=== PATIENT | female | born 1960 | race Caucasian/White ===

== ENCOUNTER → 2017-05-30 | Outpatient (REF) | payer OTHER ==
[~2017-05-30] MED LIST: /GLIM2TA PO; ALBU2TA INH; BUSP10TA PO; CEFD1CAP8 PO; CEFT500T PO; CLAR10CA3 PO; DRIS1CAP PO; FLON0.054; GABA-283 PO; GLUC500T PO; JANU100T PO; LASI20TA PO; LIDO5DIS41 TD; LIPI80TA PO; METF850T PO; MIRA3350 PO; NEXI20CA PO; NEXI40GR PO; NICO21DI5 TD; NICO21PAT EXT; NORC10TA PO; NORC7.5T35 PO; NORCOTAB PO; PRED20TAB PO; PRED50TA PO; PROT20TA11 PO; PROZ20CA11 PO; PROZ40CA PO; SING5CHW PO; SKEL800T97 PO; TIOT18INH INH; TRAD5TAB PO; TYLE325T5 PO; ZETI10TA30 PO; ZITH250T PO; spiriva handihaler INH
[2017-05-30 14:13] LABS: ALBUMIN 4.7 GM/DL (3.2-5.2); ALBUMIN/GLOBULIN RATIO 1.27 (1.00-1.93); ALKALINE PHOSPHATASE 111 U/L (45-117); ALT/SGPT 24 U/L (12-78); ANION GAP 5 MEQ/L (8-16); AST/SGOT 13 U/L (15-37); BILIRUBIN,TOTAL 0.5 MG/DL (0.2-1.0); BLOOD UREA NITROGEN 7 MG/DL (7-18); CALCIUM LEVEL 10.2 MG/DL (8.5-10.1); CARBON DIOXIDE LEVEL 43 MEQ/L (21-32); CHLORIDE LEVEL 90 MEQ/L (98-107); CHOLESTEROL LEVEL 167 MG/DL (<200); CREATININE FOR GFR 0.69 MG/DL (0.55-1.02); GLOMERULAR FILTRATION RATE > 60.0 (>51); GLUCOSE, FASTING 203 MG/DL (70-105); MAGNESIUM LEVEL 1.9 MG/DL (1.8-2.4); POTASSIUM SERUM 4.1 MEQ/L (3.5-5.1); SODIUM LEVEL 138 MEQ/L (136-145); TOTAL PROTEIN 8.4 GM/DL (6.4-8.2); TRIGLYCERIDES LEVEL 162 MG/DL (<150)
[2017-06-05 00:08] LABS: BENZODIAZEPINES, URINE SCREEN Negative ng/mL (Cutoff=200); METHADONE, URINE SCREEN Negative ng/mL (Cutoff=300); OPIATES, URINE Positive ng/mL (Cutoff=300)
== END ==
LOC: M SFHCPLAZ 10:39
PROVIDERS: ATTEND Family Medicine
DX: E78.2 Mixed hyperlipidemia (principal); Z71.1 Person with feared health complaint in whom no diagnosis is made; E11.9 Type 2 diabetes mellitus without complications; I10 Essential (primary) hypertension; E55.9 Vitamin D deficiency, unspecified; M47.816 Spondylosis without myelopathy or radiculopathy, lumbar region

== ENCOUNTER → 2017-10-02 | Outpatient (CLI) | payer OTHER ==
[2017-10-02 09:21] LABS: BASO % 0.4 % (0.0-1.0); EOS # 0.2 10^3/uL (0.0-0.50); EOS % 1.7 % (0.0-3.0); IMMATURE GRANULOCYTE % 0.3 % (0-0); LYMPH # 2.7 10^3/uL (1.5-4.5); MEAN CORPUSCULAR HEMOGLOBIN 31.1 pg (27.0-33.0); MEAN CORPUSCULAR HGB CONC 31.5 g/dl (32.0-36.5); MEAN CORPUSCULAR VOLUME 98.7 fl (80.0-96.0); MONO # 0.6 10^3/uL (0.0-0.8); MONO % 6.5 % (0.0-5.0); NEUTROPHILS % 63.1 % (36.0-66.0); PLATELET COUNT, AUTOMATED 249 10^3/uL (150-450); RED CELL DISTRIBUTION WIDTH 12.5 % (11.5-14.5); WHITE BLOOD COUNT 9.5 10^3/uL (4.0-10.0)
[2017-10-02 09:47] LABS: ALBUMIN 4.4 GM/DL (3.2-5.2); ALBUMIN/GLOBULIN RATIO 1.38 (1.00-1.93); ALKALINE PHOSPHATASE 100 U/L (45-117); ALT/SGPT 25 U/L (12-78); ANION GAP 2 MEQ/L (8-16); AST/SGOT 12 U/L (7-37); BILIRUBIN,TOTAL 0.5 MG/DL (0.2-1.0); BLOOD UREA NITROGEN 9 MG/DL (7-18); CALCIUM LEVEL 9.9 MG/DL (8.5-10.1); CARBON DIOXIDE LEVEL 44 MEQ/L (21-32); CHLORIDE LEVEL 94 MEQ/L (98-107); CREATININE FOR GFR 0.59 MG/DL (0.55-1.02); FERRITIN 102 NG/ML (8-252); GLOMERULAR FILTRATION RATE > 60.0 (>51); GLUCOSE, FASTING 176 MG/DL (70-105); PERCENT SATURATION 41.1 % (13.2-45.0); POTASSIUM SERUM 4.2 MEQ/L (3.5-5.1); SODIUM LEVEL 140 MEQ/L (136-145); TOTAL IRON BINDING CAPACITY 333 UG/DL (250-450); TOTAL PROTEIN 7.6 GM/DL (6.4-8.2)
[2017-10-02 12:09] LABS: VITAMIN B12 LEVEL 352 PG/ML (247-911)
== END ==
LOC: M LAB 08:53
PROVIDERS: ATTEND Family Medicine
DX: R10.13 Epigastric pain (principal)

== ENCOUNTER → 2017-10-08 | Outpatient (CLI) | payer OTHER ==
[~2017-10-08] MED LIST changes: +ISOVUE-370 76% 100ML VIAL (Q9967) As Ordered ONE
--- NOTE | 2017-10-08 14:15 | REP ---
Clinical: Cough. Dyspnea. Technique: Axial contrast enhanced images from the thoracic inlet to the upper abdomen using 100 ml Isovue 370 intravenous contrast material with coronal and sagittal re-formations. Comparison: 02/19/2014. Findings: Subtle chronic posterior subpleural scarring is appreciated bilaterally and stable compared to 2013. Focus of scarring along the medial right middle lobe is also identified and stable. Small new areas of fibroatelectatic change to the lingula and left lung base are identified. No acute, significant consolidation nodule or mass lesion is appreciated. No pleural effusion or pneumothorax. Tracheobronchial tree is patent. No significant axillary, hilar, or mediastinal adenopathy. Mediastinum demonstrates stable atherosclerotic changes to the thoracic aorta and coronary arteries without aortic aneurysm or cardiomegaly. No pericardial effusion. Musculoskeletal structures are intact. Upper abdomen demonstrates normal bilateral adrenal glands and evidence for prior cholecystectomy. Impression: 1. Chronic stable changes are appreciated. 2. A relatively new triangular focus of density in the lingula measures 2 cm maximal diameter and likely represents fibroatelectatic change and less likely active pathology. Consider reevaluation in 6 - 9 months to evaluate for stability. 3. No further significant mediastinal or pleuroparenchymal process appreciated. Signed by Skinny Davila MD 10/08/2017 02:06 P
== END ==
LOC: M RAD 13:05
PROVIDERS: ATTEND Family Medicine
DX: R05 Cough (principal); R06.00 Dyspnea, unspecified; R91.8 Other nonspecific abnormal finding of lung field
CPT/HCPCS: 71260; Q9967

== ENCOUNTER → 2017-10-18 | Outpatient (REF) | payer OTHER ==
[~2017-10-18] MED LIST changes: -ISOVUE-370 76% 100ML VIAL (Q9967) As Ordered ONE
== END ==
LOC: M SFHCWAGY 11:29
PROVIDERS: ATTEND Nurse Practitioner Women's Health
DX: Z12.4 Encounter for screening for malignant neoplasm of cervix (principal)

== ENCOUNTER → 2017-10-18 | Outpatient (CLI) | payer OTHER ==
--- NOTE | 2017-10-18 11:41 | REPMRS ---
Patient History The patient states she had a clinical breast exam in 10/2017. Patient is postmenopausal. Family history of prostate cancer in maternal uncle at age 50 or over. Digital Woman Screen Mammo: October 18, 2017 - Exam #: [id number] Bilateral CC and MLO view(s) were taken. Technologist: Ashely Hendrix, Technologist Prior study comparison: February 09, 2015, digital woman screen mammo performed at [facility] to [facility]. January 21, 2013, digital woman screen mammo performed at [facility]. April 25, 2011, digital mammo diagnostic bilateral, performed at [facility]. FINDINGS: There are scattered fibroglandular densities. There has been no change in the appearance of the mammogram from the prior studies. There is a mild amount of scattered fibroglandular density which is fairly symmetric. There is no interval development of dominant mass, architectural distortion, or clustered microcalcification suggestive of malignancy. ASSESSMENT: BI-RADS/ACR category 1 mammogram. Negative. Recommendation Routine screening mammogram in 1 year (for women over age 40). This mammogram was interpreted with the aid of an FDA-approved computer-aided dectection system. Electronically Signed By: Dudley Heath MD 10/18/17 [id number]
== END ==
LOC: M WHC 10:39
PROVIDERS: ATTEND Family Medicine
DX: Z12.31 Encounter for screening mammogram for malignant neoplasm of breast (principal); Z78.0 Asymptomatic menopausal state

== ENCOUNTER → 2017-10-23 | Outpatient (CLI) | payer OTHER ==
--- NOTE | 2017-10-24 08:19 | REP ---
PELVIC ULTRASOUND: CLINICAL: Pelvic and adnexal tenderness. TECHNIQUE: Transabdominal pelvic ultrasound followed by transvaginal examination for better evaluation of the endometrium and adnexa with color Doppler evaluation of the ovaries. FINDINGS: Bladder is unremarkable and measures 6.4 x 8.0 x 6.3 cm. Heterogeneous anteverted uterus measures 5.4 x 2.9 x 4.6 cm. Endometrial complex measures 4.2 mm in thickness. Very small cysts noted in the junctional zone are chronic and nonspecific/incidental. Left anterior intramural fibroid measures 1.9 x 1.7 x 1.6 cm. The bilateral ovaries are normal in appearance and vascularity without torsion. Right ovary measures 2.1 x 1.0 x 1.8 cm. Left ovary measures 1.7 x 0.9 x 1.7 cm. Right RI equals 0.52. Left RI equals 0.58. No pelvic fluid or adnexal mass lesion. IMPRESSION: 1. Heterogeneous anteverted uterus with 1.9 cm left anterior intramural fibroid. 2. Normal appearance and vascularity to the bilateral ovaries without torsion.
== END ==
LOC: M WHC 09:53
PROVIDERS: ATTEND Nurse Practitioner Women's Health
DX: R10.2 Pelvic and perineal pain (principal); R63.0 Anorexia; R14.0 Abdominal distension (gaseous)

== ENCOUNTER → 2017-12-10 | Outpatient (CLI) | payer OTHER ==
[2017-12-10 08:52] LABS: BASO # 0.1 10^3/uL (0.0-0.2); BASO % 0.4 % (0.0-1.0); EOS # 0.2 10^3/uL (0.0-0.50); EOS % 1.8 % (0.0-3.0); HEMATOCRIT 45.7 % (36.0-47.0); HEMOGLOBIN 14.6 g/dl (12.0-16.0); IMMATURE GRANULOCYTE % 0.2 % (0-0); LYMPH # 3.8 10^3/uL (1.5-4.5); LYMPH % 31.4 % (24.0-44.0); MEAN CORPUSCULAR HEMOGLOBIN 31.7 pg (27.0-33.0); MEAN CORPUSCULAR HGB CONC 31.9 g/dl (32.0-36.5); MEAN CORPUSCULAR VOLUME 99.1 fl (80.0-96.0); MONO # 0.7 10^3/uL (0.0-0.8); MONO % 5.6 % (0.0-5.0); NEUTROPHILS # 7.4 10^3/uL (1.8-7.7); NEUTROPHILS % 60.6 % (36.0-66.0); PLATELET COUNT, AUTOMATED 362 10^3/uL (150-450); RED BLOOD COUNT 4.61 10^6/uL (4.00-5.40); RED CELL DISTRIBUTION WIDTH 12.2 % (11.5-14.5); RETIC HEMOGLOBIN EQUIVALENT 36.9 pg (24-36); RETICULOCYTE # 76.5 10^9/L (17-77); RETICULOCYTE % 1.7 % (0.5-1.5); WHITE BLOOD COUNT 12.2 10^3/uL (4.0-10.0)
[2017-12-10 08:55] LABS: HEMATOCRIT 45.7 % (36.0-47.0)
[2017-12-10 09:16] LABS: ALBUMIN 4.4 GM/DL (3.2-5.2); ALBUMIN/GLOBULIN RATIO 1.38 (1.00-1.93); ALKALINE PHOSPHATASE 132 U/L (45-117); ALT/SGPT 23 U/L (12-78); ANION GAP 2 MEQ/L (8-16); AST/SGOT 16 U/L (7-37); BILIRUBIN,TOTAL 0.3 MG/DL (0.2-1.0); BLOOD UREA NITROGEN 7 MG/DL (7-18); C REACTIVE PROTEIN QUANTITATIV < 0.30 MG/DL (0.00-0.30); CALCIUM LEVEL 9.5 MG/DL (8.5-10.1); CARBON DIOXIDE LEVEL 42 MEQ/L (21-32); CHLORIDE LEVEL 93 MEQ/L (98-107); CPK CREATINE PHOSPHOKINASE 61 U/L (26-192); CREATININE FOR GFR 0.66 MG/DL (0.55-1.02); GLOMERULAR FILTRATION RATE > 60.0 (>51); GLUCOSE, FASTING 193 MG/DL (70-100); POTASSIUM SERUM 4.4 MEQ/L (3.5-5.1); SODIUM LEVEL 137 MEQ/L (136-145); TOTAL PROTEIN 7.6 GM/DL (6.4-8.2)
[2017-12-10 12:29] LABS: CARCINOEMBRYONIC ANTIGEN 2.6 NG/ML (<2.5)
[2017-12-10 12:56] LABS: CA 125 11.4 U/ML (<30.2)
[2017-12-10 13:06] LABS: PRETREATED FOLATE FOR RBCFOL 11.7 NG/ML; RBC FOLATE 537.6 NG/ML (280-791)
[2017-12-10 13:07] LABS: CA15-3 ANTIGEN 14.3 U/ML (<32.4)
== END ==
LOC: M LAB 08:19
DX: R63.4 Abnormal weight loss (principal)
CPT/HCPCS: 82378

== ENCOUNTER → 2018-01-07 | Outpatient (CLI) | payer OTHER ==
[~2018-01-07] MED LIST changes: -/GLIM2TA PO; -ALBU2TA INH; -BUSP10TA PO; -CEFD1CAP8 PO; -CEFT500T PO; -CLAR10CA3 PO; -DRIS1CAP PO; -FLON0.054; -GABA-283 PO; +GASTROGRAFIN SOLUTION 30ML (Q9963) As Ordered; -GLUC500T PO; +ISOVUE-370 76% 100ML VIAL (Q9967) As Ordered; -JANU100T PO; -LASI20TA PO; -LIDO5DIS41 TD; -LIPI80TA PO; -METF850T PO; -MIRA3350 PO; -NEXI20CA PO; -NEXI40GR PO; -NICO21DI5 TD; -NICO21PAT EXT; -NORC10TA PO; -NORC7.5T35 PO; -NORCOTAB PO; -PRED20TAB PO; -PRED50TA PO; -PROT20TA11 PO; -PROZ20CA11 PO; -PROZ40CA PO; -SING5CHW PO; -SKEL800T97 PO; -TIOT18INH INH; -TRAD5TAB PO; -TYLE325T5 PO; -ZETI10TA30 PO; -ZITH250T PO; -spiriva handihaler INH
== END ==
LOC: M RAD 14:30
DX: K57.90 Diverticulosis of intestine, part unspecified, without perforation or abscess without bleeding (principal); R10.13 Epigastric pain; R63.4 Abnormal weight loss
CPT/HCPCS: Q9963

== ENCOUNTER → 2018-02-03 | Outpatient (CLI) | payer OTHER | LOC: M RAD 13:52 | DX: Z12.2 Encounter for screening for malignant neoplasm of respiratory organs (principal) | CPT/HCPCS: G0297 ==

== ENCOUNTER 2018-03-13 11:15 | Inpatient (IN) | payer OTHER ==
[2018-03-13 12:13] LABS: BASO % 0.2 % (0.0-1.0); HEMATOCRIT 38.2 % (36.0-47.0); IMMATURE GRANULOCYTE % 0.2 % (0-3.0); LYMPH # 0.6 10^3/uL (1.5-4.5); LYMPH % 7.6 % (24.0-44.0); MEAN CORPUSCULAR HEMOGLOBIN 31.1 pg (27.0-33.0); MEAN CORPUSCULAR HGB CONC 31.4 g/dl (32.0-36.5); MONO # 0.7 10^3/uL (0.0-0.8); MONO % 7.9 % (0.0-5.0); NEUTROPHILS # 6.9 10^3/uL (1.8-7.7); NEUTROPHILS % 84.1 % (36.0-66.0); PLATELET COUNT, AUTOMATED 231 10^3/uL (150-450); RED BLOOD COUNT 3.86 10^6/uL (4.00-5.40); RED CELL DISTRIBUTION WIDTH 12.1 % (11.5-14.5); WHITE BLOOD COUNT 8.3 10^3/uL (4.0-10.0)
[2018-03-13] MEDS: methylPREDNISolone INJ 125 MG/2 ML VIAL (J2930) IV (12:14)
[2018-03-13 12:29] LABS: LACTIC ACID SEPSIS PROTOCOL 1.2 MMOL/L (0.4-2.0)
[2018-03-13 12:30] LABS: BLOOD UREA NITROGEN 9 MG/DL (7-18); CALCIUM LEVEL 9.3 MG/DL (8.5-10.1); CHLORIDE LEVEL 87 MEQ/L (98-107); CPK CREATINE PHOSPHOKINASE 93 U/L (26-192); CREATININE FOR GFR 0.57 MG/DL (0.55-1.30); GLOMERULAR FILTRATION RATE > 60.0 (>51); GLUCOSE, FASTING 189 MG/DL (70-100); POTASSIUM SERUM 3.6 MEQ/L (3.5-5.1); SODIUM LEVEL 134 MEQ/L (136-145); TROPONIN I < 0.02 NG/ML (< 0.10)
[2018-03-13] MEDS: IPRATROPIUM 0.5MG/ALBUTEROL 2.5MG INH SOL UD 3ML (DUONEB)(J7620) NEB ×7 (12:31→19:38)
[2018-03-13 12:37] LABS: CK-MB VALUE MASS < 1.0 NG/ML (<3.6); MB/CK RELATIVE INDEX 1.07 (< OR =4); NT-PRO BNP 72 PG/ML (<125); THYROID STIMULATING HORMONE 0.303 uIU/ML (0.358-3.740)
[2018-03-13 12:40] LABS: ABG BASE EXCESS 13.5 (-2.0-2.0); ABG HCO3 42.2 MEQ/L (22.0-26.0); ABG O2 SATURATION 91.6 % (95.0-99.0); ABG PARTIAL PRESSURE O2 63.9 mmHg (75.0-100.0); ABG STANDARD HCO3 37.2 MEQ/L (22.0-26.0); ABG TOTAL CO2 44.6 MEQ/L (22.0-29.0); ABG pH (ARTERIAL) 7.364 UNITS (7.350-7.450)
[2018-03-13 12:43] LABS: ABG PARTIAL PRESSURE CO2 75.8 mmHg (35.0-45.0)
[2018-03-13 13:05] LABS: ANION GAP 1 MEQ/L (8-16); CARBON DIOXIDE LEVEL 46 MEQ/L (21-32)
[2018-03-13] MEDS ORDERED: GLUCOSE 4 GM CHEW TABLET PO (19:00)
[2018-03-13] MEDS ORDERED: IPRATROPIUM 0.5MG/ALBUTEROL 2.5MG INH SOL UD 3ML (DUONEB)(J7620) NEB (19:00)
[2018-03-13] MEDS ORDERED: DEXTROSE 50% 50 ML SYRINGE IV (19:00)
[2018-03-13] MEDS ORDERED: GLUCAGON FOR INJ 1 MG VIAL (J1610) SC (19:00)
[2018-03-13] MEDS ORDERED: ONDANSETRON 4MG/2ML VIAL (J2405) IV (19:00)
[2018-03-13 19:28] LABS: T UPTAKE 32 % (30-39); THYROXINE (T4) 9.5 UG/DL (4.5-12.0)
[2018-03-13] MEDS: cefTRIAXone SOD 2 GM in D5W MINI-BAG PLUS 50 ML IV (20:13)
[2018-03-13] MEDS: ADVAIR HFA 230/21MCG INHALER INH (21:00)
[2018-03-13] MEDS: NICOTINE 21MG/24HR 1 EA TRANSDERMAL TD (21:00)
[2018-03-13 22:15] LABS: CK-MB VALUE MASS < 1.0 NG/ML (<3.6); CPK CREATINE PHOSPHOKINASE 100 U/L (26-192); TROPONIN I < 0.02 NG/ML (< 0.10)
[2018-03-13 23:13] LABS: BEDSIDE GLUCOSE 388 MG/DL (70-105)
[2018-03-14] MEDS: POTASSIUM CHLORIDE 10 MEQ SR TABLET PO (00:01)
[2018-03-14] MEDS: SENOKOT S TAB PO ×3 (00:01→21:25)
[2018-03-14] MEDS: methylPREDNISolone INJ 125 MG/2 ML VIAL (J2930) IV ×3 (00:01→23:23)
[2018-03-14] MEDS: HumaLOG INSULIN (NovoLOG) PER UNIT SC ×5 (00:02→21:26)
[2018-03-14] MEDS: AZITHROMYCIN INJ 500 MG, VIAL MATE ADAPTER 1 EACH in D5W 250 ML IV ×2 (00:03→22:29)
[2018-03-14] MEDS: IPRATROPIUM 0.5MG/ALBUTEROL 2.5MG INH SOL UD 3ML (DUONEB)(J7620) NEB ×4 (02:52→19:52)
[2018-03-14 05:44] LABS: HEMOGLOBIN 12.1 g/dl (12.0-15.5); MEAN CORPUSCULAR HEMOGLOBIN 30.7 pg (27.0-33.0); MEAN CORPUSCULAR HGB CONC 31.8 g/dl (32.0-36.5); MEAN CORPUSCULAR VOLUME 96.4 fl (80.0-96.0); PLATELET COUNT, AUTOMATED 249 10^3/uL (150-450); RED BLOOD COUNT 3.94 10^6/uL (4.00-5.40); RED CELL DISTRIBUTION WIDTH 11.9 % (11.5-14.5); WHITE BLOOD COUNT 6.5 10^3/uL (4.0-10.0)
[2018-03-14 06:06] LABS: ANION GAP 3 MEQ/L (8-16); BLOOD UREA NITROGEN 11 MG/DL (7-18); C REACTIVE PROTEIN QUANTITATIV 9.23 MG/DL (0.00-0.30); CALCIUM LEVEL 9.7 MG/DL (8.5-10.1); CARBON DIOXIDE LEVEL 45 MEQ/L (21-32); CHLORIDE LEVEL 88 MEQ/L (98-107); GLOMERULAR FILTRATION RATE > 60.0 (>51); GLUCOSE, FASTING 272 MG/DL (70-100); MAGNESIUM LEVEL 2.2 MG/DL (1.8-2.4); POTASSIUM SERUM 3.7 MEQ/L (3.5-5.1); SODIUM LEVEL 136 MEQ/L (136-145)
[2018-03-14] MEDS: ADVAIR HFA 230/21MCG INHALER INH ×2 (07:33→19:51)
[2018-03-14] MEDS: OMEPRAZOLE 20 MG CAP PO (08:26)
[2018-03-14] MEDS: ENOXAPARIN 40 MG/0.4 ML SYRINGE (J1650) SC (08:26)
[2018-03-14] MEDS: EZETIMIBE 10 MG TAB (ZETIA) PO (08:26)
[2018-03-14] MEDS: FLUoxetine 20 MG CAP PO (08:26)
[2018-03-14] MEDS: FUROSEMIDE 20 MG TAB PO (08:27)
[2018-03-14] MEDS: LORATADINE 10 MG TAB PO (08:27)
[2018-03-14] MEDS: MONTELUKAST 10 MG TAB PO (08:27)
[2018-03-14 11:45] LABS: BEDSIDE GLUCOSE 269 MG/DL (70-105)
[2018-03-14 17:15] LABS: BEDSIDE GLUCOSE 215 MG/DL (70-105)
[2018-03-14 21:12] LABS: BEDSIDE GLUCOSE 304 MG/DL (70-105)
[2018-03-14] MEDS: cefTRIAXone SOD 2 GM in D5W MINI-BAG PLUS 50 ML IV (21:25)
[2018-03-14] MEDS: NICOTINE 21MG/24HR 1 EA TRANSDERMAL TD (21:27)
[2018-03-14] MEDS: ACETAMINOPHEN 500 MG TAB PO (22:29)
[2018-03-15] MEDS: IPRATROPIUM 0.5MG/ALBUTEROL 2.5MG INH SOL UD 3ML (DUONEB)(J7620) NEB ×4 (01:51→20:00)
[2018-03-15 05:40] LABS: HEMATOCRIT 39.5 % (36.0-47.0); HEMOGLOBIN 12.3 g/dl (12.0-15.5); MEAN CORPUSCULAR HEMOGLOBIN 30.5 pg (27.0-33.0); MEAN CORPUSCULAR HGB CONC 31.1 g/dl (32.0-36.5); PLATELET COUNT, AUTOMATED 252 10^3/uL (150-450); RED BLOOD COUNT 4.03 10^6/uL (4.00-5.40); RED CELL DISTRIBUTION WIDTH 11.9 % (11.5-14.5); WHITE BLOOD COUNT 13.3 10^3/uL (4.0-10.0)
[2018-03-15 05:57] LABS: BLOOD UREA NITROGEN 13 MG/DL (7-18); C REACTIVE PROTEIN QUANTITATIV 3.93 MG/DL (0.00-0.30); CALCIUM LEVEL 9.8 MG/DL (8.5-10.1); CHLORIDE LEVEL 90 MEQ/L (98-107); CREATININE FOR GFR 0.63 MG/DL (0.55-1.30); GLOMERULAR FILTRATION RATE > 60.0 (>51); GLUCOSE, FASTING 299 MG/DL (70-100); MAGNESIUM LEVEL 2.2 MG/DL (1.8-2.4); POTASSIUM SERUM 4.7 MEQ/L (3.5-5.1); SODIUM LEVEL 135 MEQ/L (136-145)
[2018-03-15 06:20] LABS: CARBON DIOXIDE LEVEL 49 MEQ/L (21-32)
[2018-03-15] MEDS: ADVAIR HFA 230/21MCG INHALER INH ×2 (07:51→20:08)
[2018-03-15] MEDS: FLUoxetine 20 MG CAP PO (09:54)
[2018-03-15] MEDS: OMEPRAZOLE 20 MG CAP PO (09:54)
[2018-03-15] MEDS: FUROSEMIDE 20 MG TAB PO (09:54)
[2018-03-15] MEDS: SENOKOT S TAB PO ×2 (09:55→21:13)
[2018-03-15] MEDS: MONTELUKAST 10 MG TAB PO (09:55)
[2018-03-15] MEDS: LORATADINE 10 MG TAB PO (09:55)
[2018-03-15] MEDS: ENOXAPARIN 40 MG/0.4 ML SYRINGE (J1650) SC (09:55)
[2018-03-15] MEDS: EZETIMIBE 10 MG TAB (ZETIA) PO (09:55)
[2018-03-15] MEDS: HumaLOG INSULIN (NovoLOG) PER UNIT SC ×4 (09:58→21:14)
[2018-03-15 11:36] LABS: BEDSIDE GLUCOSE 257 MG/DL (70-105)
[2018-03-15] MEDS: methylPREDNISolone INJ 125 MG/2 ML VIAL (J2930) IV ×2 (12:34→23:37)
[2018-03-15 16:30] LABS: BEDSIDE GLUCOSE 308 MG/DL (70-105)
[2018-03-15] MEDS: cefTRIAXone SOD 2 GM in D5W MINI-BAG PLUS 50 ML IV (19:53)
[2018-03-15 20:39] LABS: BEDSIDE GLUCOSE 392 MG/DL (70-105)
[2018-03-15] MEDS: AZITHROMYCIN INJ 500 MG, VIAL MATE ADAPTER 1 EACH in D5W 250 ML IV (21:11)
[2018-03-15] MEDS: ACETAMINOPHEN 500 MG TAB PO (21:13)
[2018-03-15] MEDS: NICOTINE 21MG/24HR 1 EA TRANSDERMAL TD (21:14)
[2018-03-16] MEDS: IPRATROPIUM 0.5MG/ALBUTEROL 2.5MG INH SOL UD 3ML (DUONEB)(J7620) NEB ×4 (01:45→20:00)
[2018-03-16 06:06] LABS: HEMATOCRIT 38.4 % (36.0-47.0); HEMOGLOBIN 12.2 g/dl (12.0-15.5); MEAN CORPUSCULAR HEMOGLOBIN 30.5 pg (27.0-33.0); MEAN CORPUSCULAR HGB CONC 31.8 g/dl (32.0-36.5); PLATELET COUNT, AUTOMATED 263 10^3/uL (150-450); RED CELL DISTRIBUTION WIDTH 11.9 % (11.5-14.5); WHITE BLOOD COUNT 9.3 10^3/uL (4.0-10.0)
[2018-03-16 06:32] LABS: BLOOD UREA NITROGEN 11 MG/DL (7-18); C REACTIVE PROTEIN QUANTITATIV 1.79 MG/DL (0.00-0.30); CALCIUM LEVEL 9.3 MG/DL (8.5-10.1); CHLORIDE LEVEL 89 MEQ/L (98-107); CREATININE FOR GFR 0.46 MG/DL (0.55-1.30); GLOMERULAR FILTRATION RATE > 60.0 (>51); GLUCOSE, FASTING 279 MG/DL (70-100); MAGNESIUM LEVEL 2.2 MG/DL (1.8-2.4); POTASSIUM SERUM 4.3 MEQ/L (3.5-5.1); SODIUM LEVEL 137 MEQ/L (136-145)
[2018-03-16 06:42] LABS: ANION GAP 1 MEQ/L (8-16)
[2018-03-16 06:43] LABS: CARBON DIOXIDE LEVEL 47 MEQ/L (21-32)
[2018-03-16] MEDS: ADVAIR HFA 230/21MCG INHALER INH ×2 (08:04→21:00)
[2018-03-16] MEDS: OMEPRAZOLE 20 MG CAP PO (09:30)
[2018-03-16] MEDS: FLUoxetine 20 MG CAP PO (09:30)
[2018-03-16] MEDS: HumaLOG INSULIN (NovoLOG) PER UNIT SC ×4 (09:30→21:02)
[2018-03-16] MEDS: MONTELUKAST 10 MG TAB PO (09:30)
[2018-03-16] MEDS: SENOKOT S TAB PO ×2 (09:30→21:03)
[2018-03-16] MEDS: ENOXAPARIN 40 MG/0.4 ML SYRINGE (J1650) SC (09:30)
[2018-03-16] MEDS: FUROSEMIDE 20 MG TAB PO (09:31)
[2018-03-16] MEDS: LORATADINE 10 MG TAB PO (09:31)
[2018-03-16] MEDS: EZETIMIBE 10 MG TAB (ZETIA) PO (09:31)
[2018-03-16 12:20] LABS: BEDSIDE GLUCOSE 295 MG/DL (70-105)
[2018-03-16] MEDS ORDERED: MOM 30ML SUSPENSION UDC PO (12:30)
[2018-03-16] MEDS ORDERED: BISACODYL 10 MG SUPP PR (12:30)
[2018-03-16] MEDS: methylPREDNISolone INJ 125 MG/2 ML VIAL (J2930) IV ×2 (13:03→23:32)
[2018-03-16 17:07] LABS: BEDSIDE GLUCOSE 282 MG/DL (70-105)
[2018-03-16] MEDS: cefTRIAXone SOD 2 GM in D5W MINI-BAG PLUS 50 ML IV (19:50)
[2018-03-16] MEDS: AZITHROMYCIN INJ 500 MG, VIAL MATE ADAPTER 1 EACH in D5W 250 ML IV (21:01)
[2018-03-16] MEDS: guaiFENesin ER 600 MG TAB PO (21:02)
[2018-03-16] MEDS: NICOTINE 21MG/24HR 1 EA TRANSDERMAL TD (21:02)
[2018-03-16 21:03] LABS: BEDSIDE GLUCOSE 335 MG/DL (70-105)
[2018-03-16] MEDS: ACETAMINOPHEN 500 MG TAB PO (21:08)
[2018-03-17] MEDS: IPRATROPIUM 0.5MG/ALBUTEROL 2.5MG INH SOL UD 3ML (DUONEB)(J7620) NEB ×4 (02:00→20:00)
[2018-03-17 06:19] LABS: HEMATOCRIT 39.7 % (36.0-47.0); HEMOGLOBIN 12.6 g/dl (12.0-15.5); MEAN CORPUSCULAR HEMOGLOBIN 30.6 pg (27.0-33.0); MEAN CORPUSCULAR HGB CONC 31.7 g/dl (32.0-36.5); MEAN CORPUSCULAR VOLUME 96.4 fl (80.0-96.0); PLATELET COUNT, AUTOMATED 303 10^3/uL (150-450); RED BLOOD COUNT 4.12 10^6/uL (4.00-5.40); RED CELL DISTRIBUTION WIDTH 12.1 % (11.5-14.5); WHITE BLOOD COUNT 8.9 10^3/uL (4.0-10.0)
[2018-03-17 06:35] LABS: ANION GAP 1 MEQ/L (8-16); BLOOD UREA NITROGEN 11 MG/DL (7-18); C REACTIVE PROTEIN QUANTITATIV 1.23 MG/DL (0.00-0.30); CALCIUM LEVEL 9.7 MG/DL (8.5-10.1); CARBON DIOXIDE LEVEL 43 MEQ/L (21-32); CHLORIDE LEVEL 91 MEQ/L (98-107); CREATININE FOR GFR 0.58 MG/DL (0.55-1.30); GLOMERULAR FILTRATION RATE > 60.0 (>51); GLUCOSE, FASTING 325 MG/DL (70-100); MAGNESIUM LEVEL 2.1 MG/DL (1.8-2.4); POTASSIUM SERUM 5.1 MEQ/L (3.5-5.1); SODIUM LEVEL 135 MEQ/L (136-145)
[2018-03-17] MEDS: MONTELUKAST 10 MG TAB PO (08:01)
[2018-03-17] MEDS: FLUoxetine 20 MG CAP PO (08:01)
[2018-03-17] MEDS: OMEPRAZOLE 20 MG CAP PO (08:01)
[2018-03-17] MEDS: guaiFENesin ER 600 MG TAB PO ×2 (08:01→21:57)
[2018-03-17] MEDS: EZETIMIBE 10 MG TAB (ZETIA) PO (08:01)
[2018-03-17] MEDS: FUROSEMIDE 20 MG TAB PO (08:01)
[2018-03-17] MEDS: SENOKOT S TAB PO ×2 (08:01→21:56)
[2018-03-17] MEDS: LORATADINE 10 MG TAB PO (08:01)
[2018-03-17] MEDS: HumaLOG INSULIN (NovoLOG) PER UNIT SC ×4 (08:02→21:57)
[2018-03-17] MEDS: ENOXAPARIN 40 MG/0.4 ML SYRINGE (J1650) SC (08:02)
[2018-03-17] MEDS: ADVAIR HFA 230/21MCG INHALER INH ×2 (08:24→20:27)
[2018-03-17 11:56] LABS: BEDSIDE GLUCOSE 341 MG/DL (70-105)
[2018-03-17] MEDS: methylPREDNISolone INJ 40 MG/1 ML VIAL (J2920) IV (12:34)
[2018-03-17] MEDS: CEFUROXIME 500 MG TAB PO ×2 (12:35→21:56)
[2018-03-17 18:36] LABS: BEDSIDE GLUCOSE 352 MG/DL (70-105)
[2018-03-17 20:36] LABS: BEDSIDE GLUCOSE 402 MG/DL (70-105)
[2018-03-17] MEDS: AZITHROMYCIN 250 MG TAB PO (21:57)
[2018-03-17] MEDS: NICOTINE 21MG/24HR 1 EA TRANSDERMAL TD (21:57)
[2018-03-17] MEDS: ACETAMINOPHEN 500 MG TAB PO (22:00)
[2018-03-18] MEDS: methylPREDNISolone INJ 40 MG/1 ML VIAL (J2920) IV ×2 (00:28→12:00)
[2018-03-18] MEDS: IPRATROPIUM 0.5MG/ALBUTEROL 2.5MG INH SOL UD 3ML (DUONEB)(J7620) NEB ×2 (02:00→08:00)
[2018-03-18 06:51] LABS: HEMATOCRIT 39.1 % (36.0-47.0); HEMOGLOBIN 12.6 g/dl (12.0-15.5); MEAN CORPUSCULAR HEMOGLOBIN 30.8 pg (27.0-33.0); MEAN CORPUSCULAR HGB CONC 32.2 g/dl (32.0-36.5); MEAN CORPUSCULAR VOLUME 95.6 fl (80.0-96.0); PLATELET COUNT, AUTOMATED 319 10^3/uL (150-450); RED BLOOD COUNT 4.09 10^6/uL (4.00-5.40); WHITE BLOOD COUNT 8.3 10^3/uL (4.0-10.0)
[2018-03-18 07:14] LABS: ANION GAP 5 MEQ/L (8-16); BLOOD UREA NITROGEN 13 MG/DL (7-18); C REACTIVE PROTEIN QUANTITATIV 0.63 MG/DL (0.00-0.30); CALCIUM LEVEL 9.1 MG/DL (8.5-10.1); CARBON DIOXIDE LEVEL 41 MEQ/L (21-32); CHLORIDE LEVEL 92 MEQ/L (98-107); CREATININE FOR GFR 0.54 MG/DL (0.55-1.30); GLOMERULAR FILTRATION RATE > 60.0 (>51); GLUCOSE, FASTING 314 MG/DL (70-100); MAGNESIUM LEVEL 2.2 MG/DL (1.8-2.4); POTASSIUM SERUM 4.5 MEQ/L (3.5-5.1); SODIUM LEVEL 138 MEQ/L (136-145)
[2018-03-18] MEDS: guaiFENesin ER 600 MG TAB PO (08:04)
[2018-03-18] MEDS: OMEPRAZOLE 20 MG CAP PO (08:04)
[2018-03-18] MEDS: EZETIMIBE 10 MG TAB (ZETIA) PO (08:04)
[2018-03-18] MEDS: MONTELUKAST 10 MG TAB PO (08:04)
[2018-03-18] MEDS: FUROSEMIDE 20 MG TAB PO (08:04)
[2018-03-18] MEDS: CEFUROXIME 500 MG TAB PO (08:05)
[2018-03-18] MEDS: LORATADINE 10 MG TAB PO (08:05)
[2018-03-18] MEDS: FLUoxetine 20 MG CAP PO (08:05)
[2018-03-18] MEDS: SENOKOT S TAB PO (08:05)
[2018-03-18] MEDS: ENOXAPARIN 40 MG/0.4 ML SYRINGE (J1650) SC (08:05)
[2018-03-18] MEDS: HumaLOG INSULIN (NovoLOG) PER UNIT SC ×2 (08:06→12:13)
[2018-03-18] MEDS: ADVAIR HFA 230/21MCG INHALER INH (08:11)
[2018-03-18 13:16] LABS: BEDSIDE GLUCOSE 319 MG/DL (70-105)
[2018-03-18] MEDS ORDERED: GLIMEPIRIDE 2 MG TAB PO (17:30)
[2018-03-18] MEDS ORDERED: metFORMIN (GLUCOPHAGE) 1000 MG TABLET PO (18:00)
== END 2018-03-18 13:40 | disposition home or self-care (01) | DRG 140 ==
LOC: M ED 11:15 → M ED INP 19:00 → M MSPAV 22:37
DX: J44.1 Chronic obstructive pulmonary disease with (acute) exacerbation (principal); J96.11 Chronic respiratory failure with hypoxia; J96.12 Chronic respiratory failure with hypercapnia; F17.200 Nicotine dependence, unspecified, uncomplicated; E11.9 Type 2 diabetes mellitus without complications; F32.9 Major depressive disorder, single episode, unspecified; Z79.899 Other long term (current) drug therapy; I10 Essential (primary) hypertension; E66.9 Obesity, unspecified; K21.9 Gastro-esophageal reflux disease without esophagitis; E78.5 Hyperlipidemia, unspecified; M19.90 Unspecified osteoarthritis, unspecified site; M51.36 Other intervertebral disc degeneration, lumbar region; Z88.5 Allergy status to narcotic agent; Z91.018 Allergy to other foods

== ENCOUNTER → 2018-05-01 | Outpatient (CLI) | payer OTHER ==
[~2018-05-01] MED LIST changes: +E-Z-GAS II EFFERVESCENT PACKET (SODIUM BICARB./CITRIC ACID/SIMETHICONE) As Ordered; +E-Z-HD 98% w/w 340GM SUSP BTL As Ordered; +E-Z-PAQUE 96% w/w SUSP 176GM BTL As Ordered; -GASTROGRAFIN SOLUTION 30ML (Q9963) As Ordered; -ISOVUE-370 76% 100ML VIAL (Q9967) As Ordered
== END ==
LOC: M RAD 09:02
DX: R63.4 Abnormal weight loss (principal); K21.9 Gastro-esophageal reflux disease without esophagitis
CPT/HCPCS: 74245

== ENCOUNTER → 2018-05-13 | Outpatient (REF) | payer OTHER ==
[2018-05-13 11:55] LABS: BASO # 0.1 10^3/uL (0.0-0.2); BASO % 0.6 % (0.0-1.0); EOS # 0.2 10^3/uL (0.0-0.50); HEMATOCRIT 45.7 % (36.0-47.0); HEMOGLOBIN 14.5 g/dl (12.0-15.5); IMMATURE GRANULOCYTE % 0.5 % (0-3.0); LYMPH # 2.2 10^3/uL (1.5-4.5); LYMPH % 25.6 % (24.0-44.0); MEAN CORPUSCULAR HEMOGLOBIN 31.1 pg (27.0-33.0); MEAN CORPUSCULAR HGB CONC 31.7 g/dl (32.0-36.5); MEAN CORPUSCULAR VOLUME 98.1 fl (80.0-96.0); MONO # 0.6 10^3/uL (0.0-0.8); MONO % 7.3 % (0.0-5.0); NEUTROPHILS # 5.5 10^3/uL (1.8-7.7); PLATELET COUNT, AUTOMATED 341 10^3/uL (150-450); RED BLOOD COUNT 4.66 10^6/uL (4.00-5.40); RED CELL DISTRIBUTION WIDTH 13.7 % (11.5-14.5); RETIC HEMOGLOBIN EQUIVALENT 34.4 pg (24-36); RETICULOCYTE # 94.6 10^9/L (17-77); WHITE BLOOD COUNT 8.5 10^3/uL (4.0-10.0)
[2018-05-13 12:10] LABS: PTH INTACT 75.8 PG/ML (18.5-88.0); TOTAL 25(OH) VITAMIN D 23.8 NG/ML (30.0-100.0); VITAMIN B12 LEVEL 810 PG/ML (247-911)
[2018-05-13 12:12] LABS: ALBUMIN 4.1 GM/DL (3.2-5.2); ALBUMIN/GLOBULIN RATIO 1.24 (1.00-1.93); ALKALINE PHOSPHATASE 94 U/L (45-117); ALT/SGPT 22 U/L (12-78); ANION GAP 8 MEQ/L (8-16); AST/SGOT 14 U/L (7-37); BILIRUBIN,TOTAL 0.2 MG/DL (0.2-1.0); BLOOD UREA NITROGEN 9 MG/DL (7-18); CALCIUM LEVEL 9.2 MG/DL (8.5-10.1); CARBON DIOXIDE LEVEL 35 MEQ/L (21-32); CHLORIDE LEVEL 98 MEQ/L (98-107); CREATININE FOR GFR 0.64 MG/DL (0.55-1.30); GLOMERULAR FILTRATION RATE > 60.0 (>51); GLUCOSE, FASTING 178 MG/DL (70-100); POTASSIUM SERUM 4.5 MEQ/L (3.5-5.1); SODIUM LEVEL 141 MEQ/L (136-145); TOTAL PROTEIN 7.4 GM/DL (6.4-8.2)
[2018-05-13 13:29] LABS: ESTIMATED AVERAGE GLUCOSE 183 MG/DL (60-110)
[2018-05-14 13:23] LABS: ALBUMIN 4.45 GM/DL (3.29-5.55); ALBUMIN % 60.2 % (55.8-66.1); ALPHA-1-GLOBULIN % 4.2 % (2.9-4.9); ALPHA-1-GLOBULINS 0.31 GM/DL (0.17-0.41); ALPHA-2-GLOBULINS % 12.1 % (7.1-11.8); BETA-1-GLOBULINS % 6.7 % (4.7-7.2); BETA-2-GLOBULINS 0.34 GM/DL (0.19-0.55); BETA-2-GLOBULINS % 4.6 % (3.2-6.5); GAMMA GLOBULIN % 12.2 % (11.1-18.8)
== END ==
LOC: M SFHCPLAZ 09:08
DX: E53.8 Deficiency of other specified B group vitamins (principal); E55.9 Vitamin D deficiency, unspecified; E11.9 Type 2 diabetes mellitus without complications; R10.13 Epigastric pain; D75.89 Other specified diseases of blood and blood-forming organs
CPT/HCPCS: 84165

== ENCOUNTER → 2018-05-15 | Outpatient (CLI) | payer OTHER ==
[~2018-05-15] MED LIST changes: -E-Z-GAS II EFFERVESCENT PACKET (SODIUM BICARB./CITRIC ACID/SIMETHICONE) As Ordered; -E-Z-HD 98% w/w 340GM SUSP BTL As Ordered; -E-Z-PAQUE 96% w/w SUSP 176GM BTL As Ordered; +ISOVUE-370 76% 100ML VIAL (Q9967) As Ordered
== END ==
LOC: M RAD 09:00
DX: R91.8 Other nonspecific abnormal finding of lung field (principal)
CPT/HCPCS: Q9967

== ENCOUNTER → 2018-07-07 | Outpatient (REF) | payer OTHER ==
[2018-07-07 12:21] LABS: ESTIMATED AVERAGE GLUCOSE 174 MG/DL (60-110); HEMOGLOBIN A1c 7.7 %
[2018-07-07 12:27] LABS: ALBUMIN 3.8 GM/DL (3.2-5.2); ALKALINE PHOSPHATASE 89 U/L (45-117); ALT/SGPT 20 U/L (12-78); ANION GAP 5 MEQ/L (8-16); AST/SGOT 11 U/L (7-37); BILIRUBIN,TOTAL 0.2 MG/DL (0.2-1.0); BLOOD UREA NITROGEN 9 MG/DL (7-18); CALCIUM LEVEL 9.9 MG/DL (8.5-10.1); CARBON DIOXIDE LEVEL 44 MEQ/L (21-32); CHLORIDE LEVEL 91 MEQ/L (98-107); CHOLESTEROL LEVEL 224 MG/DL (<200); CHOLESTEROL RISK RATIO 4.072 (<5); CREATININE FOR GFR 0.53 MG/DL (0.55-1.30); GLOMERULAR FILTRATION RATE > 60.0 (>51); GLUCOSE, FASTING 196 MG/DL (70-100); HDL CHOLESTEROL 55 MG/DL (>40); NON-HDL-C 169 MG/DL; POTASSIUM SERUM 4.8 MEQ/L (3.5-5.1); SODIUM LEVEL 140 MEQ/L (136-145); TOTAL PROTEIN 7.6 GM/DL (6.4-8.2); TRIGLYCERIDES LEVEL 175 MG/DL (<150)
[2018-07-07 13:00] LABS: BASO % 0.3 % (0.0-1.0); EOS # 0.1 10^3/uL (0.0-0.50); EOS % 0.9 % (0.0-3.0); HEMATOCRIT 46.2 % (36.0-47.0); HEMOGLOBIN 14.1 g/dl (12.0-15.5); IMMATURE GRANULOCYTE % 0.3 % (0-3.0); LYMPH # 1.4 10^3/uL (1.5-4.5); LYMPH % 15.9 % (24.0-44.0); MEAN CORPUSCULAR HEMOGLOBIN 30.9 pg (27.0-33.0); MEAN CORPUSCULAR HGB CONC 30.5 g/dl (32.0-36.5); MEAN CORPUSCULAR VOLUME 101.1 fl (80.0-96.0); MONO # 0.5 10^3/uL (0.0-0.8); MONO % 5.8 % (0.0-5.0); NEUTROPHILS # 6.6 10^3/uL (1.8-7.7); NEUTROPHILS % 76.8 % (36.0-66.0); PLATELET COUNT, AUTOMATED 278 10^3/uL (150-450); RED BLOOD COUNT 4.57 10^6/uL (4.00-5.40); RED CELL DISTRIBUTION WIDTH 12.5 % (11.5-14.5); WHITE BLOOD COUNT 8.6 10^3/uL (4.0-10.0)
== END ==
LOC: M SFHCPLAZ 09:14
DX: M47.816 Spondylosis without myelopathy or radiculopathy, lumbar region (principal); E78.2 Mixed hyperlipidemia; E11.9 Type 2 diabetes mellitus without complications
CPT/HCPCS: 83735

== ENCOUNTER → 2018-07-08 | Outpatient (CLI) | payer OTHER | LOC: M PLARAD 15:23 | DX: R91.1 Solitary pulmonary nodule (principal); E27.9 Disorder of adrenal gland, unspecified | CPT/HCPCS: 78815 ==

== ENCOUNTER 2018-11-14 11:37 | Inpatient (IN) | payer OTHER ==
[~2018-11-14] VITALS: Ht 152.4 cm; Wt 52.8 kg
[~2018-11-14 11:37] MED LIST changes: +/GLIM2TA PO; +ALBU2TA INH; +ALBU83IN INH; +ALOG25TA PO; +AZIT-12 PO; +BUSP10TA PO; +CEFD1CAP8 PO; +CEFT500T PO; +CEFU50TA PO; +CLAR10CA3 PO; +DRIS1CAP PO; +FLON0.054; +GABA-845 PO; +GLIM4TAB PO; +GLUC500T PO; +HYDR-3716 PO; -ISOVUE-370 76% 100ML VIAL (Q9967) As Ordered; +JANU100T PO; +LASI20TA PO; +LIDO5DIS41 TD; +LIPI80TA PO; +LORA-243 PO; +METF10004 PO; +METF850T PO; +MIRA3350 PO; +MONT10TA2 PO; +NEXI20CA PO; +NEXI40GR PO; +NICO21DI5 TD; +NICO21PAT EXT; +NICO21PAT TD; +NORC10TA PO; +NORC7.5T35 PO; +NORCOTAB PO; +OMEP40CA2 PO; +PRED10TA2 PO; +PRED20TAB PO; +PRED50TA PO; +PROT20TA11 PO; +PROZ20CA11 PO; +PROZ40CA PO; +SING5CHW PO; +SKEL800T97 PO; +TIOT18INH INH; +TRAD5TAB PO; +TYLE325T5 PO; +ZETI10TA30 PO; +ZITH250T PO; +spiriva handihaler INH
[2018-11-14] MEDS ORDERED: methylPREDNISolone INJ 125 MG/2 ML VIAL (J2930) IV ONE (11:45)
[2018-11-14] MEDS: IPRATROPIUM 0.5MG/ALBUTEROL 2.5MG INH SOL UD 3ML (DUONEB)(J7620) NEB PRN ×2 (12:11→12:42)
[2018-11-14 12:20] LABS: ABG BASE EXCESS 18.1 (-2.0-2.0); ABG HCO3 54.1 MEQ/L (22.0-26.0); ABG O2 SATURATION 99.7 % (95.0-99.0); ABG PARTIAL PRESSURE O2 283.7 mmHg (75.0-100.0); ABG STANDARD HCO3 42.4 MEQ/L (22.0-26.0); ABG TOTAL CO2 58.9 MEQ/L (22.0-29.0)
[2018-11-14 12:25] LABS: ABG pH (ARTERIAL) 7.158 UNITS (7.350-7.450)
[2018-11-14 12:26] LABS: ABG PARTIAL PRESSURE CO2 156.1 mmHg (35.0-45.0)
[2018-11-14 12:48] LABS: BASO % 0.4 % (0.0-1.0); EOS # 0.1 10^3/uL (0.0-0.50); EOS % 1.2 % (0.0-3.0); HEMATOCRIT 44.9 % (36.0-47.0); HEMOGLOBIN 13.5 g/dl (12.0-15.5); LYMPH # 1.9 10^3/uL (1.5-4.5); LYMPH % 22.8 % (24.0-44.0); MEAN CORPUSCULAR HEMOGLOBIN 31.6 pg (27.0-33.0); MEAN CORPUSCULAR HGB CONC 30.1 g/dl (32.0-36.5); MEAN CORPUSCULAR VOLUME 105.2 fl (80.0-96.0); MONO # 0.7 10^3/uL (0.0-0.8); MONO % 8.7 % (0.0-5.0); NEUTROPHILS # 5.5 10^3/uL (1.8-7.7); NEUTROPHILS % 66.2 % (36.0-66.0); PLATELET COUNT, AUTOMATED 231 10^3/uL (150-450); RED BLOOD COUNT 4.27 10^6/uL (4.00-5.40); WHITE BLOOD COUNT 8.3 10^3/uL (4.0-10.0)
--- NOTE | 2018-11-14 12:55 | REP ---
CT BRAIN WITHOUT CONTRAST: HISTORY: Confusion. COMPARISON CT STUDY: March 01, 2012 CT FINDINGS: Digital lateral pricing intern radiograph is unremarkable. Bone window settings demonstrate an intact bony calvarium. No significant scalp swelling is seen. No intraorbital abnormality is seen. The visualized paranasal sinuses are clear. There is a small radiolucency in the subcortical white matter of the frontal lobes on each side inferiorly. These are most consistent with dilated perivascular spaces which is a normal variant. In any event, they are unchanged from the February 2012 prior study. There is no evidence of intracranial infarction, hemorrhage, mass, extra-axial fluid collection, or midline shift. Celis-white differentiation pattern is otherwise intact. IMPRESSION: No acute intracranial abnormality. Findings unchanged from March 01, 2012. Electronically Signed by Ad Heath MD 11/14/2018 04:13 P
[2018-11-14 12:57] LABS: INR 0.92; PROTHROMBIN TIME 12.5 SECONDS (12.1-14.4)
--- NOTE | 2018-11-14 13:39 | REP ---
PORTABLE CHEST X-RAY: Single view. HISTORY: Dyspnea and cough. COMPARISON STUDY: March 13, 2018. FINDINGS: EKG monitoring electrodes and oxygen delivery tubing are seen. There is discoid atelectasis in the left perihilar region. Lung black are otherwise clear. Heart is not enlarged. Pleural angles are sharp. No bony abnormality is seen. IMPRESSION: Left perihilar plate-like atelectasis. Otherwise no acute disease. Electronically Signed by Ad Heath MD 11/14/2018 04:13 P
[2018-11-14] MEDS ORDERED: CRES10TA32 PO (13:41)
[2018-11-14] MEDS ORDERED: FLON1SPR NARES (13:41)
[2018-11-14] MEDS ORDERED: ATRO0.063 (13:41)
[2018-11-14] MEDS ORDERED: NICOINH INH (13:41)
[2018-11-14] MEDS ORDERED: ALBU17IN2 INH ×2 (13:41→16:39)
[2018-11-14] MEDS ORDERED: [UNRECOGNIZED DRUG - CODE] (13:41)
[2018-11-14] MEDS ORDERED: GLIM2TA PO (13:41)
[2018-11-14] MEDS ORDERED: ERGO500014 PO (13:41)
[2018-11-14] MEDS ORDERED: oxygen (13:41)
[2018-11-14] MEDS ORDERED: MUCI600T37 PO (13:41)
[2018-11-14 13:50] LABS: ALBUMIN 3.8 GM/DL (3.2-5.2); ALT/SGPT 16 U/L (12-78); BILIRUBIN,DIRECT < 0.1 MG/DL (0.0-0.2); BILIRUBIN,TOTAL 0.2 MG/DL (0.2-1.0); BLOOD UREA NITROGEN 8 MG/DL (7-18); CALCIUM LEVEL 9.4 MG/DL (8.5-10.1); CHLORIDE LEVEL 89 MEQ/L (98-107); CK-MB VALUE MASS < 1.0 NG/ML (<3.6); CPK CREATINE PHOSPHOKINASE 40 U/L (26-192); CREATININE FOR GFR 0.44 MG/DL (0.55-1.30); GLOMERULAR FILTRATION RATE > 60.0 (>51); GLUCOSE, FASTING 207 MG/DL (70-100); NT-PRO BNP 76 PG/ML (<125); POTASSIUM SERUM 4.3 MEQ/L (3.5-5.1); SODIUM LEVEL 139 MEQ/L (136-145); THYROID STIMULATING HORMONE 0.908 uIU/ML (0.358-3.740); TOTAL PROTEIN 7.1 GM/DL (6.4-8.2); TROPONIN I < 0.02 NG/ML (< 0.10)
[2018-11-14 13:52] LABS: CARBON DIOXIDE LEVEL 51 MEQ/L (21-32)
[2018-11-14 14:58] LABS: ABG BASE EXCESS 21.9 (-2.0-2.0); ABG HCO3 55.9 MEQ/L (22.0-26.0); ABG O2 SATURATION 92.3 % (95.0-99.0); ABG PARTIAL PRESSURE O2 68.8 mmHg (75.0-100.0); ABG STANDARD HCO3 46.5 MEQ/L (22.0-26.0); ABG TOTAL CO2 59.8 MEQ/L (22.0-29.0); ABG pH (ARTERIAL) 7.255 UNITS (7.350-7.450)
[2018-11-14 14:59] LABS: ABG PARTIAL PRESSURE CO2 128.8 mmHg (35.0-45.0)
[2018-11-14] MEDS ORDERED: IPRATROPIUM 0.5MG/ALBUTEROL 2.5MG INH SOL UD 3ML (DUONEB)(J7620) NEB PRN (15:45)
[2018-11-14] MEDS ORDERED: MOXIFLOXACIN HCL 400 MG in APPROPRIATE DILUENT 1 EA IV ONE (16:00)
[2018-11-14] MEDS ORDERED: ALOG25TA PO (16:29)
[2018-11-14] MEDS ORDERED: CLAR10CA3 PO (16:29)
[2018-11-14] MEDS ORDERED: MONT10TA2 PO (16:29)
[2018-11-14] MEDS ORDERED: METF10004 PO (16:29)
[2018-11-14] MEDS ORDERED: DRIS50003 PO (16:29)
[2018-11-14] MEDS ORDERED: ATOR80TA59 PO (16:29)
[2018-11-14] MEDS ORDERED: GLIM4TAB PO (16:29)
[2018-11-14] MEDS ORDERED: OMEP40CA2 PO (16:29)
[2018-11-14] MEDS ORDERED: ZETI10TA30 PO (16:29)
[2018-11-14] MEDS ORDERED: [UNRECOGNIZED DRUG - CODE] PO (16:32)
[2018-11-14] MEDS ORDERED: ALBU83IN NEB (16:32)
[2018-11-14] MEDS ORDERED: HYDR-3713 PO (16:33)
[2018-11-14] MEDS ORDERED: ATRO0.063 INH (16:33)
[2018-11-14] MEDS ORDERED: MIRA3350 PO (16:34)
[2018-11-14] MEDS ORDERED: FLUO20CA8 PO (16:35)
[2018-11-14] MEDS ORDERED: FURO20TA2 PO (16:35)
--- NOTE | 2018-11-14 16:38 | HPE ---
DATE OF ADMISSION: 11/14/2018 A 57-year-old female with a past medical history of end-stage chronic obstructive pulmonary disease (COPD) requiring 3-4 liters of nasal cannula at home, history of chronic active tobacco abuse, who presents to the emergency room due to confusion noted by the family members. This has been going on approximately 3 days, which was getting worse. Upon seeing the patient, she was awake, alert, oriented times three. However, she was already placed on bilevel positive airway pressure (BiPAP) due to CO2 narcosis and hypercapnic respiratory failure. According to the one family member that lives with her, she was seeing dogs and cats chasing each other when none existed and also when asked what time it was, she would just say the word orange, which is completely out of character for her. In the emergency room (ER), she was given IV Solu-Medrol 125 mg IV push and then was given two DuoNebs. She is awake, alert, and oriented times three at this time, though on the BiPAP with the current settings of 16, 10 with an FiO2 of 50%. She had no upper respiratory symptoms, just the confusion. Denied any shortness of breath. She will be admitted to the intensive care unit (ICU) for management of COPD exacerbation, acute hypercapnic and hypoxemic respiratory failure. PAST MEDICAL HISTORY: Hypertension. Diabetes. Hyperlipidemia. End-stage COPD requiring 3-4 liters nasal cannula. History of chronic active tobacco abuse. Gastroesophageal reflux disease (GERD). ALLERGIES: She has drug allergies to CODEINE. FAMILY HISTORY: Noncontributory. SOCIAL HISTORY: The patient has a 30 pack-year history of smoking. She still smokes a pack a day. Denies alcohol or illicit drugs. MEDICATIONS SHE TAKES AT HOME ARE FOLLOWS: - Tylenol with hydrocodone one tablet orally every 6 hours as needed - albuterol inhaler every 4 hours as needed - alogliptin 25 mg orally daily - Zithromax 500 mg orally at bedtime - Ceftin 500 mg orally twice daily - cyanocobalamin 1000 mcg orally daily - ergocalciferol 50,000 units orally monthly - ezetimibe 10 mg orally daily - fluoxetine 60 mg orally daily - Flonase two sprays each nostril as needed - Lasix 40 mg orally daily - glimepiride 4 mg orally twice daily - guaifenesin 600 mg orally twice daily - loratadine 10 mg orally daily - metformin 1000 mg orally twice daily - montelukast 10 mg orally daily - nicotine 21 mg in 24 hours, transdermal patch - omeprazole 40 mg orally daily - prednisone 10 mg taper - rosuvastatin 20 mg orally daily REVIEW OF SYSTEMS: Negative all ten major systems except what is mentioned in the history of the present illness. Vital Signs: Blood pressure is 103/63, heart rate is 72, regular, respiratory rate is 18, temperature is still to be done, oxygen saturation is 92% on BiPAP. Head is atraumatic, normocephalic. Neck supple. No jugular venous distention (JVD). Lungs have diminished breath sounds bilaterally. S1, S2 audible, No murmurs appreciated. Abdomen: Soft, positive bowel sounds. No pedal edema. Skin: Intact. Neurologic Examination: Patient awake, alert, oriented times three. LABORATORY: ABG initially on admission was a pH of 7.158, a pCO2 of 156.1. Repeat is a pH of 7.255 and a pCO2 of 128.8 on BiPAP. WBC is 8.3, hemoglobin is 13.5, hematocrit is 44.9, platelets are 231,000. Sodium 139, potassium 4.3, chloride 89, CO2 51, BUN is 8, creatinine is 0.44, lactic acid 0.4, TSH 0.908. Chest x-ray shows no acute consolidations. IMPRESSION: 1. Acute hypercapnic and hypoxemic respiratory failure. 2. Chronic obstructive pulmonary disease exacerbation. PLAN: The patient is to be admitted to the ICU. Will continue BiPAP at its current settings of IPAP, EPAP 16 and 10, FiO2 of 50%. Will have Dr. Arceo manage the BiPAP for us. Will continue the patient on Solu-Medrol 40 IV every 8 hours and also give DuoNebs every 4 hours as needed. Will repeat the ABG in the morning as well as a CBC and a BMP and will continue following her care in the ICU. Total critical care time: 40 minutes.
[2018-11-14] MEDS: methylPREDNISolone INJ 40 MG/1 ML VIAL (J2920) IV SCH (16:40)
[2018-11-14] MEDS ORDERED: MED REC COMMENT (16:45)
[2018-11-14 18:13] VITALS: BP 122/54
--- NOTE | 2018-11-14 18:18 | CCN ---
DATE: 11/14/2018 START TIME: 1625 hours STOP TIME: 1702 hours Ms. Rosales is a 57-year-old female with essentially end stage obstructive lung disease with advanced hypoxemic and hypercapnic respiratory failure. She continues to smoke. According to some records, she was on recent prednisone and antibiotic as an outpatient. Apparently today she was more short of breath. Her oxygen canister ran empty on the way to the hospital. She arrived with saturations in the 50s and 60s. However, she appeared comfortable. She was placed on a nonrebreather but unfortunately blood gas done at that time showed a pH of 7.158, PCO2 of 158, and a PO2 of 283. Despite that, she was awake, alert, appropriate and able to answer all questions appropriately. She was placed on noninvasive support by the emergency room. Repeat blood gas showed a pH of 7.255, PCO2 down to 128.8, and a PO2 of 68.8. I am asked now to assist in her management. She has received steroids, aerosols and empiric antibiotics. Chest x-ray is actually clear. She states that she had some intermittent cough at home. She thinks that she may have had a fever and maybe some sweats several days ago. No hemoptysis. No chest pain. She denies any other ill contacts. She says that she is still smoking about a pack a day at home. Other laboratories show her white blood cell count 8.3, hemoglobin 13.5, platelet count of 231,000, 68% segmented neutrophils, no bands. Sodium 139, potassium 4.3, chloride 89, CO2 of 51, BUN 8, creatinine 0.44, glucose 207. Coag studies unremarkable. PHYSICAL EXAMINATION: She is awake, alert and able to answer questions. She is intermittently somnolent but easily arousable. Blood pressure 110 to 120 systolic. Heart rate 80 to 90 with a sinus mechanism. Respiratory rate 18 to 22 without accessory muscle use and she is afebrile. HEENT: Pupils are equal and reactive. Sclerae clear. Trachea is in the midline. No obvious jugular venous distention (JVD). CHEST: Diminished but symmetric expansion. Hyperresonant to percussion. There is some mild kyphosis. Tactile fremitus diminished but palpable. CARDIAC: Exam is distant but regular. EXTREMITIES: Peripheral pulses easily palpable. No edema. Without cyanosis or clubbing. ABDOMEN: Mildly distended. Soft with active bowel sounds. No convincing organomegaly or masses. NEUROLOGIC: As outlined above. The most pressing problem requiring my immediate presence at the bedside are: 1. Acute on chronic respiratory failure with both hypoxic and hypercapnic. 2. Underlying obstructive lung disease, advanced. 3. Continued tobacco abuse. At this point, I agree with her steroids, aerosols and antibiotics, although we may be able to discontinue those early with no infiltrate and normal white count. Adjustments were made in her noninvasive support. We will get a repeat blood gas in some time. At this point, she is still a FULL CODE. Smoking cessation is paramount, but I am not optimistic after a brief discussion with her. We will expedite transfer to the intensive care unit (ICU) when a bed is available. I left the bedside at 1702 hours. Start time was 1625 hours. 37 minutes of critical care was delivered at the bedside, not including procedures.
--- NOTE | 2018-11-14 18:38 | ECGEPIP ---
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
[2018-11-14 20:00] VITALS: BP 118/63
[2018-11-14] MEDS ORDERED: MIRALAX *UNIT DOSE* 17GM PACKET PO PRN (20:15)
[2018-11-14 21:29] LABS: ABG BASE EXCESS 20.3 (-2.0-2.0); ABG HCO3 50.7 MEQ/L (22.0-26.0); ABG O2 SATURATION 99.1 % (95.0-99.0); ABG PARTIAL PRESSURE O2 138.4 mmHg (75.0-100.0); ABG STANDARD HCO3 44.9 MEQ/L (22.0-26.0); ABG TOTAL CO2 53.4 MEQ/L (22.0-29.0); ABG pH (ARTERIAL) 7.375 UNITS (7.350-7.450)
[2018-11-14 21:30] LABS: ABG PARTIAL PRESSURE CO2 88.7 mmHg (35.0-45.0)
[2018-11-14] MEDS: NORCO, ANEXSIA 5/325MG TABLET (HYDROcodone/ACETAMINOPHEN) PO PRN (22:23)
[2018-11-15] VITALS (9 sets, daily range): BP systolic 98–139; BP diastolic 57–80; O2SAT 96
[2018-11-15] MEDS: methylPREDNISolone INJ 40 MG/1 ML VIAL (J2920) IV SCH ×3 (01:39→17:58)
[2018-11-15 04:25] LABS: BASO % 0.2 % (0.0-1.0); HEMATOCRIT 42.2 % (36.0-47.0); LYMPH # 0.7 10^3/uL (1.5-4.5); LYMPH % 13.1 % (24.0-44.0); MEAN CORPUSCULAR HGB CONC 30.8 g/dl (32.0-36.5); MEAN CORPUSCULAR VOLUME 100.7 fl (80.0-96.0); MONO # 0.2 10^3/uL (0.0-0.8); MONO % 3.1 % (0.0-5.0); NEUTROPHILS # 4.6 10^3/uL (1.8-7.7); NEUTROPHILS % 83.1 % (36.0-66.0); PLATELET COUNT, AUTOMATED 221 10^3/uL (150-450); RED BLOOD COUNT 4.19 10^6/uL (4.00-5.40); WHITE BLOOD COUNT 5.5 10^3/uL (4.0-10.0)
[2018-11-15 05:11] LABS: BLOOD UREA NITROGEN 12 MG/DL (7-18); CALCIUM LEVEL 9.7 MG/DL (8.5-10.1); CHLORIDE LEVEL 89 MEQ/L (98-107); CREATININE FOR GFR 0.49 MG/DL (0.55-1.30); GLOMERULAR FILTRATION RATE > 60.0 (>51); GLUCOSE, FASTING 234 MG/DL (70-100); POTASSIUM SERUM 4.2 MEQ/L (3.5-5.1); SODIUM LEVEL 138 MEQ/L (136-145)
[2018-11-15] MEDS ORDERED: GLUCAGON FOR INJ 1 MG VIAL (J1610) SC PRN (05:45)
[2018-11-15] MEDS ORDERED: GLUCOSE 4 GM CHEW TABLET PO PRN (05:45)
[2018-11-15] MEDS ORDERED: DEXTROSE 50% 50 ML SYRINGE IV PRN (05:45)
[2018-11-15 06:21] LABS: ABG BASE EXCESS 19.3 (-2.0-2.0); ABG HCO3 49.1 MEQ/L (22.0-26.0); ABG O2 SATURATION 97.4 % (95.0-99.0); ABG PARTIAL PRESSURE O2 94.3 mmHg (75.0-100.0); ABG STANDARD HCO3 43.7 MEQ/L (22.0-26.0); ABG TOTAL CO2 51.7 MEQ/L (22.0-29.0); ABG pH (ARTERIAL) 7.385 UNITS (7.350-7.450)
[2018-11-15] MEDS: HEPARIN SOD (PORCINE) 5000 UNITS/ML VIAL SQ SCH ×3 (07:00→22:19)
[2018-11-15] MEDS: OMEPRAZOLE 20 MG CAP PO SCH (07:01)
[2018-11-15] MEDS ORDERED: GLIMEPIRIDE 2 MG TAB PO SCH (07:30)
[2018-11-15 07:37] LABS: CARBON DIOXIDE LEVEL 47 MEQ/L (21-32)
[2018-11-15] MEDS: FLUoxetine 20 MG CAP PO SCH (08:21)
[2018-11-15] MEDS: ATORVASTATIN 20 MG TAB PO SCH (08:22)
[2018-11-15] MEDS: FUROSEMIDE 20 MG TAB PO SCH (08:22)
[2018-11-15] MEDS: MONTELUKAST 10 MG TAB PO SCH (08:23)
[2018-11-15] MEDS: EZETIMIBE 10 MG TAB (ZETIA) PO SCH (08:23)
[2018-11-15] MEDS: LORATADINE 10 MG TAB PO SCH (08:23)
[2018-11-15] MEDS: CYANOCOBALAMIN 500 MCG TAB PO SCH (08:24)
[2018-11-15] MEDS: metFORMIN (GLUCOPHAGE) 1000 MG TABLET PO SCH ×2 (08:24→17:58)
[2018-11-15 11:31] LABS: ABG BASE EXCESS 19.4 (-2.0-2.0); ABG HCO3 45.9 MEQ/L (22.0-26.0); ABG O2 SATURATION 99.2 % (95.0-99.0); ABG PARTIAL PRESSURE CO2 59.6 mmHg (35.0-45.0); ABG PARTIAL PRESSURE O2 138.3 mmHg (75.0-100.0); ABG STANDARD HCO3 43.7 MEQ/L (22.0-26.0); ABG TOTAL CO2 47.7 MEQ/L (22.0-29.0); ABG pH (ARTERIAL) 7.504 UNITS (7.350-7.450)
--- NOTE | 2018-11-15 16:25 | IPNPDOC ---
Subjective Date Seen The patient was seen on 11/15/18. Subjective Chief Complaint/HPI . General: Reports: Fatigue; Denies: Chills Pulmonary: Reports: Dyspnea; Denies: Cough Cardiovascular: Denies: Chest Pain, Palpitations Gastrointestinal: Denies: Nausea, Vomiting, Abdominal Pain Neurological: Reports: Weakness Objective Physical Examination General Exam: Positive: Alert, Cooperative, No Acute Distress Eye Exam: Positive: EOMI ENT Exam: Positive: Mucous membr. moist/pink Chest Exam: Positive: Wheezing (end exp wheeze RUL), Diminished; Negative: Rales, Rhonchi Heart Exam: Positive: Rate Normal, Normal S1, Normal S2; Negative: Gallops, Murmurs Abdomen Exam: Positive: Normal bowel sounds, Soft; Negative: Tenderness, Hepatospenomegaly, Mass Extremity Exam: Negative: Clubbing, Cyanosis, Edema Neuro Exam: Positive: Normal Speech Psych Exam: Positive: Mental status NL Assessment /Plan Assessment 1. Acute on chronic hypercapnic and hypoxic Resp Failure -patient was seen this morning on exam and had been taken off of BiPAP recently -she was speaking in full sentences without accessory muscle use, seemed comfortable on exam -c/w steroid therapy, duo-nebs as well, hold off on antibiotic therapy, CXR without infiltrates, she is afebrile without a white count, does not seem to have increased sputum production either, s/p dose of Moxifloxacin in ED on presentation -pulmonology consulted, appreciate their help -Repeat ABG shows marked improvement in both hypercapnia and pH from presentation -smoking cessation importance discussed -solu-mederol 40 q8h, begin 40 mg daily tomorrow -RSV negative, first set blood cultures negative so far -Head CT in ED appreciated, no acute intracranial pathology 2.DM2 -home medications have been continued 3. DLP -c/w home statin and zetia 4. HTN -appropriate at this time -continue with home lasix 5. Depression -prozac continued 6. DVT px -SCD/TEDS -heparin SQ Plan/VTE VTE Prophylaxis Ordered?: Yes VS, I&O, 24H, Fishbone Vital Signs/I&O Vital Signs Date Time Temp Pulse Resp B/P (MAP) Pulse Ox O2 Delivery O2 Flow Rate FiO2 11/15/18 12:00 3.0 11/15/18 08:42 40 11/15/18 08:00 97.6 59 23 139/63 (88) 91 NIPPV (BIPAP/CPAP) I&O- Last 24 Hours up to 6 AM 11/15/18 05:59 Intake Total 115 ml Output Total 350 ml Balance -235 ml Laboratory Data 24H LABS Laboratory Tests 2 11/14/18 21:17: Blood Gas Bicarbonate Standard 44.9H, Arterial Blood pH 7.375, Arterial Blood Partial Pressure CO2 88.7*H, Arterial Blood Partial Pressure O2 138.4H, Arterial Blood Total CO2 53.4H, Arterial Blood HCO3 50.7H, Arterial Blood Base Excess 20.3H, Arterial Blood Oxygen Saturation 99.1H 11/14/18 22:11: Bedside Glucose (Misc Panel) 257H 11/15/18 04:15: Immature Granulocyte % (Auto) 0.5, White Blood Count 5.5, Red Blood Count 4.19, Hemoglobin 13.0, Hematocrit 42.2, Mean Corpuscular Volume 100.7H, Mean Corpuscular Hemoglobin 31.0, Mean Corpuscular Hemoglobin Concent 30.8L, Red Cell Distribution Width 11.7, Platelet Count 221, Neutrophils (%) (Auto) 83.1H, Lymphocytes (%) (Auto) 13.1L, Monocytes (%) (Auto) 3.1, Eosinophils (%) (Auto) 0.0, Basophils (%) (Auto) 0.2, Neutrophils # (Auto) 4.6, Lymphocytes # (Auto) 0.7L, Monocytes # (Auto) 0.2, Eosinophils # (Auto) 0.0, Basophils # (Auto) 0.0, Nucleated Red Blood Cells % (auto) 0.0, Anion Gap 2L, Glomerular Filtration Rate > 60.0, Blood Urea Nitrogen 12, Creatinine 0.49L, Sodium Level 138, Potassium Level 4.2, Chloride Level 89L, Carbon Dioxide Level 47H, Calcium Level 9.7 11/15/18 06:00: Blood Gas Bicarbonate Standard 43.7H, Arterial Blood pH 7.385, Arterial Blood Partial Pressure CO2 84.0*H, Arterial Blood Partial Pressure O2 94.3, Arterial Blood Total CO2 51.7H, Arterial Blood HCO3 49.1H, Arterial Blood Base Excess 19.3H, Arterial Blood Oxygen Saturation 97.4 11/15/18 07:15: Bedside Glucose (Misc Panel) 234H 11/15/18 11:15: Blood Gas Bicarbonate Standard 43.7H, Arterial Blood pH 7.504H, Arterial Blood Partial Pressure CO2 59.6H, Arterial Blood Partial Pressure O2 138.3H, Arterial Blood Total CO2 47.7H, Arterial Blood HCO3 45.9H, Arterial Blood Base Excess 19.4H, Arterial Blood Oxygen Saturation 99.2H 11/15/18 12:02: Bedside Glucose (Misc Panel) 183H CBC/BMP Laboratory Tests 11/15/18 04:15 Red Blood Count 4.19, Mean Corpuscular Volume 100.7 H, Mean Corpuscular Hemoglobin 31.0, Mean Corpuscular Hemoglobin Concent 30.8 L, Red Cell Distribution Width 11.7, Neutrophils (%) (Auto) 83.1 H, Lymphocytes (%) (Auto) 13.1 L, Monocytes (%) (Auto) 3.1, Eosinophils (%) (Auto) 0.0, Basophils (%) (Auto) 0.2, Neutrophils # (Auto) 4.6, Lymphocytes # (Auto) 0.7 L, Monocytes # (Auto) 0.2, Eosinophils # (Auto) 0.0, Basophils # (Auto) 0.0, Calcium Level 9.7 Microbiology Microbiology 11/14/18 Blood Culture - Preliminary, Resulted No growth after 24 hours . All specim... 11/14/18 Blood Culture - Preliminary, Resulted No growth after 24 hours . All specim... 11/14/18 Respiratory Virus Panel (PCR) (GURVINDER) - Final, Complete GME ATTESTATION GME ATTESTATION My faculty preceptor for this patient encounter was physically present during the encounter and was fully available. All aspects of the patient interview, examination, medical decision making process, and medical care plan development were reviewed and approved by the faculty preceptor. The faculty preceptor is aware and concurs with the plan as stated in the body of this note and will attest to such by his/her cosignature. ISIS MORRISSEY DO Nov 15, 2018 16:25
[2018-11-15] MEDS: NICOTINE 14 MG/24 HR TRANSDERMAL TD SCH (20:06)
[2018-11-15] MEDS: NORCO, ANEXSIA 5/325MG TABLET (HYDROcodone/ACETAMINOPHEN) PO PRN (20:33)
[2018-11-16] VITALS: BP 124/58
[2018-11-16 04:00] VITALS: BP 103/56
[2018-11-16] MEDS: NORCO, ANEXSIA 5/325MG TABLET (HYDROcodone/ACETAMINOPHEN) PO PRN ×2 (05:12→20:02)
[2018-11-16] MEDS: HEPARIN SOD (PORCINE) 5000 UNITS/ML VIAL SQ SCH ×3 (05:12→22:34)
[2018-11-16] MEDS: OMEPRAZOLE 20 MG CAP PO SCH (06:37)
[2018-11-16] MEDS: ATORVASTATIN 20 MG TAB PO SCH (08:17)
[2018-11-16] MEDS: FLUoxetine 20 MG CAP PO SCH (08:17)
[2018-11-16] MEDS: CYANOCOBALAMIN 500 MCG TAB PO SCH (08:18)
[2018-11-16] MEDS: MONTELUKAST 10 MG TAB PO SCH (08:18)
[2018-11-16] MEDS: FUROSEMIDE 20 MG TAB PO SCH (08:18)
[2018-11-16] MEDS: EZETIMIBE 10 MG TAB (ZETIA) PO SCH (08:18)
[2018-11-16] MEDS: metFORMIN (GLUCOPHAGE) 1000 MG TABLET PO SCH ×2 (08:18→17:53)
[2018-11-16] MEDS: predniSONE 20 MG TAB PO SCH (08:18)
[2018-11-16] MEDS: LORATADINE 10 MG TAB PO SCH (08:18)
[2018-11-16] MEDS ORDERED: VITAMIN D 50,000 UNITS CAPSULE (ERGOCALCIFEROL 1.25MG) PO SCH (09:00)
[2018-11-16 09:22] LABS: BASO % 0.2 % (0.0-1.0); EOS % 0.1 % (0.0-3.0); HEMATOCRIT 42.3 % (36.0-47.0); HEMOGLOBIN 13.4 g/dl (12.0-15.5); LYMPH # 1.9 10^3/uL (1.5-4.5); LYMPH % 21.4 % (24.0-44.0); MEAN CORPUSCULAR HEMOGLOBIN 31.5 pg (27.0-33.0); MEAN CORPUSCULAR HGB CONC 31.7 g/dl (32.0-36.5); MEAN CORPUSCULAR VOLUME 99.5 fl (80.0-96.0); MONO # 0.7 10^3/uL (0.0-0.8); MONO % 7.3 % (0.0-5.0); NEUTROPHILS # 6.3 10^3/uL (1.8-7.7); NEUTROPHILS % 70.3 % (36.0-66.0); PLATELET COUNT, AUTOMATED 257 10^3/uL (150-450); RED BLOOD COUNT 4.25 10^6/uL (4.00-5.40)
[2018-11-16 10:05] LABS: ALBUMIN 3.6 GM/DL (3.2-5.2); ALT/SGPT 20 U/L (12-78); BILIRUBIN,TOTAL 0.3 MG/DL (0.2-1.0); BLOOD UREA NITROGEN 17 MG/DL (7-18); CALCIUM LEVEL 9.6 MG/DL (8.5-10.1); CARBON DIOXIDE LEVEL 40 MEQ/L (21-32); CHLORIDE LEVEL 88 MEQ/L (98-107); CREATININE FOR GFR 0.57 MG/DL (0.55-1.30); GLOMERULAR FILTRATION RATE > 60.0 (>51); GLUCOSE, FASTING 163 MG/DL (70-100); MAGNESIUM LEVEL 1.7 MG/DL (1.8-2.4); POTASSIUM SERUM 3.3 MEQ/L (3.5-5.1); SODIUM LEVEL 137 MEQ/L (136-145); TOTAL PROTEIN 7.2 GM/DL (6.4-8.2)
[2018-11-16] MEDS ORDERED: POTASSIUM CHLORIDE 10 MEQ SR TABLET PO ONE (13:00)
--- NOTE | 2018-11-16 14:01 | IPNPDOC ---
Text Note Date of Service The patient was seen on 11/16/18. NOTE Subjective: Pt feels well today. No SOB/CP/palpitations. No N/V. Objective: Vitals: (see below) General: No acute distress, laying comfortably in bed. HEENT: Moist mucous membranes. Neck: No JVD or lymphadenopathy Cardiac: RRR, No murmurs Pulm: Diminished breath sounds at the bases b/l. No wheezing, No rhonchi Abd: NT/ND + BS Ext: No edema or cyanosis Labs (see below) Assessment/Plan 1. Acute on chronic hypercapnic and hypoxic respiratory failure. Patient was placed on BiPAP and significantly improved. Continue steroids, nebs. Appreciate Dr. Arceo's input. We'll hold off on antibiotics for now as no signs of infection. I have discussed with the patient that her chronic pain medications will need to be titrated accordingly, with specific care to her respiratory status given her hypercapnic respiratory failure, patient verbalizes understanding. 2. Diabetes mellitus continue current insulin regimen. 3. Hyperlipidemia on statin 4. Hypertension controlled continue current meds 5. History of depression on Prozac DVT prophy: Heparin subcutaneous Physical therapy consulted. Overall prognosis guarded. VS,Fishbone, I+O VS, Fishbone, I+O Laboratory Tests 11/16/18 08:11 Red Blood Count 4.25, Mean Corpuscular Volume 99.5 H, Mean Corpuscular Hemoglobin 31.5, Mean Corpuscular Hemoglobin Concent 31.7 L, Red Cell Distribution Width 12.0, Neutrophils (%) (Auto) 70.3 H, Lymphocytes (%) (Auto) 21.4 L, Monocytes (%) (Auto) 7.3 H, Eosinophils (%) (Auto) 0.1, Basophils (%) (Auto) 0.2, Neutrophils # (Auto) 6.3, Lymphocytes # (Auto) 1.9, Monocytes # (Auto) 0.7, Eosinophils # (Auto) 0.0, Basophils # (Auto) 0.0, Calcium Level 9.6, Aspartate Amino Transf (AST/SGOT) 15, Alanine Aminotransferase (ALT/SGPT) 20, Alkaline Phosphatase 76, Total Bilirubin 0.3, Total Protein 7.2, Albumin 3.6 Vital Signs Date Time Temp Pulse Resp B/P (MAP) Pulse Ox O2 Delivery O2 Flow Rate FiO2 11/16/18 08:00 40 11/16/18 05:42 22 Nasal Cannula 3.0 11/16/18 05:12 98.6 69 103/56 96 I&O- Last 24 Hours up to 6 AM 11/16/18 06:00 Intake Total 840 ml Output Total 1410 ml Balance -570 ml MIK GRANADOS MD Nov 16, 2018 14:01
[2018-11-16 20:00] VITALS: BP 120/69
[2018-11-16] MEDS: NICOTINE 14 MG/24 HR TRANSDERMAL TD SCH (20:01)
[2018-11-17] VITALS: BP 105/65
[2018-11-17] MEDS: NORCO, ANEXSIA 5/325MG TABLET (HYDROcodone/ACETAMINOPHEN) PO PRN ×2 (03:21→09:41)
[2018-11-17 04:00] VITALS: BP 123/65
[2018-11-17 04:31] LABS: BASO % 0.3 % (0.0-1.0); EOS % 0.1 % (0.0-3.0); HEMATOCRIT 40.8 % (36.0-47.0); LYMPH # 2.5 10^3/uL (1.5-4.5); LYMPH % 24.5 % (24.0-44.0); MEAN CORPUSCULAR HEMOGLOBIN 31.3 pg (27.0-33.0); MEAN CORPUSCULAR HGB CONC 31.9 g/dl (32.0-36.5); MEAN CORPUSCULAR VOLUME 98.1 fl (80.0-96.0); MONO # 0.8 10^3/uL (0.0-0.8); MONO % 7.8 % (0.0-5.0); NEUTROPHILS # 6.9 10^3/uL (1.8-7.7); PLATELET COUNT, AUTOMATED 242 10^3/uL (150-450); RED BLOOD COUNT 4.16 10^6/uL (4.00-5.40); WHITE BLOOD COUNT 10.3 10^3/uL (4.0-10.0)
[2018-11-17 04:52] LABS: ALBUMIN 3.4 GM/DL (3.2-5.2); ALT/SGPT 22 U/L (12-78); BILIRUBIN,TOTAL 0.2 MG/DL (0.2-1.0); BLOOD UREA NITROGEN 16 MG/DL (7-18); CALCIUM LEVEL 9.1 MG/DL (8.5-10.1); CARBON DIOXIDE LEVEL 44 MEQ/L (21-32); CHLORIDE LEVEL 89 MEQ/L (98-107); CREATININE FOR GFR 0.59 MG/DL (0.55-1.30); GLOMERULAR FILTRATION RATE > 60.0 (>51); GLUCOSE, FASTING 206 MG/DL (70-100); MAGNESIUM LEVEL 1.7 MG/DL (1.8-2.4); POTASSIUM SERUM 3.9 MEQ/L (3.5-5.1); SODIUM LEVEL 136 MEQ/L (136-145); TOTAL PROTEIN 6.6 GM/DL (6.4-8.2)
[2018-11-17] MEDS: HEPARIN SOD (PORCINE) 5000 UNITS/ML VIAL SQ SCH ×2 (07:40→14:26)
[2018-11-17 08:00] VITALS: BP 100/64
[2018-11-17] MEDS: metFORMIN (GLUCOPHAGE) 1000 MG TABLET PO SCH (08:09)
[2018-11-17] MEDS: OMEPRAZOLE 20 MG CAP PO SCH (08:09)
[2018-11-17] MEDS ORDERED: MAG SULF 1GM/100ML (MAG RUN) 1 GM in APPROPRIATE DILUENT 1 EA IV ONE (09:00)
[2018-11-17] MEDS: LORATADINE 10 MG TAB PO SCH (09:36)
[2018-11-17] MEDS: FLUoxetine 20 MG CAP PO SCH (09:36)
[2018-11-17] MEDS: ATORVASTATIN 20 MG TAB PO SCH (09:36)
[2018-11-17] MEDS: FUROSEMIDE 20 MG TAB PO SCH (09:36)
[2018-11-17] MEDS: EZETIMIBE 10 MG TAB (ZETIA) PO SCH (09:37)
[2018-11-17] MEDS: predniSONE 20 MG TAB PO SCH (09:37)
[2018-11-17] MEDS: CYANOCOBALAMIN 500 MCG TAB PO SCH (09:37)
[2018-11-17] MEDS: MONTELUKAST 10 MG TAB PO SCH (09:37)
--- NOTE | 2018-11-17 09:58 | IPNPDOC ---
Subjective Date Seen The patient was seen on 11/17/18. Subjective Chief Complaint/HPI Patient transferred from hospitalist service. Admitted to ICU for hypercarbia/hypercapnia on Bipap. Has been weaned down to oxygen at 2LNC. Constitutional: Denies: Chills, Fever, Night Sweats Skin: Denies: Rash, Lesions, Breakdown Pulmonary: Reports: Dyspnea (chronic); Denies: Cough Cardiovascular: Denies: Chest Pain, Palpitations, Orthopnea, Paroxysmal Noc. Dyspnea, Lt Headedness Gastrointestinal: Denies: Nausea, Vomiting, Abdominal Pain, Diarrhea, Constipation Genitourinary: Denies: Dysuria, Frequency, Incontinence, Retention Psych: Reports: Mood Normal; Denies: Depression, Memory Issues Objective Physical Examination General Exam: Positive: Alert, Cooperative, No Acute Distress Eye Exam: Positive: EOMI ENT Exam: Positive: Mucous membr. moist/pink Chest Exam: Positive: Diminished (bibasilar); Negative: Rales, Rhonchi, Wheezing Heart Exam: Positive: Rate Normal, Normal S1, Normal S2; Negative: Gallops, Murmurs Telemetry: Positive: No significant arrhythmia Abdomen Exam: Positive: Normal bowel sounds, Soft; Negative: Tenderness, Hepatospenomegaly, Mass Extremity Exam: Negative: Clubbing, Cyanosis, Edema Neuro Exam: Positive: Normal Speech Psych Exam: Positive: Mental status NL Assessment /Plan Assessment CDT -- patient was comfortable and eager to be DCed home. She was cleared for D C by PT. She had a pre-existing appt in office in 2 days. DCed home this afternoon. Problems (1) Chronic respiratory failure with hypoxia and hypercapnia Status: Acute Problem Text: Weaned down to 2LNC./ has oxygen at home normally use 3LNC continuous. Advise to DC home on 2LNC due to recent hypercarbia. patient also c ontinues to smoke which is a safety risk and patient has been counseled. PT eval today, anticipate DC home within 1-2 days. (2) HTN (hypertension) Status: Chronic (3) Depression Status: Chronic (4) Respiratory failure with hypoxia and hypercapnia Status: Acute Response to Treatment: Improving (5) Diabetes mellitus Onset Date: 05/07/2014 Status: Chronic Plan/VTE VTE Prophylaxis Ordered?: Yes VS, I&O, 24H, Fishbone Vital Signs/I&O Vital Signs Date Time Temp Pulse Resp B/P (MAP) Pulse Ox O2 Delivery O2 Flow Rate FiO2 11/17/18 09:41 68 18 Nasal Cannula 2.0 11/17/18 08:00 97.9 100/64 (76) 96 11/16/18 08:00 I&O- Last 24 Hours up to 6 AM 11/17/18 06:00 Intake Total 1470 ml Output Total 1600 ml Balance -130 ml Laboratory Data 24H LABS Laboratory Tests 2 11/16/18 12:45: Bedside Glucose (Misc Panel) 235H 11/16/18 17:51: Bedside Glucose (Misc Panel) 222H 11/16/18 20:01: Bedside Glucose (Misc Panel) 236H 11/17/18 04:16: Immature Granulocyte % (Auto) 0.3, White Blood Count 10.3H, Red Blood Count 4.16, Hemoglobin 13.0, Hematocrit 40.8, Mean Corpuscular Volume 98.1H, Mean Corpuscular Hemoglobin 31.3, Mean Corpuscular Hemoglobin Concent 31.9L, Red Cell Distribution Width 11.8, Platelet Count 242, Neutrophils (%) (Auto) 67.0H, Lymphocytes (%) (Auto) 24.5, Monocytes (%) (Auto) 7.8H, Eosinophils (%) (Auto) 0.1, Basophils (%) (Auto) 0.3, Neutrophils # (Auto) 6.9, Lymphocytes # (Auto) 2.5, Monocytes # (Auto) 0.8, Eosinophils # (Auto) 0.0, Basophils # (Auto) 0.0, Nucleated Red Blood Cells % (auto) 0.0, Anion Gap 3L, Glomerular Filtration Rate > 60.0, Blood Urea Nitrogen 16, Creatinine 0.59, Sodium Level 136, Potassium Level 3.9, Chloride Level 89L, Carbon Dioxide Level 44H, Calcium Level 9.1, Aspartate Amino Transf (AST/SGOT) 12, Alanine Aminotransferase (ALT/SGPT) 22, Alkaline Phosphatase 81, Total Bilirubin 0.2, Total Protein 6.6, Albumin 3.4, Magnesium Level 1.7L, Albumin/Globulin Ratio 1.06 11/17/18 08:15: Bedside Glucose (Misc Panel) 131H CBC/BMP Laboratory Tests 11/17/18 04:16 Red Blood Count 4.16, Mean Corpuscular Volume 98.1 H, Mean Corpuscular Hemoglo bin 31.3, Mean Corpuscular Hemoglobin Concent 31.9 L, Red Cell Distribution Width 11.8, Neutrophils (%) (Auto) 67.0 H, Lymphocytes (%) (Auto) 24.5, Monocytes (%) (Auto) 7.8 H, Eosinophils (%) (Auto) 0.1, Basophils (%) (Auto) 0.3, Neutrophils # (Auto) 6.9, Lymphocytes # (Auto) 2.5, Monocytes # (Auto) 0.8, Eosinophils # (Auto) 0.0, Basophils # (Auto) 0.0, Calcium Level 9.1, Aspartate Amino Transf (AST/SGOT) 12, Alanine Aminotransferase (ALT/SGPT) 22, Alkaline Phosphatase 81, Total Bilirubin 0.2, Total Protein 6.6, Albumin 3.4 Microbiology Microbiology 11/14/18 Blood Culture - Preliminary, Resulted No Growth after 48 hours. All Specime... 11/14/18 Blood Culture - Preliminary, Resulted No Growth after 48 hours. All Specime... 11/14/18 Respiratory Virus Panel (PCR) ([facility]) - Final, Complete Maida PadillaP Nov 17, 2018 09:58 ESPINOZA MAYA DO Nov 17, 2018 17:50
[2018-11-17 12:20] VITALS: BP 102/52
[2018-11-17] MEDS ORDERED: NICO14PA TD (14:55)
[2018-11-17] MEDS ORDERED: PRED10TA2 PO (14:55)
--- NOTE | 2018-11-17 18:51 | DS.PDOC ---
Discharge Summary General Date of Admission Nov 14, 2018 at 15:41 Date of Discharge 11/17/18 Primary Care Physician: Abhishek Raymond M.D. Attending Physician: ESPINOZA MAYA DO Discharge Summary Consults: Pulmonary Critical Care Dr. Thai Arceo Discharge diagnosis: Acute on Chronic Hypercapneic and Hypoxic Respiratory Failure--Resolved Chronic Obstructive Pulmonary Disease Exacerbation--Resolved Tobacco Abuse Secondary diagnosis: End Stage COPD requiring 3-4 liters O2 via nasal cannula Hypertension. Diabetes. Hyperlipidemia. Gastroesophageal reflux disease (GERD). Hospital course: 57 yo F presented to the [facility] ED on 11/14/18 due to concern of confusion noted by family members. Arrived to the ED with O2 saturations in the 50s and 60s. Placed on a nonrebreather, but was found go have a severe respiratory acidosis with a high PO2 on ABG. Thus, was then placed on noninvasive support in the ED. Was treated with 125 mg IV solumedrol once and moxifloxacin 400 mg IV once. CXR was clear. Patient is also a PPD smoker at home. Patient tested negative for RSV. Blood cx were negative. Head CT showed no acute intracranial pathology. Was admitted to the ICU for COPD exacerbation and acute on chronic hypercapneic hypoxemic respiratory failure. Of note, patient has PMH significant for End Stage COPD requiring 3-4 liters of O2 via nasal cannula. Was treated with BiPAP and significantly improved. Dr. Arceo was consulted to help manage the BiPAP. Was also treated with IV solumedrol 40 mg IV q8h and DuoNebs q4h PRN. Patient was also weaned down to 2 liters nasal cannula of supplemental oxygen therapy. Patient has improved, comfortable, and hemodynamically as well as medically stable today for discharge. She was also cleared by physical therapy to go home today. Was able to walk 125 feet and climb stairs without becoming severely hypoxic. O2 saturation with activity/walking dropped to 88% at most on 2 liters via nasal cannula, which is acceptable especially since patient has COPD and her O2 saturations should ideally be titrated to between 88-92% anyway to prevent oxygen toxicity. Progress note on date of discharge: Please see Susanna Padilla's progress note on Day of Discharge 11/17/18. Agree with her physical exam findings and concur with her plan as well. Labs: Please see below Assessment: Acute on Chronic Hypercapneic and Hypoxic Respiratory Failure--Resolved Chronic Obstructive Pulmonary Disease Exacerbation--Resolved Tobacco Abuse Disposition: Home Follow-up: Already scheduled with Shiloh Welsh on 11/19/18. Activity: As tolerated and prior to hospitalization. Diet: COPD Medications on discharge: Please see below. Sent home on prednisone taper of 10 mg tablets: 4 tabs x 3 days, 3 tabs x 3 days, 2 tabs x 3 days, 1 tab x 3 days, and 1/2 tab x 3 days. Then, stop. Also prescribed nicotine patch for help with continued smoking cessation. Patient also counseled that she is to use 2 liters of oxygen via nasal cannula rather than her original 3-4 liters prior to hospitalization to prevent hyper carbia and risk for respiratory failure. She verbalized understanding. Cc: Dr. Abhishek Raymond PCP Shiloh Welsh Nurse Practitioner Time spent on discharge: Greater than 35 minutes. Vital Signs/I&Os Vital Signs Date Time Temp Pulse Resp B/P (MAP) Pulse Ox O2 Delivery O2 Flow Rate FiO2 11/17/18 12:20 97.4 65 16 102/52 (69) 95 Nasal Cannula 2.0 11/16/18 08:00 I&O- Last 24 Hours up to 6 AM 11/17/18 06:00 Intake Total 1470 ml Output Total 1600 ml Balance -130 ml Laboratory Data Labs 24H Laboratory Tests 2 11/16/18 17:51: Bedside Glucose (Misc Panel) 222H 11/16/18 20:01: Bedside Glucose (Misc Panel) 236H 11/17/18 04:16: Immature Granulocyte % (Auto) 0.3, White Blood Count 10.3H, Red Blood Count 4.16, Hemoglobin 13.0, Hematocrit 40.8, Mean Corpuscular Volume 98.1H, Mean Corpuscular Hemoglobin 31.3, Mean Corpuscular Hemoglobin Concent 31.9L, Red Cell Distribution Width 11.8, Platelet Count 242, Neutrophils (%) (Auto) 67.0H, Lymphocytes (%) (Auto) 24.5, Monocytes (%) (Auto) 7.8H, Eosinophils (%) (Auto) 0.1, Basophils (%) (Auto) 0.3, Neutrophils # (Auto) 6.9, Lymphocytes # (Auto) 2.5, Monocytes # (Auto) 0.8, Eosinophils # (Auto) 0.0, Basophils # (Auto) 0.0, Nucleated Red Blood Cells % (auto) 0.0, Anion Gap 3L, Glomerular Filtration Rate > 60.0, Blood Urea Nitrogen 16, Creatinine 0.59, Sodium Level 136, Potassium Level 3.9, Chloride Level 89L, Carbon Dioxide Level 44H, Calcium Level 9.1, Aspartate Amino Transf (AST/SGOT) 12, Alanine Aminotransferase (ALT/SGPT) 22, Alkaline Phosphatase 81, Total Bilirubin 0.2, Total Protein 6.6, Albumin 3.4, Magnesium Level 1.7L, Albumin/Globulin Ratio 1.06 11/17/18 08:15: Bedside Glucose (Misc Panel) 131H 11/17/18 12:18: Bedside Glucose (Misc Panel) 232H CBC/BMP Laboratory Tests 11/17/18 04:16 Red Blood Count 4.16, Mean Corpuscular Volume 98.1 H, Mean Corpuscular H emoglobin 31.3, Mean Corpuscular Hemoglobin Concent 31.9 L, Red Cell Distribution Width 11.8, Neutrophils (%) (Auto) 67.0 H, Lymphocytes (%) (Auto) 24.5, Monocytes (%) (Auto) 7.8 H, Eosinophils (%) (Auto) 0.1, Basophils (%) (Auto) 0.3, Neutrophils # (Auto) 6.9, Lymphocytes # (Auto) 2.5, Monocytes # (Auto) 0.8, Eosinophils # (Auto) 0.0, Basophils # (Auto) 0.0, Calcium Level 9.1, Aspartate Amino Transf (AST/SGOT) 12, Alanine Aminotransferase (ALT/SGPT) 22, Alkaline Phosphatase 81, Total Bilirubin 0.2, Total Protein 6.6, Albumin 3.4 FSBS Laboratory Tests Test 11/16/18 17:51 11/16/18 20:01 11/17/18 08:15 11/17/18 12:18 Range/Units Bedside Glucose (Misc Panel) 222 236 131 232 70-105 MG/DL Microbiology Microbiology 11/14/18 Blood Culture - Preliminary, Resulted No Growth after 72 hours. All specime... 11/14/18 Blood Culture - Preliminary, Resulted No Growth after 72 hours. All specime... 11/14/18 Respiratory Virus Panel (PCR) ([facility]INDER) - Final, Complete Discharge Medications Scheduled Alogliptin Benzoate (Alogliptin) 25 Mg Tab, 25 MG PO DAILY, (Reported) Atorvastatin Calcium (Atorvastatin Calcium) 80 Mg Tab, 80 MG PO DAILY, (Reported) Cyanocobalamin (B-12 Tr) 1,000 Mcg Tab, 1,000 MCG PO DAILY, (Reported) Ezetimibe (Zetia) 10 Mg Tab, 10 MG PO DAILY, (Reported) Fluoxetine Hcl (Fluoxetine) 20 Mg Cap, 60 MG PO QAM, (Reported) Furosemide (Furosemide) 20 Mg Tab, 20 MG PO DAILY, (Reported) Glimepiride (Glimepiride) 4 Mg Tab, 4 MG PO BID, (Reported) Ipratropium [place] (Atrovent Hfa) 17 Mcg/Act Aer, 2 PUFFS INH Q6H, (Reported) Loratadine (Claritin) 10 Mg Cap, 10 MG PO DAILY, (Reported) Metformin Hydrochloride (Metformin HCl) 1,000 Mg Tab, 1,000 MG PO BIDWM, (Reported) Montelukast Sodium (Montelukast Sodium) 10 Mg Tab, 10 MG PO DAILY, (Reported) Nicotine (Nicotine Transdermal Syst) 14 Mg/24 Hr Dis, 1 PATCH TD QPM Omeprazole (Omeprazole) 40 Mg Cap, 40 MG PO DAILY, (Reported) BEFORE BREAKFAST. Prednisone (Prednisone) 10 Mg Tab, 10 MG PO ASDIRECTED Take 4 tabs x 3 days.3 tabs x 3 days.2 tabs x 3 days.1 tab x 3 days.1/2 tab x 3 days. Then, stop. Vitamin D (Drisdol) 50,000 Unit Cap, 50,000 UNIT PO QWEEK, (Reported) Scheduled PRN Acetaminophen/Hydrocodone (Hydrocodone/Acetaminophen 5-325 mg) 1 Tab Tab, 1 TAB PO Q6H PRN for PAIN, (Reported) Albuterol Sulfate (Albuterol Sulfate) 2.5 Mg/3 Ml Nebu, 1 VIAL NEB QID PRN for SHORTNESS OF BREATH, (Reported) Albuterol Sulfate (Proventil Hfa) 108 Mcg/Act Aer, 2 PUFFS INH Q4H PRN for SHORTNESS OF BREATH, (Reported) Polyethylene Glycol (Miralax) 1 Pow Pow, 17 GM PO DAILY PRN for CONSTIPATION, (Reported) Allergies Coded Allergies: Moxifloxacin (Verified Allergy, Unknown, 11/14/18) Mushroom (Verified Allergy, Unknown, 06/28/13) Codeine (Verified Adverse Reaction, Mild, VOMITING / VERTIGO, 06/28/13) Amoxicillin (Unverified Adverse Reaction, Unknown, NAUSEA/VOMITING, 11/14/18) Budesonide (Unverified Adverse Reaction, Unknown, JITTERY, 11/14/18) Clavulanic Acid (Unverified Adverse Reaction, Unknown, NAUSEA/VOMITING, 11/14/18) Fluticasone (Unverified Adverse Reaction, Unknown, JITTERY, 11/14/18) Formoterol (Unverified Adverse Reaction, Unknown, JITTERY, 11/14/18) Milk Protein Extract (Unverified Adverse Reaction, Unknown, JITTERY, 11/14/18) Mometasone (Unverified Adverse Reaction, Unknown, NAUSEA/VOMITING, 11/14/18) Salmeterol (Unverified Adverse Reaction, Unknown, JITTERY, 11/14/18) GME ATTESTATION GME ATTESTATION My faculty preceptor for this patient encounter was Dr. Espinoza Mancilla, and was physically present during the encounter and was fully available. All aspects of the patient interview, examination, medical decision making process, and medical care plan development were reviewed and approved by the faculty preceptor. The faculty preceptor is aware and concurs with the plan as stated in the body of this note and will attest to such by his/her cosignature. GAURI LOZADA DO Nov 17, 2018 14:58
== END 2018-11-17 15:30 | disposition home or self-care (01) | DRG 133 ==
LOC: M ED 11:37 → M ED INP 15:41 → M ICU 18:21
PROVIDERS: ADMIT Internal Medicine; ATTEND Family Medicine
DX: J96.21 Acute and chronic respiratory failure with hypoxia (principal); E87.2 Acidosis; J44.1 Chronic obstructive pulmonary disease with (acute) exacerbation; F17.200 Nicotine dependence, unspecified, uncomplicated; I10 Essential (primary) hypertension; E11.9 Type 2 diabetes mellitus without complications; E78.5 Hyperlipidemia, unspecified; K21.9 Gastro-esophageal reflux disease without esophagitis; Z79.899 Other long term (current) drug therapy; Z88.5 Allergy status to narcotic agent; Z88.8 Allergy status to other drugs, medicaments and biological substances; Z91.018 Allergy to other foods; Z88.0 Allergy status to penicillin; Z91.011 Allergy to milk products; F32.9 Major depressive disorder, single episode, unspecified; J96.22 Acute and chronic respiratory failure with hypercapnia

== ENCOUNTER → 2018-12-04 | Outpatient (REF) | payer OTHER ==
[~2018-12-04] MED LIST changes: +ALBU17IN2 INH; +ALBU83IN NEB; +ATOR80TA59 PO; +ATRO0.063; +ATRO0.063 INH; +CRES10TA32 PO; +DRIS50003 PO; +ERGO500014 PO; +FLON1SPR NARES; +FLUO20CA8 PO; +FURO20TA2 PO; +GLIM2TA PO; +HYDR-3713 PO; +LASI20TA3 PO; +MED REC COMMENT; +MUCI600T37 PO; +NICO14PA TD; -NICO21DI5 TD; +NICO21DI6 TD; +NICOINH INH; +[UNRECOGNIZED DRUG - CODE]; +[UNRECOGNIZED DRUG - CODE] PO; +oxygen
[2018-12-04 12:21] LABS: ALBUMIN 3.7 GM/DL (3.2-5.2); ALT/SGPT 29 U/L (12-78); BILIRUBIN,TOTAL 0.2 MG/DL (0.2-1.0); BLOOD UREA NITROGEN 6 MG/DL (7-18); CALCIUM LEVEL 9.3 MG/DL (8.5-10.1); CARBON DIOXIDE LEVEL 39 MEQ/L (21-32); CHLORIDE LEVEL 94 MEQ/L (98-107); CHOLESTEROL LEVEL 229 MG/DL (<200); CHOLESTEROL RISK RATIO 3.523 (<5); CREATININE FOR GFR 0.53 MG/DL (0.55-1.30); GLOMERULAR FILTRATION RATE > 60.0 (>51); GLUCOSE, FASTING 146 MG/DL (70-100); HDL CHOLESTEROL 65 MG/DL (>40); LDL CHOLESTEROL 137 MG/DL (<100); MAGNESIUM LEVEL 1.8 MG/DL (1.8-2.4); NON-HDL-C 164 MG/DL; POTASSIUM SERUM 4.2 MEQ/L (3.5-5.1); SODIUM LEVEL 140 MEQ/L (136-145); TOTAL PROTEIN 6.6 GM/DL (6.4-8.2); TRIGLYCERIDES LEVEL 135 MG/DL (<150)
[2018-12-04 12:27] LABS: TOTAL 25(OH) VITAMIN D 47.2 NG/ML (30.0-100.0)
[2018-12-04 12:38] LABS: BASO # 0.1 10^3/uL (0.0-0.2); BASO % 0.5 % (0.0-1.0); EOS # 0.2 10^3/uL (0.0-0.50); EOS % 1.3 % (0.0-3.0); HEMATOCRIT 45.2 % (36.0-47.0); HEMOGLOBIN 14.2 g/dl (12.0-15.5); LYMPH # 2.3 10^3/uL (1.5-4.5); LYMPH % 18.6 % (24.0-44.0); MEAN CORPUSCULAR HEMOGLOBIN 31.1 pg (27.0-33.0); MEAN CORPUSCULAR HGB CONC 31.4 g/dl (32.0-36.5); MEAN CORPUSCULAR VOLUME 98.9 fl (80.0-96.0); MONO # 0.7 10^3/uL (0.0-0.8); MONO % 5.8 % (0.0-5.0); NEUTROPHILS % 72.7 % (36.0-66.0); PLATELET COUNT, AUTOMATED 306 10^3/uL (150-450); RED BLOOD COUNT 4.57 10^6/uL (4.00-5.40); WHITE BLOOD COUNT 12.4 10^3/uL (4.0-10.0)
[2018-12-04 13:30] LABS: HEMOGLOBIN A1c 8.7 %
[2018-12-04 13:44] LABS: PTH INTACT 76.7 PG/ML (18.5-88.0)
== END ==
LOC: M SFHCPLAZ 10:01
PROVIDERS: ATTEND Family Medicine
DX: J44.9 Chronic obstructive pulmonary disease, unspecified (principal); E11.9 Type 2 diabetes mellitus without complications; E78.2 Mixed hyperlipidemia; I10 Essential (primary) hypertension; E55.9 Vitamin D deficiency, unspecified

== ENCOUNTER → 2019-04-09 | Outpatient (CLI) | payer OTHER ==
[~2019-04-09] MED LIST changes: -/GLIM2TA PO; +AMAR1TAB5 PO; +CRES10TA PO; -CRES10TA32 PO; -ERGO500014 PO; -GLIM2TA PO; +GLIM2TAB29 PO; +NICO21DI3 EXT; -NICO21PAT EXT; +NORC1TAB8 PO; -NORC7.5T35 PO; +VITA500045 PO
--- NOTE | 2019-04-09 15:45 | REP ---
Clinical: Left lower quadrant/adnexal pain . Technique: Transabdominal pelvic ultrasound followed by transvaginal examination for better evaluation of the endometrium and adnexa with color Doppler evaluation of the ovaries. Findings: Bladder is unremarkable and measures 7.6 x 5.1 x 6.6 cm . Normal anteverted uterus measures 6.2 x 2.8 x 3.7 cm . The endometrial complex measures 4.7 mm thickness. No discrete uterine or endometrial abnormalities are appreciated. Bilateral ovaries are normal in appearance and vascularity without evidence for torsion. Right ovary measures 1.7 x 1.3 x 2.0 cm ; R I = 0.57 . Left ovary measures 2.5 x 1.3 x 1.4 cm ; R I = 0.63 . No pelvic fluid or adnexal mass lesion . Impression: 1. normal pelvic ultrasound
== END ==
LOC: M WHC 10:59
PROVIDERS: ATTEND Nurse Practitioner Women's Health
DX: R10.32 Left lower quadrant pain (principal); R10.2 Pelvic and perineal pain

== ENCOUNTER 2019-08-02 04:05 | Inpatient (IN) | payer OTHER ==
[~2019-08-02] VITALS: Ht 154.9 cm; Wt 61.4 kg
[~2019-08-02 04:05] MED LIST changes: -ALBU17IN2 INH; +PROV108A INH; +ZETI10TA16 PO; -ZETI10TA30 PO
[2019-08-02] MEDS ORDERED: IPRATROPIUM 0.5MG/ALBUTEROL 2.5MG INH SOL UD 3ML (DUONEB)(J7620) NEB ONE (04:30)
[2019-08-02] MEDS ORDERED: methylPREDNISolone INJ 125 MG/2 ML VIAL (J2930) IV ONE (04:30)
[2019-08-02] MEDS ORDERED: ACETAMINOPHEN TAB 650MG DOSE (2X325MG) PO ONE (04:30)
[2019-08-02 04:33] LABS: BASO # 0.1 10^3/uL (0.0-0.2); BASO % 0.5 % (0.0-1.0); HEMATOCRIT 46.6 % (36.0-47.0); HEMOGLOBIN 14.7 g/dl (12.0-15.5); LYMPH # 0.7 10^3/uL (1.5-5.0); LYMPH % 5.3 % (24.0-44.0); MEAN CORPUSCULAR HEMOGLOBIN 31.4 pg (27.0-33.0); MEAN CORPUSCULAR HGB CONC 31.5 g/dl (32.0-36.5); MEAN CORPUSCULAR VOLUME 99.6 fl (80.0-96.0); MONO # 0.9 10^3/uL (0.0-0.8); MONO % 7.1 % (0.0-5.0); NEUTROPHILS # 11.1 10^3/uL (1.5-8.5); NEUTROPHILS % 86.3 % (36.0-66.0); PLATELET COUNT, AUTOMATED 250 10^3/uL (150-450); RED BLOOD COUNT 4.68 10^6/uL (4.00-5.40); WHITE BLOOD COUNT 12.9 10^3/uL (4.0-10.0)
[2019-08-02 04:59] LABS: BLOOD UREA NITROGEN 11 MG/DL (7-18); CALCIUM LEVEL 9.5 MG/DL (8.5-10.1); CARBON DIOXIDE LEVEL 35 MEQ/L (21-32); CHLORIDE LEVEL 89 MEQ/L (98-107); CK-MB VALUE MASS < 1.0 NG/ML (<3.6); CPK CREATINE PHOSPHOKINASE 85 U/L (26-192); CREATININE FOR GFR 0.79 MG/DL (0.55-1.30); GLOMERULAR FILTRATION RATE > 60.0 (>51); GLUCOSE, FASTING 301 MG/DL (70-100); HCG, SERUM QUANTITATIVE 4 MIU/ML; MB/CK RELATIVE INDEX 1.18 (< OR =4); POTASSIUM SERUM 4.6 MEQ/L (3.5-5.1); SODIUM LEVEL 131 MEQ/L (136-145); TROPONIN I < 0.02 NG/ML (< 0.10)
[2019-08-02 05:03] LABS: INR 1.09; PROTHROMBIN TIME 13.8 SECONDS (11.8-14.0)
[2019-08-02] MEDS ORDERED: IMIPENEM/CILASTATIN 500 MG in D5W MINI-BAG PLUS 100 ML IV ONE (06:15)
[2019-08-02] MEDS ORDERED: IBUPROFEN 800 MG TAB PO ONE (06:15)
[2019-08-02] MEDS ORDERED: NORC1TAB7 PO (06:39)
[2019-08-02] MEDS ORDERED: MUCI600T31 PO (06:41)
[2019-08-02] MEDS ORDERED: IBUP-1764 PO (06:41)
[2019-08-02] MEDS ORDERED: LANS30CA PO (06:41)
[2019-08-02] MEDS ORDERED: NAPR220C14 PO (06:42)
[2019-08-02] MEDS ORDERED: DEXTROSE 50% 50 ML SYRINGE IV PRN (07:00)
[2019-08-02] MEDS ORDERED: GLUCOSE 4 GM CHEW TABLET PO PRN (07:00)
[2019-08-02] MEDS ORDERED: GLUCAGON FOR INJ 1 MG VIAL (J1610) SC PRN (07:00)
[2019-08-02] MEDS ORDERED: MIRALAX *UNIT DOSE* 17GM PACKET PO PRN (07:00)
[2019-08-02] MEDS ORDERED: ALBUTEROL 90 MCG/ACT 8GM HFA INHALER INH PRN (07:00)
--- NOTE | 2019-08-02 07:15 | HPEPDOC ---
General Date of Admission Aug 02, 2019 at 06:47 Date of Service: Aug 02, 2019 Primary Care Physician: Abhishek Raymond M.D. Attending Physician: JERSEY SALAZAR DO Chief Complaint The patient is a 58-year-old female admitted with a reason for visit of Cap, Resp Failure W Hypoxia And Hypercapnia. Source: Patient Exam Limitations: No limitations Timing/Duration: Day(s) (4) Associated Symptoms: Cough, Fever, Chills, Malaise, Shortness of breath History of Present Illness Patient's 58 years old female with past mental history of COPD, emphysema, on 2 L oxygen at home, diabetes, hyperlipidemia presented hospital with cough, pleuritic chest pain, hypoxia with oxygenation on the room air around 70. Patient stated that for past 4 days she has been having shortness of breath, increased sputum production with yellowish color, fatigue and chills. In emergency room patient was found to have fever of 100.3, white blood count was 12.9, lactic acid 1.4, glucose of 301. Chest x-ray showed left lower and middle lobe consolidation. Patient received 1 dose of imipenem in the emergency. Home Medications Scheduled Alogliptin Benzoate (Alogliptin) 25 Mg Tab, 25 MG PO DAILY, (Reported) Atorvastatin Calcium (Atorvastatin Calcium) 80 Mg Tab, 80 MG PO DAILY, (Reported) Cyanocobalamin (Vitamin B-12) (Vitamin B-12) 1,000 Mcg Tab, 1,000 MCG PO DAILY, (Reported) Ergocalciferol (Vitamin D2) (Drisdol) 50,000 Unit Cap, 50,000 UNIT PO QMONTH, (Reported) FIRST OF THE MONTH Ezetimibe (Zetia) 10 Mg Tab, 10 MG PO DAILY, (Reported) Fluoxetine Hcl (Fluoxetine HCl) 20 Mg Cap, 60 MG PO QAM, (Reported) Furosemide (Furosemide) 20 Mg Tab, 20 MG PO DAILY, (Reported) Glimepiride (Glimepiride) 4 Mg Tab, 4 MG PO BID, (Reported) Ipratropium [place] (Atrovent Hfa) 17 Mcg/Act Aer, 2 PUFFS INH Q6H, (Reported) Lansoprazole (Lansoprazole) 30 Mg Capsule.dr, 30 MG PO DAILY, (Reported) Loratadine (Claritin) 10 Mg Cap, 10 MG PO DAILY, (Reported) Metformin HCl (Metformin HCl) 1,000 Mg Tab, 1,000 MG PO BIDWM, (Reported) Montelukast Sodium (Montelukast Sodium) 10 Mg Tab, 10 MG PO DAILY, (Reported) Scheduled PRN Albuterol Sulf (Albuterol Sulfate) 2.5 Mg/3 Ml Nebu, 1 VIAL NEB QID PRN for SHORTNESS OF BREATH, (Reported) Albuterol Sulfate (Proventil Hfa) 108 Mcg/Act Aer, 2 PUFFS INH Q4H PRN for SHORTNESS OF BREATH, (Reported) Guaifenesin (Mucinex) 600 Mg Tab.er.12h, 1,200 MG PO BID PRN for CONGESTION, (Reported) Hydrocodone/Acetaminophen ([place] 5-325 Tablet) 1 Each Tablet, 1 TAB PO TID PRN for PAIN, (Reported) Naproxen Sodium (Aleve) 220 Mg Capsule, 440 MG PO Q12H PRN for PAIN, (Reported) Polyethylene Glycol 3350 (Miralax) 1 Pow Pow, 17 GM PO DAILY PRN for CONSTIPATION, (Reported) Allergies Coded Allergies: Mushroom (Verified Allergy, Unknown, 06/28/13) Protein Milk (Unverified Allergy, Unknown, 08/02/19) moxifloxacin (Verified Allergy, Unknown, 08/02/19) codeine (Verified Adverse Reaction, Mild, VOMITING / VERTIGO, 08/02/19) amoxicillin (Verified Adverse Reaction, Unknown, NAUSEA / VOMITING, 08/02/19) budesonide (Verified Adverse Reaction, Unknown, JITTERY, 08/02/19) clavulanic acid (Verified Adverse Reaction, Unknown, NAUSEA / VOMITING, 08/02/19) fluticasone (Verified Adverse Reaction, Unknown, JITTERY, 08/02/19) formoterol (Verified Adverse Reaction, Unknown, JITTERY, 08/02/19) mometasone furoate (Verified Adverse Reaction, Unknown, NAUSEA / VOMITING, 08/02/19) salmeterol (Verified Adverse Reaction, Unknown, JITTERY, 08/02/19) Past Medical History Medical History Advanced COPD with 2 L of oxygen at home Diabetes mellitus not on insulin Emphysema Hyperlipidemia Surgical History Cholecystectomy 3 C-sections Family History Mother had hypertension, father from heart attack, sister has COPD Social History * Smoker: former Smoker Alcohol: Denies Drugs: denies A-FIB/CHADSVASC A-FIB History Current/History of A-Fib/PAF?: No Current PO Anticoag Therapy: No Review of Systems Constitutional: Reports: Chills, Fever, Malaise, Fatigue Eyes: Denies: Pain, Vision change ENT: Denies: Head Aches, Ear Pain Skin: Denies: Rash, Lesions Pulmonary: Reports: Dyspnea, Cough, Pleuritic Chest Pain Cardiovascular: Denies: Chest Pain, Palpitations Gastrointestinal: Reports: Nausea; Denies: Vomiting Genitourinary: Denies: Dysuria, Frequency Hematologic: Denies: Bruising, Bleeding Excessively Endocrine: Denies: Polydipsia, Polyphagia Musculoskeletal: Denies: Neck Pain, Back Pain Neurological: Denies: Weakness, Numbness Psych: Reports: Mood Normal Physical Examination General Exam: Positive: Alert, Cooperative Eye Exam: Positive: PERRLA ENT Exam: Positive: Atraumatic, Mucous membr. moist/pink Neck Exam: Positive: Supple; Negative: JVD Chest Exam: Positive: Rhonchi (coarse lung sounds over left lung field, diminished lung sounds bilaterally), Wheezing Heart Exam: Positive: Rate Normal Telemetry: Positive: No significant arrhythmia Abdomen Exam: Positive: Normal bowel sounds Extremity Exam: Negative: Clubbing, Edema Skin Exam: Positive: Nl turgor and temperature Neuro Exam: Positive: Strength at 5/5 X4 ext Psych Exam: Positive: Mental status NL Vital Signs Vital Signs Date Time Temp Pulse Resp B/P (MAP) Pulse Ox O2 Delivery O2 Flow Rate FiO2 08/02/19 07:00 80 115/64 (81) 93 08/02/19 06:00 101.1 08/02/19 04:14 24 Nasal Cannula 4.0 Laboratory Data Labs 24H Laboratory Tests 2 08/02/19 04:18: Immature Granulocyte % (Auto) 0.8, White Blood Count 12.9H, Red Blood Count 4.68, Hemoglobin 14.7, Hematocrit 46.6, Mean Corpuscular Volume 99.6H, Mean Corpuscular Hemoglobin 31.4, Mean Corpuscular Hemoglobin Concent 31.5L, Red Cell Distribution Width 12.8, Platelet Count 250, Neutrophils (%) (Auto) 86.3H, Lymphocytes (%) (Auto) 5.3L, Monocytes (%) (Auto) 7.1H, Eosinophils (%) (Auto) 0.0, Basophils (%) (Auto) 0.5, Neutrophils # (Auto) 11.1H, Lymphocytes # (Auto) 0.7L, Monocytes # (Auto) 0.9H, Eosinophils # (Auto) 0.0, Basophils # (Auto) 0.1, Nucleated Red Blood Cells % (auto) 0.0, Prothrombin Time 13.8, Prothromb Time International Ratio 1.09, Anion Gap 7L, Glomerular Filtration Rate > 60.0, Blood Urea Nitrogen 11, Creatinine 0.79, Sodium Level 131L, Potassium Level 4.6, Chloride Level 89L, Carbon Dioxide Level 35H, Calcium Level 9.5, Total Creatine Kinase 85, Creatine Kinase MB < 1.0, Creatine Kinase MB Relative Index 1.18, Troponin I < 0.02, Human Chorionic Gonadotropin, Quant 4 08/02/19 04:21: POC Glucose (Misc Panel) 329H, POC Sodium (Misc Panel) 129L, POC Potassium (Misc Panel) 5.9H, POC Chloride (Misc Panel) 88L, POC Total CO2 (Misc Panel) 40.0H, POC Blood Urea Nitrogen (Misc Panel 15, POC Ionized Calcium (Misc Panel) 4.2L, POC Creatinine (Misc Panel) 0.6, POC Hematocrit (Misc Panel) 46.0 08/02/19 04:31: POC Total CO2 (Misc Panel) 39.0H, POC pH (Misc Panel) 7.302L, POC Base Excess (Misc Panel) 10.0H, POC Saturated Percent O2 (Misc) 93L, POC pO2 (Misc Panel) 78.0L, POC pCO2 (Misc Panel) 74.1*H, POC HCO3 (Misc Panel) 36.6H 08/02/19 05:54: Lactic Acid Level 1.4 08/02/19 06:00: POC pH (Misc Panel) 7.316L, POC Base Excess (Misc Panel) 11.0H, POC Saturated Percent O2 (Misc) 90L, POC pO2 (Misc Panel) 68.0L, POC pCO2 (Misc Panel) 72.2*H, POC HCO3 (Misc Panel) 36.8H, POC Total CO2 (Misc Panel) 39.0H CBC/BMP Laboratory Tests 08/02/19 04:18 Red Blood Count 4.68, Mean Corpuscular Volume 99.6 H, Mean Corpuscular Hemoglobin 31.4, Mean Corpuscular Hemoglobin Concent 31.5 L, Red Cell Distribution Width 12.8, Neutrophils (%) (Auto) 86.3 H, Lymphocytes (%) (Auto) 5.3 L, Monocytes (%) (Auto) 7.1 H, Eosinophils (%) (Auto) 0.0, Basophils (%) (Auto) 0.5, Neutrophils # (Auto) 11.1 H, Lymphocytes # (Auto) 0.7 L, Monocytes # (Auto) 0.9 H, Eosinophils # (Auto) 0.0, Basophils # (Auto) 0.1, Calcium Level 9.5, Total Creatine Kinase 85 Microbiology Microbiology 08/02/19 Blood Culture, Received Pending 08/02/19 Blood Culture, Received Pending 08/02/19 Respiratory Virus Panel (PCR) ([facility]UR[facility]INDER) - Final, Complete Mycoplasma Pneumoniae Assessment/Plan Patient's 58 years old female with past mental history of COPD, emphysema, on 2 L oxygen at home, diabetes, hyperlipidemia presented hospital with cough, pleuritic chest pain, hypoxia with oxygenation on the room air around 70. Kaye ent stated that for past 4 days she has been having shortness of breath, increased sputum production with yellowish color, fatigue and chills. Chest x- ray shows left middle and lower lobe infiltrate Problems (1) Respiratory failure with hypoxia and hypercapnia Status: Acute Problem Text: Patient developed acute on chronic respiratory failure secondary to left-sided pneumonia Inhalers, incentive spirometry, IV steroids (2) Community acquired pneumonia Status: Acute Problem Text: Doxycycline IV, ceftriaxone IV If patient not improve will proceed with CAT scan Incentive spirometry Blood culture, sputum culture Urine Legionella/Streptococcus antigen (3) Diabetes mellitus Onset Date: 05/07/2014 Status: Chronic Problem Text: Insulin sliding scale Diabetes diet Plan / VTE VTE Prophylaxis Ordered?: Yes JERSEY SALAZAR DO Aug 02, 2019 07:14
[2019-08-02] MEDS: IPRATROPIUM 0.02% SOLN 0.5MG/2.5 ML NEB INH SCH ×3 (08:00→20:31)
[2019-08-02 08:30] VITALS: BP 92/44
[2019-08-02] MEDS ORDERED: FUROSEMIDE 20 MG TAB PO SCH (09:00)
[2019-08-02] MEDS: HumaLOG INSULIN (NovoLOG) PER UNIT SC SCH ×4 (09:04→22:09)
--- NOTE | 2019-08-02 09:30 | REP ---
REASON: Chest pain. COMPARISON: Multiple, the latest 11/14/2018. The technique utilized in obtaining the radiograph has magnified the cardiac silhouette and accentuated the interstitial markings. New patchy opacities are seen in the left upper and left lower lobes. There is slight left CP angle blunting. The right lung is clear and unchanged. The heart is not enlarged. The osseous structures is stable and intact. IMPRESSION: Left upper and left lower lobe pneumonia. Electronically Signed by Zachary Schumacher DO 08/02/2019 09:45 A
[2019-08-02] MEDS: cefTRIAXone SOD 1 GM in D5W MINI-BAG PLUS 50 ML IV SCH (09:41)
[2019-08-02] MEDS: MONTELUKAST 10 MG TAB PO SCH (09:42)
[2019-08-02] MEDS: ATORVASTATIN 20 MG TAB PO SCH (09:42)
[2019-08-02] MEDS: CYANOCOBALAMIN 500 MCG TAB PO SCH (09:42)
[2019-08-02] MEDS: NS 1,000 ML IV SCH ×3 (09:42→22:09)
[2019-08-02] MEDS: LORATADINE 10 MG TAB PO SCH (09:42)
[2019-08-02] MEDS: FLUoxetine 20 MG CAP PO SCH (09:42)
[2019-08-02] MEDS: EZETIMIBE 10 MG TAB (ZETIA) PO SCH (09:43)
[2019-08-02] MEDS: HEPARIN SOD (PORCINE) 5000 UNITS/ML VIAL SC SCH ×2 (09:43→22:08)
[2019-08-02] MEDS: DOXYCYCLINE HYCLATE 100 MG in D5W MINI-BAG PLUS 100 ML IV SCH ×2 (12:12→21:00)
--- NOTE | 2019-08-02 13:24 | ECGEPIP ---
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
[2019-08-02 14:00] VITALS: BP 99/50
[2019-08-02] MEDS: methylPREDNISolone INJ 125 MG/2 ML VIAL (J2930) IV SCH (18:09)
[2019-08-02 22:00] VITALS: BP 108/57
[2019-08-02] MEDS: LEVEMIR (INSULIN DETEMIR) 1 UNITS/0.01ML SC SCH (22:09)
[2019-08-03] MEDS: NS 1,000 ML IV SCH ×3 (00:10→17:14)
[2019-08-03] MEDS: IPRATROPIUM 0.02% SOLN 0.5MG/2.5 ML NEB INH SCH ×4 (00:35→20:00)
[2019-08-03] MEDS: methylPREDNISolone INJ 125 MG/2 ML VIAL (J2930) IV SCH ×2 (05:21→17:29)
[2019-08-03 06:00] VITALS: BP 101/55
[2019-08-03 06:27] LABS: HEMATOCRIT 41.7 % (36.0-47.0); HEMOGLOBIN 13.2 g/dl (12.0-15.5); MEAN CORPUSCULAR HGB CONC 31.7 g/dl (32.0-36.5); MEAN CORPUSCULAR VOLUME 101.2 fl (80.0-96.0); PLATELET COUNT, AUTOMATED 277 10^3/uL (150-450); RED BLOOD COUNT 4.12 10^6/uL (4.00-5.40); WHITE BLOOD COUNT 15.7 10^3/uL (4.0-10.0)
[2019-08-03 06:50] LABS: BLOOD UREA NITROGEN 18 MG/DL (7-18); CALCIUM LEVEL 9.6 MG/DL (8.5-10.1); CARBON DIOXIDE LEVEL 35 MEQ/L (21-32); CHLORIDE LEVEL 99 MEQ/L (98-107); CREATININE FOR GFR 0.53 MG/DL (0.55-1.30); GLOMERULAR FILTRATION RATE > 60.0 (>51); GLUCOSE, FASTING 253 MG/DL (70-100); POTASSIUM SERUM 4.2 MEQ/L (3.5-5.1); SODIUM LEVEL 138 MEQ/L (136-145)
[2019-08-03] MEDS: cefTRIAXone SOD 1 GM in D5W MINI-BAG PLUS 50 ML IV SCH (07:46)
[2019-08-03] MEDS: HumaLOG INSULIN (NovoLOG) PER UNIT SC SCH ×4 (07:47→21:06)
[2019-08-03] MEDS: ALBUTEROL SULFATE 2.5 MG/0.5 ML INH NEB SOLN NEB PRN ×2 (08:04→13:24)
[2019-08-03] MEDS: MONTELUKAST 10 MG TAB PO SCH (09:33)
[2019-08-03] MEDS: DOXYCYCLINE HYCLATE 100 MG in D5W MINI-BAG PLUS 100 ML IV SCH ×2 (09:33→21:05)
[2019-08-03] MEDS: ATORVASTATIN 20 MG TAB PO SCH (09:33)
[2019-08-03] MEDS: LORATADINE 10 MG TAB PO SCH (09:33)
[2019-08-03] MEDS: HEPARIN SOD (PORCINE) 5000 UNITS/ML VIAL SC SCH ×2 (09:33→21:05)
[2019-08-03] MEDS: CYANOCOBALAMIN 500 MCG TAB PO SCH (09:33)
[2019-08-03] MEDS: EZETIMIBE 10 MG TAB (ZETIA) PO SCH (09:33)
[2019-08-03] MEDS: FLUoxetine 20 MG CAP PO SCH (09:34)
--- NOTE | 2019-08-03 11:17 | IPN ---
DATE: 08/02/2019 Leila is seen in [address] [place] [address] today with exacerbation of chronic obstructive pulmonary disease (COPD) from suspected left upper lobe pneumonia. She is feeling better than yesterday. Still short of breath, wheezing and coughing. PHYSICAL EXAMINATION: VITAL SIGNS: Stable blood pressure 107/50, pulse 70, respiratory rate 20, 95% oxygen saturation. GENERAL APPEARANCE: Alert, conversant, in no distress. LUNGS: Expiratory wheezes in all black. HEART: Regular rhythm. ABDOMEN: Soft. Nontender. EXTREMITIES: No peripheral edema. NEURO: Normal strength arms and legs. LABS: White count 12.9, hemoglobin 14.7, platelets 250. Sodium 131, potassium 4.6, BUN 11, creatinine 0.7, glucose 300. IMPRESSION: 1. Left-sided pneumonia: Patient is on IV doxycycline and Rocephin. Will increase the dose of the Rocephin to a therapeutic dose of 2 grams IV daily. Continue doxycycline. Continue empiric intravenous steroids and nebulizer bronchodilator. 2. Suspected cor pulmonale: She is on long-term diuretic therapy. Currently receiving IV fluids and diuretics, which is not rationale. Will stop the IV fluids and continue furosemide. 3. Diabetes: Hold her oral agent. Sliding scale insulin coverage while in the hospital. 4. History of depression. Continue her fluoxetine to avoid selective serotonin reuptake inhibitor (SSRI) withdrawal syndrome. 5. Hyperlipidemia: Continue her atorvastatin. ADVANCED DIRECTIVES: We discussed advanced directives. She does not have a medical orders for life-sustaining treatment (MOLST). Discussed this at length with her. At this point, she wants DO NOT RESUSCITATE, trial of noninvasive ventilation but no intubation. Trial of tube feeding but not long-term tube feeding. IV fluids and antibiotics are acceptable.
--- NOTE | 2019-08-03 12:00 | IPNPDOC ---
Subjective Date Seen The patient was seen on 08/03/19. Subjective Chief Complaint/HPI Patient lying in bed as we entered the room. She reports to be feeling about the same Constitutional: Denies: Chills, Fever Pulmonary: Reports: Dyspnea, Cough, Pleuritic Chest Pain, Other Symptoms (Spu nilson production ) Gastrointestinal: Denies: Nausea, Vomiting, Abdominal Pain Psych: Reports: Mood Normal Objective Physical Examination General Exam: Positive: Alert, Cooperative Eye Exam: Positive: PERRLA ENT Exam: Positive: Atraumatic, Mucous membr. moist/pink Neck Exam: Positive: Supple Chest Exam: Positive: Rhonchi, Wheezing Heart Exam: Positive: Rate Normal Telemetry: Positive: No significant arrhythmia Abdomen Exam: Positive: Normal bowel sounds Extremity Exam: Negative: Clubbing, Edema Skin Exam: Positive: Nl turgor and temperature Neuro Exam: Positive: Strength at 5/5 X4 ext Psych Exam: Positive: Mental status NL Assessment /Plan Problems (1) Respiratory failure with hypoxia and hypercapnia Status: Acute Problem Text: 08/03/19: Sputum culture positive with mycoplasma. She is currently on IV Doxycyline and Ceftriaxone. We will continue with Ceftriaxone for now. Afebrile. IV Methylprednisolone 60mg q 12 hours. Nebulizers Patient developed acute on chronic respiratory failure secondary to left-sided pneumonia Inhalers, incentive spirometry, IV steroids (2) Community acquired pneumonia Status: Acute Problem Text: 08/03/19: Continue with abx as discussed above. Chest x-ray: Left upper and left lower lobe pneumonia. Mycoplasma identified. If cultures are negative otherwise then change to just doxycyline at discharge. Doxycycline IV, ceftriaxone IV If patient not improve will proceed with CAT scan Incentive spirometry Blood culture, sputum culture Urine Legionella/Streptococcus antigen (3) Diabetes mellitus Onset Date: 05/07/2014 Status: Chronic Problem Text: 08/03/19: Remains on sliding scale. We will continue to monitor. We may need to adjust her basal insulin Insulin sliding scale Diabetes diet Plan/VTE VTE Prophylaxis Ordered?: Yes (Heparin ) VS, I&O, 24H, Fishbone Vital Signs/I&O Vital Signs Date Time Temp Pulse Resp B/P (MAP) Pulse Ox O2 Delivery O2 Flow Rate FiO2 08/03/19 06:00 97.8 64 18 101/55 (70) 95 4.0 08/02/19 04:14 Nasal Cannula I&O- Last 24 Hours up to 6 AM 08/03/19 05:59 Intake Total 560 ml Output Total 0 ml Balance 560 ml Laboratory Data 24H LABS Laboratory Tests 2 08/02/19 11:45: Bedside Glucose (Misc Panel) 503*H 08/02/19 17:10: Bedside Glucose (Misc Panel) 289H 08/02/19 22:13: Methicillin-Resist S.aureus DNA PCR NOT DETECTED 08/03/19 05:35: Nucleated Red Blood Cells % (auto) 0.0, Anion Gap 4L, Glomerular Filtration Rate > 60.0, Blood Urea Nitrogen 18#, Creatinine 0.53L, Sodium Level 138#, Potassium Level 4.2, Chloride Level 99, Carbon Dioxide Level 35H, Calcium Level 9.6 CBC/BMP Laboratory Tests 08/03/19 05:35 Red Blood Count 4.12, Mean Corpuscular Volume 101.2 H, Mean Corpuscular Hemoglobin 32.0, Mean Corpuscular Hemoglobin Concent 31.7 L, Red Cell Distribution Width 13.0, Calcium Level 9.6 Microbiology Microbiology 08/02/19 Blood Culture - Preliminary, Resulted No growth after 24 hours . All specim... 08/02/19 Blood Culture - Preliminary, Resulted No growth after 24 hours . All specim... 08/02/19 Gram Stain, Received Pending 08/02/19 Sputum Culture, Received Pending 08/02/19 Respiratory Virus Panel (PCR) (GURVINDER) - Final, Complete Mycoplasma Pneumoniae JJ DALEY Aug 03, 2019 12:00 Sloan Esquivel MD Aug 03, 2019 15:37
[2019-08-03 14:00] VITALS: BP 118/55
[2019-08-03] MEDS: guaiFENesin ER 600 MG TAB PO PRN (18:45)
[2019-08-03] MEDS: NORCO, ANEXSIA 5/325MG TABLET (HYDROcodone/ACETAMINOPHEN) PO PRN (18:46)
[2019-08-03] MEDS: LEVEMIR (INSULIN DETEMIR) 1 UNITS/0.01ML SC SCH (21:05)
[2019-08-03 22:00] VITALS: BP 103/51
[2019-08-04] MEDS: NS 1,000 ML IV SCH ×3 (01:36→19:32)
[2019-08-04] MEDS: IPRATROPIUM 0.02% SOLN 0.5MG/2.5 ML NEB INH SCH ×4 (02:00→20:43)
[2019-08-04] MEDS: methylPREDNISolone INJ 125 MG/2 ML VIAL (J2930) IV SCH ×2 (04:10→17:11)
[2019-08-04 06:00] VITALS: BP 101/56
[2019-08-04 08:21] VITALS: BP 118/61
[2019-08-04] MEDS: NORCO, ANEXSIA 5/325MG TABLET (HYDROcodone/ACETAMINOPHEN) PO PRN (08:48)
[2019-08-04] MEDS: HumaLOG INSULIN (NovoLOG) PER UNIT SC SCH ×4 (09:19→20:58)
[2019-08-04] MEDS: HEPARIN SOD (PORCINE) 5000 UNITS/ML VIAL SC SCH ×2 (09:20→21:17)
[2019-08-04] MEDS: cefTRIAXone SOD 1 GM in D5W MINI-BAG PLUS 50 ML IV SCH (09:20)
[2019-08-04] MEDS: CYANOCOBALAMIN 500 MCG TAB PO SCH (09:21)
[2019-08-04] MEDS: FLUoxetine 20 MG CAP PO SCH (09:22)
[2019-08-04] MEDS: EZETIMIBE 10 MG TAB (ZETIA) PO SCH (09:23)
[2019-08-04] MEDS: ATORVASTATIN 20 MG TAB PO SCH (09:23)
[2019-08-04] MEDS: guaiFENesin ER 600 MG TAB PO PRN (09:23)
[2019-08-04] MEDS: LORATADINE 10 MG TAB PO SCH (09:23)
--- NOTE | 2019-08-04 09:23 | IPNPDOC ---
Subjective Date Seen The patient was seen on 08/04/19. Subjective Chief Complaint/HPI Patient lying in bed as I entered the room. She reports to be feeling about the same Constitutional: Denies: Chills, Fever Pulmonary: Reports: Dyspnea, Cough, Pleuritic Chest Pain, Other Symptoms (Sputum production ) Cardiovascular: Denies: Palpitations Gastrointestinal: Denies: Nausea, Vomiting, Abdominal Pain Psych: Reports: Mood Normal Objective Physical Examination General Exam: Positive: Alert, Cooperative Eye Exam: Positive: PERRLA ENT Exam: Positive: Atraumatic, Mucous membr. moist/pink Neck Exam: Positive: Supple Chest Exam: Positive: Rhonchi, Wheezing Heart Exam: Positive: Rate Normal Telemetry: Positive: No significant arrhythmia Abdomen Exam: Positive: Normal bowel sounds Extremity Exam: Negative: Clubbing, Edema Skin Exam: Positive: Nl turgor and temperature Neuro Exam: Positive: Strength at 5/5 X4 ext Psych Exam: Positive: Mental status NL Assessment /Plan Problems (1) Respiratory failure with hypoxia and hypercapnia Status: Acute Problem Text: 08/04/19: Respiratory panel positive with mycoplasma. Day #2 of Doxycyline. WBC 15.7. Afebrile. IV Methylprednisolone 60mg q 12 hours. Nebulizers. She remains on O2 NC at 4L Patient developed acute on chronic respiratory failure secondary to left-sided pneumonia Inhalers, incentive spirometry, IV steroids (2) Community acquired pneumonia Status: Acute Problem Text: 08/04/19: Gram stain from sputum culture + Cocci in pairs. Continue with Ceftriaxone, Day#2, until culture results are returned 08/03/19: Continue with abx as discussed above. Chest x-ray: Left upper and left lower lobe pneumonia. Mycoplasma identified. If cultures are negative otherwise then change to just doxycyline at discharge. Doxycycline IV, ceftriaxone IV If patient not improve will proceed with CAT scan Incentive spirometry Blood culture, sputum culture Urine Legionella/Streptococcus antigen (3) Diabetes mellitus Onset Date: 05/07/2014 Status: Chronic Problem Text: 08/04/19: Increase basal insulin to 15 units. Continue with sliding scale coverage 08/03/19: Remains on sliding scale. We will continue to monitor. We may need to adjust her basal insulin Insulin sliding scale Diabetes diet Plan/VTE VTE Prophylaxis Ordered?: Yes (Heparin ) VS, I&O, 24H, Fishbone Vital Signs/I&O Vital Signs Date Time Temp Pulse Resp B/P (MAP) Pulse Ox O2 Delivery O2 Flow Rate FiO2 08/04/19 08:52 4.0 08/04/19 08:48 18 08/04/19 08:21 97.0 68 118/61 (80) 95 08/02/19 04:14 Nasal Cannula I&O- Last 24 Hours up to 6 AM 08/04/19 06:00 Intake Total 4300 ml Output Total 2250 ml Balance 2050 ml Laboratory Data 24H LABS Laboratory Tests 2 08/03/19 11:30: Bedside Glucose (Misc Panel) 386H 08/03/19 16:22: Bedside Glucose (Misc Panel) 305H 08/03/19 20:42: Bedside Glucose (Misc Panel) 513*H 08/03/19 20:46: Bedside Glucose (Misc Panel) 327H Microbiology Microbiology 08/02/19 Blood Culture - Preliminary, Resulted No Growth after 48 hours. All Specime... 08/02/19 Blood Culture - Preliminary, Resulted No Growth after 48 hours. All Specime... 08/02/19 Gram Stain - Final, Resulted 08/02/19 Sputum Culture, Resulted Pending 08/02/19 Respiratory Virus Panel (PCR) (GURVINDER) - Final, Complete Mycoplasma Pneumoniae JJ DALEY [employer] Aug 04, 2019 09:23
[2019-08-04] MEDS: DOXYCYCLINE HYCLATE 100 MG in D5W MINI-BAG PLUS 100 ML IV SCH ×2 (09:53→21:17)
[2019-08-04] MEDS: MONTELUKAST 10 MG TAB PO SCH (09:53)
[2019-08-04 14:00] VITALS: BP_SYST 107; BP_SYST 108; BP_DIAS 58; BP_DIAS 63
[2019-08-04] MEDS: LEVEMIR (INSULIN DETEMIR) 1 UNITS/0.01ML SC SCH (21:17)
[2019-08-04 22:00] VITALS: BP 115/59
[2019-08-05] MEDS: IPRATROPIUM 0.02% SOLN 0.5MG/2.5 ML NEB INH SCH ×4 (01:22→20:17)
[2019-08-05] MEDS: methylPREDNISolone INJ 125 MG/2 ML VIAL (J2930) IV SCH ×2 (04:10→17:25)
[2019-08-05] MEDS: NS 1,000 ML IV SCH ×2 (04:10→10:30)
[2019-08-05 06:00] VITALS: BP 114/56
[2019-08-05 08:00] VITALS: BP 110/76
[2019-08-05] MEDS: cefTRIAXone SOD 1 GM in D5W MINI-BAG PLUS 50 ML IV SCH (08:00)
[2019-08-05] MEDS: ALBUTEROL SULFATE 2.5 MG/0.5 ML INH NEB SOLN NEB PRN (08:32)
[2019-08-05 09:00] VITALS: BP 110/76
[2019-08-05] MEDS: DOXYCYCLINE HYCLATE 100 MG in D5W MINI-BAG PLUS 100 ML IV SCH ×2 (09:03→20:58)
[2019-08-05] MEDS: ATORVASTATIN 20 MG TAB PO SCH (09:04)
[2019-08-05] MEDS: HEPARIN SOD (PORCINE) 5000 UNITS/ML VIAL SC SCH ×2 (09:04→20:58)
[2019-08-05] MEDS: CYANOCOBALAMIN 500 MCG TAB PO SCH (09:04)
[2019-08-05] MEDS: FLUoxetine 20 MG CAP PO SCH (09:04)
--- NOTE | 2019-08-05 09:04 | IPNPDOC ---
Subjective Date Seen The patient was seen on 08/05/19. Subjective Chief Complaint/HPI The reports to be feeling a little better then yesterday. Not back to her baseline. No new concerns today Constitutional: Denies: Chills, Fever Pulmonary: Reports: Dyspnea, Cough, Pleuritic Chest Pain Cardiovascular: Denies: Palpitations, Edema Gastrointestinal: Denies: Nausea, Vomiting, Abdominal Pain Psych: Reports: Mood Normal Objective Physical Examination General Exam: Positive: Alert, Cooperative Eye Exam: Positive: PERRLA ENT Exam: Positive: Atraumatic, Mucous membr. moist/pink Neck Exam: Positive: Supple Chest Exam: Positive: Rhonchi (bilateral bases); Negative: Rales, Wheezing Heart Exam: Positive: Rate Normal Telemetry: Positive: No significant arrhythmia Abdomen Exam: Positive: Normal bowel sounds Extremity Exam: Negative: Clubbing, Edema Skin Exam: Positive: Nl turgor and temperature Neuro Exam: Positive: Strength at 5/5 X4 ext Psych Exam: Positive: Mental status NL Assessment /Plan Problems (1) Respiratory failure with hypoxia and hypercapnia Status: Acute Problem Text: 08/05/19: BC negative. Shes afebrile. We continue to await results from sputum culture. Day #3 of Doxycyline. Continue with Methylprednisolone. She is down to 3L O2 via nasal cannula. Her home O2 requirements are 2L. We could probably transition her to prednisone PO tomorrow. D/C Ceftriaxone, sputum culture normal mirta 08/04/19: Respiratory panel positive with mycoplasma. Day #2 of Doxycyline. WBC 1 5.7. Afebrile. IV Methylprednisolone 60mg q 12 hours. Nebulizers. She remains on O2 NC at 4L Patient developed acute on chronic respiratory failure secondary to left-sided pneumonia Inhalers, incentive spirometry, IV steroids (2) Community acquired pneumonia Status: Acute Problem Text: 08/05/19: Sputum culture with normal mirta. We will stop Ceftriaxone. Continue with Doxycyline 08/04/19: Gram stain from sputum culture + Cocci in pairs. Continue with Ceftriaxone, Day#2, until culture results are returned 08/03/19: Continue with abx as discussed above. Chest x-ray: Left upper and left lower lobe pneumonia. Mycoplasma identified. If cultures are negative otherwise then change to just doxycyline at discharge. Doxycycline IV, ceftriaxone IV If patient not improve will proceed with CAT scan Incentive spirometry Blood culture, sputum culture Urine Legionella/Streptococcus antigen (3) Diabetes mellitus Onset Date: 05/07/2014 Status: Chronic Problem Text: 08/05/19: BGs 153 this morning 08/04/19: Increase basal insulin to 15 units. Continue with sliding scale coverage 08/03/19: Remains on sliding scale. We will continue to monitor. We may need to adjust her basal insulin Insulin sliding scale Diabetes diet Plan/VTE VTE Prophylaxis Ordered?: Yes (Heparin ) VS, I&O, 24H, Fishbone Vital Signs/I&O Vital Signs Date Time Temp Pulse Resp B/P (MAP) Pulse Ox O2 Delivery O2 Flow Rate FiO2 08/05/19 08:33 Nasal Cannula 3.0 08/05/19 08:00 98.6 65 20 110/76 92 I&O- Last 24 Hours up to 6 AM 08/05/19 06:00 Intake Total 4280 ml Output Total 2050 ml Balance 2230 ml Laboratory Data 24H LABS Laboratory Tests 2 08/04/19 11:33: Bedside Glucose (Misc Panel) 330H 08/04/19 16:30: Bedside Glucose (Misc Panel) 235H 08/04/19 20:26: Bedside Glucose (Misc Panel) 174H 08/05/19 06:21: Bedside Glucose (Misc Panel) 153H Microbiology Microbiology 08/02/19 Blood Culture - Preliminary, Resulted No Growth after 72 hours. All specime... 08/02/19 Blood Culture - Preliminary, Resulted No Growth after 72 hours. All specime... 08/02/19 Gram Stain - Final, Resulted 08/02/19 Sputum Culture, Resulted Pending 08/02/19 Respiratory Virus Panel (PCR) (GURVINDER) - Final, Complete Mycoplasma Pneumoniae JJ DALEY Aug 05, 2019 09:04
[2019-08-05] MEDS: LORATADINE 10 MG TAB PO SCH (09:05)
[2019-08-05] MEDS: EZETIMIBE 10 MG TAB (ZETIA) PO SCH (09:05)
[2019-08-05] MEDS: MONTELUKAST 10 MG TAB PO SCH (09:05)
[2019-08-05] MEDS: HumaLOG INSULIN (NovoLOG) PER UNIT SC SCH ×4 (09:25→20:59)
[2019-08-05] MEDS: guaiFENesin ER 600 MG TAB PO PRN (09:32)
[2019-08-05] MEDS: NORCO, ANEXSIA 5/325MG TABLET (HYDROcodone/ACETAMINOPHEN) PO PRN ×2 (09:33→20:59)
[2019-08-05 10:59] LABS: HEMATOCRIT 38.9 % (36.0-47.0); HEMOGLOBIN 11.9 g/dl (12.0-15.5); MEAN CORPUSCULAR HGB CONC 30.6 g/dl (32.0-36.5); MEAN CORPUSCULAR VOLUME 101.3 fl (80.0-96.0); PLATELET COUNT, AUTOMATED 314 10^3/uL (150-450); RED BLOOD COUNT 3.84 10^6/uL (4.00-5.40); WHITE BLOOD COUNT 15.6 10^3/uL (4.0-10.0)
[2019-08-05 11:26] LABS: BLOOD UREA NITROGEN 13 MG/DL (7-18); CALCIUM LEVEL 9.4 MG/DL (8.5-10.1); CARBON DIOXIDE LEVEL 34 MEQ/L (21-32); CHLORIDE LEVEL 102 MEQ/L (98-107); CREATININE FOR GFR 0.51 MG/DL (0.55-1.30); GLOMERULAR FILTRATION RATE > 60.0 (>51); GLUCOSE, FASTING 291 MG/DL (70-100); POTASSIUM SERUM 4.2 MEQ/L (3.5-5.1); SODIUM LEVEL 140 MEQ/L (136-145)
[2019-08-05 11:54] LABS: ANISOCYTOSIS 1+; ATYPICAL LYMPH 1 % (0-5); LYMPHOCYTES 6 % (16-44); METAMYELOCYTES 1 % (0-0); MONOCYTES 3 % (0-5); MYELOCYTES 1 % (0-0); NEUTROPHILS 82 % (28-66); PLATELET ESTIMATE NORMAL (NORMAL)
[2019-08-05 14:00] VITALS: BP 126/55
[2019-08-05] MEDS: LEVEMIR (INSULIN DETEMIR) 1 UNITS/0.01ML SC SCH (20:57)
[2019-08-05 22:00] VITALS: BP 128/57
[2019-08-06] MEDS: IPRATROPIUM 0.02% SOLN 0.5MG/2.5 ML NEB INH SCH ×2 (01:06→08:38)
[2019-08-06] MEDS: methylPREDNISolone INJ 125 MG/2 ML VIAL (J2930) IV SCH (04:56)
[2019-08-06 06:00] VITALS: BP 135/62
[2019-08-06 06:41] LABS: HEMATOCRIT 38.8 % (36.0-47.0); HEMOGLOBIN 12.2 g/dl (12.0-15.5); MEAN CORPUSCULAR HEMOGLOBIN 31.7 pg (27.0-33.0); MEAN CORPUSCULAR HGB CONC 31.4 g/dl (32.0-36.5); MEAN CORPUSCULAR VOLUME 100.8 fl (80.0-96.0); PLATELET COUNT, AUTOMATED 333 10^3/uL (150-450); RED BLOOD COUNT 3.85 10^6/uL (4.00-5.40); WHITE BLOOD COUNT 13.7 10^3/uL (4.0-10.0)
[2019-08-06 07:05] LABS: BLOOD UREA NITROGEN 11 MG/DL (7-18); CALCIUM LEVEL 9.2 MG/DL (8.5-10.1); CARBON DIOXIDE LEVEL 40 MEQ/L (21-32); CHLORIDE LEVEL 98 MEQ/L (98-107); CREATININE FOR GFR 0.41 MG/DL (0.55-1.30); GLOMERULAR FILTRATION RATE > 60.0 (>51); GLUCOSE, FASTING 214 MG/DL (70-100); SODIUM LEVEL 140 MEQ/L (136-145)
[2019-08-06 07:09] LABS: LYMPHOCYTES 10 % (16-44); METAMYELOCYTES 1 % (0-0); MONOCYTES 1 % (0-5); MYELOCYTES 1 % (0-0); NEUTROPHILS 85 % (28-66)
[2019-08-06 07:10] LABS: PLATELET ESTIMATE NORMAL (NORMAL)
[2019-08-06] MEDS: HumaLOG INSULIN (NovoLOG) PER UNIT SC SCH ×2 (07:36→12:03)
[2019-08-06 08:00] VITALS: BP 134/68
[2019-08-06 08:30] VITALS: BP 134/72
[2019-08-06] MEDS ORDERED: PRED20TA PO (08:51)
[2019-08-06] MEDS ORDERED: DOXY100T PO (08:51)
[2019-08-06] MEDS ORDERED: DOXYCYCLINE HYCLATE 100 MG TAB PO SCH (09:00)
[2019-08-06] MEDS: HEPARIN SOD (PORCINE) 5000 UNITS/ML VIAL SC SCH (09:25)
[2019-08-06] MEDS: ATORVASTATIN 20 MG TAB PO SCH (09:26)
[2019-08-06] MEDS: FLUoxetine 20 MG CAP PO SCH (09:26)
[2019-08-06] MEDS: EZETIMIBE 10 MG TAB (ZETIA) PO SCH (09:27)
[2019-08-06] MEDS: LORATADINE 10 MG TAB PO SCH (09:27)
[2019-08-06] MEDS: MONTELUKAST 10 MG TAB PO SCH (09:27)
[2019-08-06] MEDS: CYANOCOBALAMIN 500 MCG TAB PO SCH (09:27)
--- NOTE | 2019-08-07 16:29 | DS.PDOC ---
Discharge Summary General Date of Admission Aug 02, 2019 at 06:47 Date of Discharge Jul Primary Care Physician: Abhishek Raymond M.D. Attending Physician: Sloan Esquivel MD Discharge Summary PROCEDURES PERFORMED DURING STAY:None ADMITTING DIAGNOSES: 1. Respiratory failure with hypoxia and hypercapnia 2. Community acquired pneumonia 3. Diabetes mellitus DISCHARGE DIAGNOSES: 1. Respiratory failure with hypoxia and hypercapnia 2. Community acquired pneumonia 3. Diabetes mellitus COMPLICATIONS/CHIEF COMPLAINT: Cap, Resp Failure W Hypoxia And Hypercapnia. HISTORY OF PRESENT ILLNESS: 58 years old female with past mental history of COPD, emphysema, on 2 L oxygen at home, diabetes, hyperlipidemia presented hospital with cough, pleuritic chest pain, hypoxia with oxygenation on the room air around 70. Patient stated that for past 4 days she has been having shortness of breath, increased sputum production with yellowish color, fatigue and chills. In emergency room patient was found to have fever of 100.3, white blood count was 12.9, lactic acid 1.4, glucose of 301. Chest x-ray showed left lower and middle lobe consolidation. Patient received 1 dose of imipenem in the emergency. HOSPITAL COURSE: Patient was admitted for further management of her respiratory failure and pneumonia. She was treated with nebulizers, steroids, O2 and initially started on Doxycycline and Ceftriaxone. Her respiratory panel was positive for mycoplasma. Her sputum culture was negative, only normal mirta. Once her sputum culture returned as normal mirta only her Ceftriaxone was discontinued and Doxycycline was continued. Patient was feeling much improved on day 4 and ready for discharge DISCHARGE MEDICATIONS: Please see below. ALLERGIES: Please see below. PHYSICAL EXAMINATION ON DISCHARGE: VITAL SIGNS: Please see below. GENERAL: AOx3, in NAD HEENT: unremarkable NECK: soft, supple CARDIOVASCULAR EXAMINATION: RRR RESPIRATORY EXAMINATION: diminished without wheezing or rhonchi ABDOMINAL EXAMINATION: soft, non-distended, non-tender EXTREMITIES: no edema LABORATORY DATA: Please see below. IMAGING: Chest X-ray: IMPRESSION: Left upper and left lower lobe pneumonia. PROGNOSIS: Good ACTIVITY: As tolerated DIET: Consistent Carb DISCHARGE PLAN: Home DISPOSITION: 01 Home, Self-Care. DISCHARGE INSTRUCTIONS: 1. With PCP in one week Vital Signs/I&Os Vital Signs Date Time Temp Pulse Resp B/P (MAP) Pulse Ox O2 Delivery O2 Flow Rate FiO2 08/06/19 11:53 3.0 9/19/19 08:38 Nasal Cannula 08/06/19 08:30 97.9 52 18 134/72 92 I&O- Last 24 Hours up to 6 AM 08/07/19 06:00 Intake Total 625 ml Output Total 725 ml Balance -100 ml Microbiology Microbiology 08/02/19 Blood Culture - Final, Complete NO GROWTH AFTER 5 DAYS 08/02/19 Blood Culture - Final, Complete NO GROWTH AFTER 5 DAYS 08/02/19 Gram Stain - Final, Complete 08/02/19 Sputum Culture - Final, Complete 08/02/19 Respiratory Virus Panel (PCR) (GURVINDER) - Final, Complete Mycoplasma Pneumoniae Discharge Medications Scheduled Alogliptin Benzoate (Alogliptin) 25 Mg Tab, 25 MG PO DAILY, (Reported) Atorvastatin Calcium (Atorvastatin Calcium) 80 Mg Tab, 80 MG PO DAILY, (Reported) Cyanocobalamin (Vitamin B-12) (Vitamin B-12) 1,000 Mcg Tab, 1,000 MCG PO DAILY, (Reported) Doxycycline Hyclate (Doxycycline Hyclate) 100 Mg Tablet, 100 MG PO BID Ergocalciferol (Vitamin D2) (Drisdol) 50,000 Unit Cap, 50,000 UNIT PO QMONTH, (Reported) FIRST OF THE MONTH Ezetimibe (Zetia) 10 Mg Tab, 10 MG PO DAILY, (Reported) Fluoxetine Hcl (Fluoxetine HCl) 20 Mg Cap, 60 MG PO QAM, (Reported) Furosemide (Furosemide) 20 Mg Tab, 20 MG PO DAILY, (Reported) Glimepiride (Glimepiride) 4 Mg Tab, 4 MG PO BID, (Reported) Ipratropium [place] (Atrovent Hfa) 17 Mcg/Act Aer, 2 PUFFS INH Q6H, (Reported) Lansoprazole (Lansoprazole) 30 Mg Capsule.dr, 30 MG PO DAILY, (Reported) Loratadine (Claritin) 10 Mg Cap, 10 MG PO DAILY, (Reported) Metformin HCl (Metformin HCl) 1,000 Mg Tab, 1,000 MG PO BIDWM, (Reported) Montelukast Sodium (Montelukast Sodium) 10 Mg Tab, 10 MG PO DAILY, (Reported) Prednisone (Prednisone) 20 Mg Tablet, 20 MG PO DAILY Taper dose: Take 3 tabs po x 3 days, 2 tabs po x 3 days, 1 tab po x 3 days, 1/2 tab po x 3 days Scheduled PRN Albuterol Sulf (Albuterol Sulfate) 2.5 Mg/3 Ml Nebu, 1 VIAL NEB QID PRN for SHORTNESS OF BREATH, (Reported) Albuterol Sulfate (Proventil Hfa) 108 Mcg/Act Aer, 2 PUFFS INH Q4H PRN for SHORTNESS OF BREATH, (Reported) Guaifenesin (Mucinex) 600 Mg Tab.er.12h, 1,200 MG PO BID PRN for CONGESTION, (Reported) Hydrocodone/Acetaminophen (Volcano 5-325 Tablet) 1 Each Tablet, 1 TAB PO TID PRN for PAIN, (Reported) Naproxen Sodium (Aleve) 220 Mg Capsule, 440 MG PO Q12H PRN for PAIN, (Reported) Polyethylene Glycol 3350 (Miralax) 1 Pow Pow, 17 GM PO DAILY PRN for CONSTIPATION, (Reported) Allergies Coded Allergies: Mushroom (Verified Allergy, Unknown, 06/28/13) Protein Milk (Unverified Allergy, Unknown, 08/02/19) moxifloxacin (Verified Allergy, Unknown, 08/02/19) codeine (Verified Adverse Reaction, Mild, VOMITING / VERTIGO, 08/02/19) amoxicillin (Verified Adverse Reaction, Unknown, NAUSEA / VOMITING, 08/02/19) budesonide (Verified Adverse Reaction, Unknown, JITTERY, 08/02/19) clavulanic acid (Verified Adverse Reaction, Unknown, NAUSEA / VOMITING, 08/02/19) fluticasone (Verified Adverse Reaction, Unknown, JITTERY, 08/02/19) formoterol (Verified Adverse Reaction, Unknown, JITTERY, 08/02/19) mometasone furoate (Verified Adverse Reaction, Unknown, NAUSEA / VOMITING, 08/02/19) salmeterol (Verified Adverse Reaction, Unknown, JITTERY, 08/02/19) JJ DALEY Aug 07, 2019 16:29
[2019-08-18] MEDS ORDERED: VITAMIN D 50,000 UNITS CAPSULE (ERGOCALCIFEROL 1.25MG) PO SCH (09:00)
== END 2019-08-06 12:05 | disposition home or self-care (01) | DRG 139 ==
LOC: M ED 04:05 → M ED INP 06:47 → M MSPAV 08:30
PROVIDERS: ADMIT Internal Medicine; ATTEND Family Medicine
DX: J18.9 Pneumonia, unspecified organism (principal); J96.21 Acute and chronic respiratory failure with hypoxia; Z99.81 Dependence on supplemental oxygen; J96.22 Acute and chronic respiratory failure with hypercapnia; J44.0 Chronic obstructive pulmonary disease with (acute) lower respiratory infection; E11.9 Type 2 diabetes mellitus without complications; F32.9 Major depressive disorder, single episode, unspecified; E78.5 Hyperlipidemia, unspecified; Z66 Do not resuscitate; Z79.84 Long term (current) use of oral hypoglycemic drugs; Z79.899 Other long term (current) drug therapy; Z88.0 Allergy status to penicillin; Z88.1 Allergy status to other antibiotic agents; Z88.5 Allergy status to narcotic agent; Z88.8 Allergy status to other drugs, medicaments and biological substances; Z91.011 Allergy to milk products; Z91.018 Allergy to other foods; Z87.891 Personal history of nicotine dependence

== ENCOUNTER 2019-08-08 08:15 | Observation (INO) | payer OTHER ==
[~2019-08-08 08:15] MED LIST changes: +DOXY100T PO; +IBUP-1764 PO; +LANS30CA PO; +MUCI600T31 PO; +NAPR220C14 PO; +NORC1TAB7 PO; +PRED20TA PO
--- NOTE | 2019-08-08 09:33 | REP ---
CT BRAIN WITHOUT IV CONTRAST: CT brain performed without IV contrast and compared to prior study of 11/14/2018. There is very mild atrophy. There is no midline shift or mass effect. Celis/white differentiation is well maintained. There is no acute intracranial hemorrhage or extra-axial fluid collection. Bone window examination is unremarkable. IMPRESSION: Negative noncontrast CT brain. Electronically Signed by Aguilar Celis MD 08/09/2019 05:48 P
[2019-08-08] MEDS ORDERED: levETIRAcetam INJection 1,000 MG in D5W 100 ML IV ONE (09:45)
[2019-08-08 10:07] LABS: HEMATOCRIT 42.3 % (36.0-47.0); HEMOGLOBIN 13.4 g/dl (12.0-15.5); MEAN CORPUSCULAR HGB CONC 31.7 g/dl (32.0-36.5); MEAN CORPUSCULAR VOLUME 97.9 fl (80.0-96.0); PLATELET COUNT, AUTOMATED 477 10^3/uL (150-450); RED BLOOD COUNT 4.32 10^6/uL (4.00-5.40)
--- NOTE | 2019-08-08 10:09 | REP ---
PORTABLE CHEST: AP portable view of the chest is performed and compared to prior study of 08/02/2019. Previously noted diffuse left lung infiltrates have improved with residual infiltrates still present both superiorly and inferiorly. No infiltrate is seen in the right lung. Cardiac silhouette is mildly prominent. There is calcification of the thoracic aorta. IMPRESSION: Improved but not resolved left lung infiltrates. Electronically Signed by Aguilar Celis MD 08/09/2019 05:49 P
[2019-08-08 10:18] LABS: OSMOLALITY SERUM 302 MOSM/KG (275-295)
[2019-08-08 10:26] LABS: ALBUMIN 3.1 GM/DL (3.2-5.2); ALT/SGPT 52 U/L (12-78); BILIRUBIN,DIRECT 0.2 MG/DL (0.0-0.2); BILIRUBIN,TOTAL 0.7 MG/DL (0.2-1.0); BLOOD UREA NITROGEN 9 MG/DL (7-18); C REACTIVE PROTEIN QUANTITATIV 1.33 MG/DL (0.00-0.30); CALCIUM LEVEL 9.1 MG/DL (8.5-10.1); CARBON DIOXIDE LEVEL 42 MEQ/L (21-32); CHLORIDE LEVEL 91 MEQ/L (98-107); CK-MB VALUE MASS < 1.0 NG/ML (<3.6); CPK CREATINE PHOSPHOKINASE 46 U/L (26-192); CREATININE FOR GFR 0.48 MG/DL (0.55-1.30); ETHYL ALCOHOL (ETHANOL) < 0.003 % (0.000-0.010); GLOMERULAR FILTRATION RATE > 60.0 (>51); GLUCOSE, FASTING 280 MG/DL (70-100); MAGNESIUM LEVEL 1.9 MG/DL (1.8-2.4); MB/CK RELATIVE INDEX 2.17 (< OR =4); POTASSIUM SERUM 3.8 MEQ/L (3.5-5.1); SODIUM LEVEL 139 MEQ/L (136-145); THYROID STIMULATING HORMONE 0.846 uIU/ML (0.358-3.740); TOTAL PROTEIN 6.3 GM/DL (6.4-8.2); TROPONIN I < 0.02 NG/ML (< 0.10)
[2019-08-08 10:33] LABS: ERYTHROCYTE SEDIMENTATION RATE 23 mm/hr (0-30)
[2019-08-08] MEDS ORDERED: PRED20TA PO (10:33)
[2019-08-08] MEDS ORDERED: DOXY100T PO (10:33)
[2019-08-08 10:38] LABS: ANISOCYTOSIS 1+; ATYPICAL LYMPH 3 % (0-5); LYMPHOCYTES 14 % (16-44); METAMYELOCYTES 1 % (0-0); MONOCYTES 4 % (0-5); MYELOCYTES 2 % (0-0); NEUTROPHILS 75 % (28-66); PLATELET ESTIMATE INCREASED (NORMAL)
[2019-08-08 12:06] LABS: AMPHETAMINES LEVEL URINE NEGATIVE (NEGATIVE); BARBITURATES URINE NEGATIVE (NEGATIVE); BENZODIAZEPINES URINE NEGATIVE (NEGATIVE); CANNABINOIDS URINE NEGATIVE (NEGATIVE); COCAINE METABOLITE URINE NEGATIVE (NEGATIVE); METHADONE URINE NEGATIVE (NEGATIVE); OPIATES URINE NEGATIVE (NEGATIVE); PHENCYCLIDINE URINE NEGATIVE (NEGATIVE)
[2019-08-08] MEDS ORDERED: NORCO, ANEXSIA 5/325MG TABLET (HYDROcodone/ACETAMINOPHEN) PO PRN (13:45)
[2019-08-08] MEDS ORDERED: ACETAMINOPHEN TAB 650MG DOSE (2X325MG) PO PRN (13:45)
[2019-08-08] MEDS ORDERED: DEXTROSE 50% 50 ML SYRINGE IV PRN (13:45)
[2019-08-08] MEDS ORDERED: MOM 30ML SUSPENSION UDC PO PRN (13:45)
[2019-08-08] MEDS ORDERED: MIRALAX *UNIT DOSE* 17GM PACKET PO PRN (13:45)
[2019-08-08] MEDS ORDERED: GLUCAGON FOR INJ 1 MG VIAL (J1610) SC PRN (13:45)
[2019-08-08] MEDS ORDERED: guaiFENesin ER 600 MG TAB PO PRN (13:45)
[2019-08-08] MEDS ORDERED: MAALOX 30 ML SUSP *UDC PO PRN (13:45)
[2019-08-08] MEDS ORDERED: GLUCOSE 4 GM CHEW TABLET PO PRN (13:45)
--- NOTE | 2019-08-08 13:47 | HPEPDOC ---
General Date of Admission 08/08/19 Date of Service: Aug 08, 2019 Primary Care Physician: Abhishek Raymond M.D. Attending Physician: Abhishek Raymond M.D. Chief Complaint The patient is a 58-year-old female admitted with a reason for visit of Headache. Source: Family, RN/MD Exam Limitations: Clinical conditions Timing/Duration: Other (this morning) Severity: Mild Associated Symptoms: Headaches History of Present Illness 58 years old white female who was recently discharged from this hospital on August 02 after she was treated for respiratory failure with hypoxia and hypercapnia secondary to COPD. Patient this time presented with multiple complaints including regular with sudden onset of severe headache with nausea, difficulty with vision, photophobia, as per patient's son's they hadn't. The family yesterday and she has been very upset. Patient has multiple complaints which does not do not coincide with her physical examination, patient not responding to me when asking questions. Questions were answered by her both sounds at the bedside. She has a vague paper towel over her eyes, as per son's now she is unable to see. Home Medications Scheduled Alogliptin Benzoate (Alogliptin) 25 Mg Tab, 25 MG PO DAILY, (Reported) Atorvastatin Calcium (Atorvastatin Calcium) 80 Mg Tab, 80 MG PO DAILY, (Reported) Cyanocobalamin (Vitamin B-12) (Vitamin B-12) 1,000 Mcg Tab, 1,000 MCG PO DAILY, (Reported) Doxycycline Hyclate (Doxycycline Hyclate) 100 Mg Tablet, 100 MG PO BID, (Reporte d) FILLED 08/06/19 FOR 6 DAYS Ergocalciferol (Vitamin D2) (Drisdol) 50,000 Unit Cap, 50,000 UNIT PO QMONTH, (Reported) FIRST OF THE MONTH Ezetimibe (Zetia) 10 Mg Tab, 10 MG PO DAILY, (Reported) Fluoxetine Hcl (Fluoxetine HCl) 20 Mg Cap, 60 MG PO QAM, (Reported) Furosemide (Furosemide) 20 Mg Tab, 20 MG PO DAILY, (Reported) Glimepiride (Glimepiride) 4 Mg Tab, 4 MG PO BID, (Reported) Ipratropium [place] (Atrovent Hfa) 17 Mcg/Act Aer, 2 PUFFS INH Q6H, (Reported) Lansoprazole (Lansoprazole) 30 Mg Capsule.dr 30 MG PO DAILY, (Reported) Loratadine (Claritin) 10 Mg Cap, 10 MG PO DAILY, (Reported) Metformin HCl (Metformin HCl) 1,000 Mg Tab, 1,000 MG PO BIDWM, (Reported) Montelukast Sodium (Montelukast Sodium) 10 Mg Tab, 10 MG PO DAILY, (Reported) Prednisone (Prednisone) 20 Mg Tablet, 20 MG PO ASDIRECTED, (Reported) TAPER DOSE STARTED 08/06/19 - 60MG DAILY FOR 3 DAYS, 40MG DAILY FOR 3 DAYS, 20MG DAILY FOR 3 DAYS, 10MG DAILY FOR 3 DAYS, THEN STOP Scheduled PRN Albuterol Sulf (Albuterol Sulfate) 2.5 Mg/3 Ml Nebu, 1 VIAL NEB QID PRN for SHORTNESS OF BREATH, (Reported) Albuterol Sulfate (Proventil Hfa) 108 Mcg/Act Aer, 2 PUFFS INH Q4H PRN for SHORTNESS OF BREATH, (Reported) Guaifenesin (Mucinex) 600 Mg Tab.er.12h, 1,200 MG PO BID PRN for CONGESTION, (Reported) Hydrocodone/Acetaminophen ([place]ow 5-325 Tablet) 1 Each Tablet, 1 TAB PO TID PRN for PAIN, (Reported) Naproxen Sodium (Aleve) 220 Mg Capsule, 440 MG PO Q12H PRN for PAIN, (Reported) Polyethylene Glycol 3350 (Miralax) 1 Pow Pow, 17 GM PO DAILY PRN for CONSTIPATION, (Reported) Allergies Coded Allergies: Mushroom (Verified Allergy, Unknown, 06/28/13) Protein Milk (Unverified Allergy, Unknown, 08/02/19) moxifloxacin (Verified Allergy, Unknown, 08/02/19) amoxicillin (Verified Adverse Reaction, Mild, NAUSEA / VOMITING, 08/08/19) budesonide (Verified Adverse Reaction, Mild, JITTERY, 08/08/19) clavulanic acid (Verified Adverse Reaction, Mild, NAUSEA / VOMITING, 08/08/19) codeine (Verified Adverse Reaction, Mild, VOMITING / VERTIGO, 08/02/19) fluticasone (Verified Adverse Reaction, Mild, JITTERY, 08/08/19) formoterol (Verified Adverse Reaction, Mild, JITTERY, 08/08/19) mometasone furoate (Verified Adverse Reaction, Mild, NAUSEA / VOMITING, 08/08/19) salmeterol (Verified Adverse Reaction, Mild, JITTERY, 08/08/19) Past Medical History Medical History Advanced COPD with home oxygen, diabetes mellitus, not on insulin, emphysema, hyperlipidemia, obesity Surgical History Cholecystectomy, 3 C-sections Family History Significant Family History: Other (. Mother had hypertension for of. Father of heart attack. Sister had COPD) Social History * Smoker: former Smoker, quit greater than 1 year Alcohol: Denies Drugs: denies A-FIB/CHADSVASC A-FIB History Current/History of A-Fib/PAF?: No Review of Systems Constitutional: Reports: Other (, unable to obtained review of systems secondary to medications mental status) Physical Examination General Exam: Positive: Other (awake but does not respond to questions) Eye Exam: Positive: Other Eye Symptoms ENT Exam: Positive: Other ENT (and examined and able to examine) Neck Exam: Positive: Supple Chest Exam: Positive: Clear to auscultation, Normal air movement Heart Exam: Positive: Rate Normal, Normal S1 Abdomen Exam: Positive: Normal bowel sounds, Soft Extremity Exam: Positive: Normal pulses Skin Exam: Positive: Nl turgor and temperature Neuro Exam: Positive: Other (unable to perform neuro exam but moves all extremities) Psych Exam: Positive: Other (. Unable to do psych exam) Vital Signs Vital Signs Date Time Temp Pulse Resp B/P (MAP) Pulse Ox O2 Delivery O2 Flow Rate FiO2 08/08/19 13:03 71 18 96 Nasal Cannula 4.0 08/08/19 13:00 130/67 (88) 08/08/19 11:33 40 08/08/19 08:17 97.6 Laboratory Data Labs 24H Laboratory Tests 2 08/08/19 09:01: POC pH (Misc Panel) 7.323L, POC Base Excess (Misc Panel) 22.0H, POC Saturated Percent O2 (Misc) 84L, POC pO2 (Misc Panel) 57.0L, POC pCO2 (Misc Panel) 92.2*H, POC HCO3 (Misc Panel) 47.9H, POC Total CO2 (Misc Panel) > 50.0H 08/08/19 09:02: Bedside Glucose (Misc Panel) 294H 08/08/19 09:20: POC Total CO2 (Misc Panel) 45.0H, POC Glucose (Misc Panel) 304H, POC Sodium (Misc Panel) 137, POC Potassium (Misc Panel) 3.6, POC Chloride (Misc Panel) 87L, POC Blood Urea Nitrogen (Misc Panel 8, POC Ionized Calcium (Misc Panel) 4.6, POC Creatinine (Misc Panel) 0.5L, POC Hematocrit (Misc Panel) 42.0 08/08/19 09:21: Immature Granulocyte % (Auto) , Nucleated Red Blood Cells % (auto) 0.0, Neutrophils 75H, Band Neutrophils 1, Lymphocytes (Manual) 14L, Monocytes (Manual) 4, Metamyelocytes 1H, Myelocytes 2H, Atypical Lymphocytes 3, Platelet Estimate INCREASED, Anisocytosis 1+, Macrocytosis 1+, Erythrocyte Sedimentation Rate 23, Anion Gap 6L, Glomerular Filtration Rate > 60.0, Osmolality 302H, Lactic Acid Level 1.0, Calcium Level 9.1, Magnesium Level 1.9, Aspartate Amino Transf (AST/SGOT) 22, Alanine Aminotransferase (ALT/SGPT) 52, Alkaline Phosphatase 134H, Total Bilirubin 0.7, Direct Bilirubin 0.2, Ammonia 42H, Total Creatine Kinase 46, Creatine Kinase MB < 1.0, Creatine Kinase MB Relative Index 2.17, Troponin I < 0.02, C-Reactive Protein, Quantitative 1.33H, Total Protein 6.3L, Albumin 3.1L, Albumin/Globulin Ratio 0.97L, Thyroid Stimulating Hormone (TSH) 0.846, Ethyl Alcohol Level < 0.003 08/08/19 10:13: POC pH (Misc Panel) 7.284L, POC Base Excess (Misc Panel) 19.0H, POC Saturated Percent O2 (Misc) 99H, POC pO2 (Misc Panel) 153.0H, POC pCO2 (Misc Panel) 96.7*H, POC HCO3 (Misc Panel) 45.9H, POC Total CO2 (Misc Panel) 49.0H 08/08/19 10:37: 08/08/19 11:14: Urine Amphetamines Screen NEGATIVE, Urine Benzodiazepines Screen NEGATIVE, Urine Opiates Screen NEGATIVE, Urine Methadone Screen NEGATIVE, Urine Barbiturates Screen NEGATIVE, Urine Phencyclidine Screen NEGATIVE, Urine Cocaine Metabolite Screen NEGATIVE, Urine Cannabinoids Screen NEGATIVE 08/08/19 11:36: POC pH (Misc Panel) 7.383, POC Base Excess (Misc Panel) 20.0H, POC Saturated Percent O2 (Misc) 89L, POC pO2 (Misc Panel) 61.0L, POC pCO2 (Misc Panel) 75.0*H, POC HCO3 (Misc Panel) 44.7H, POC Total CO2 (Misc Panel) 47.0H CBC/BMP Laboratory Tests 08/08/19 09:21 Red Blood Count 4.32, Mean Corpuscular Volume 97.9 H, Mean Corpuscular Hemoglobin 31.0, Mean Corpuscular Hemoglobin Concent 31.7 L, Red Cell Distribution Width 12.8 Microbiology Microbiology 08/08/19 Blood Culture, Received Pending 08/08/19 Blood Culture, Received Pending 08/08/19 Respiratory Virus Panel (PCR) ([facility]) - Final, Complete Problems (1) Altered mental state Status: Acute Problem Text: 58 years old white female with past medical history of depression, COPD on home oxygen, diabetes mellitus, emphysema, hyperlipidemia presented with multiple ragged complaints which do not coincide with her physical examination at different times. She response different people and the situation changes in a few seconds at variable rate. Altered mental state could be secondary to seizure disorder versus malingering for secondary gain CT head is essentially within normal limits Chest x-ray is within normal limits MRI is done but report is pending Neurology consult with Dr. Toro was called from ED Will admit patient under TO PCU Seizure precaution Continue Keppra Etiology home meds Aggressive blood sugar every before meals and at bedtime with coverage DVT prophylaxis with Lovenox Activity out of bed to bathroom Will sign out patient to family practice in a.m. (2) HTN (hypertension) Status: Chronic Problem Text: Patient. Blood pressure under well control Opinion home meds (3) Chronic obstructive airway disease Status: Chronic Problem Text: Continue oxygen support Continue DuoNeb every 6 hours when necessary Continue all home meds (4) Diabetes mellitus Onset Date: 05/07/2014 Status: Chronic Problem Text: Carbohydrate consistent diet Fingerstick blood sugar every before meals and at bedtime with coverage Continue home meds Plan / VTE VTE Prophylaxis Ordered?: Yes SUHAS WAGNER MD Aug 08, 2019 13:47
--- NOTE | 2019-08-08 14:17 | REPVR ---
PROCEDURE INFORMATION: Exam: MR Angiogram Head Without Contrast, Arteries Exam date and time: 08/08/2019 10:04 AM Clinical history: 58 years old, female; Cognitive deficit; Altered mental status; Additional info: Altered mental stataius TECHNIQUE: Imaging protocol: MR angiogram head without contrast. Exam focused on the arteries. COMPARISON: CT Head without contrast 08/08/2019 8:43 AM FINDINGS: Limitations: Mild motion. Right internal carotid artery: Mild irregularity of the right internal carotid artery, probably due to atherosclerotic change. No occlusion. Right anterior cerebral artery: Unremarkable. No occlusion or significant stenosis. No aneurysm. Right middle cerebral artery: Unremarkable. No occlusion or significant stenosis. No aneurysm. Right posterior cerebral artery: Unremarkable. No occlusion or significant stenosis. No aneurysm. Right vertebral artery: Unremarkable. No occlusion or significant stenosis. No aneurysm. Left internal carotid artery: Mild irregularity of the left internal carotid artery, probably due to atherosclerotic change. No occlusion. Left anterior cerebral artery: Unremarkable. No occlusion or significant stenosis. No aneurysm. Left middle cerebral artery: Unremarkable. No occlusion or significant stenosis. No aneurysm. Left posterior cerebral artery: Unremarkable. No occlusion or significant stenosis. No aneurysm. Left vertebral artery: Unremarkable. No occlusion or significant stenosis. No aneurysm. Basilar artery: Unremarkable. No occlusion or significant stenosis. No aneurysm. IMPRESSION: Mild atherosclerotic changes of the internal carotid arteries. No intracranial occlusion, significant stenosis or aneurysm identified, allowing for mild motion. Electronically signed by: Craig Metcalf On 08/08/2019 14:17:31 PM
--- NOTE | 2019-08-08 14:20 | REPVR ---
PROCEDURE INFORMATION: Exam: MR Head Without Contrast Exam date and time: 08/08/2019 10:03 AM Clinical history: 58 years old, female; Altered mental status/memory loss; Confusion or disorientation; Additional info: Altered metnal status TECHNIQUE: Imaging protocol: MR of the head without contrast. COMPARISON: CT Head without contrast 08/08/2019 8:43 AM FINDINGS: Limitations: Mild motion. Brain: The diffusion weighted images demonstrate no evidence for acute infarct. The cerebellar tonsils are normal in position. The major intracranial vascular flow voids appear grossly patent. No intracranial hemorrhage or extraaxial collection is identified. There are mild degrees of increased signal in the periventricular white matter bilaterally, along with several small foci of increased signal in the deep subcortical white matter, most suggestive of chronic microvascular ischemic disease. There is no significant intracranial mass effect, and no mass is identified. Ventricles: The ventricles and sulci are stable in configuration. Bones/joints: Unremarkable. Soft tissues: Unremarkable. Sinuses: Normal as visualized. No acute sinusitis. Mastoid air cells: Normal as visualized. No mastoid effusion. Orbits: Unremarkable. IMPRESSION: 1. Mildly motion limited exam without evidence for acute infarct, hemorrhage or mass. 2. Mild chronic white matter disease. Electronically signed by: Craig Metcalf On 08/08/2019 14:20:44 PM
--- NOTE | 2019-08-08 15:48 | ECGEPIP ---
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
[2019-08-08] MEDS: HumaLOG INSULIN (NovoLOG) PER UNIT SC SCH ×2 (18:12→21:00)
[2019-08-08] MEDS: metFORMIN (GLUCOPHAGE) 1000 MG TABLET PO SCH (18:12)
[2019-08-08 20:44] VITALS: BP 124/64
[2019-08-08] MEDS: DOCUSATE SODIUM 100 MG CAP PO SCH (21:13)
[2019-08-08] MEDS: ENOXAPARIN 40 MG/0.4 ML SYRINGE (J1650) SC SCH (21:14)
[2019-08-08] MEDS ORDERED: levETIRAcetam INJection 1,000 MG in D5W 100 ML IV SCH (22:00)
[2019-08-08] MEDS: GLIMEPIRIDE 2 MG TAB PO SCH (22:53)
[2019-08-08 23:59] VITALS: BP 111/56
[2019-08-09 04:00] VITALS: BP 119/57
[2019-08-09 05:58] LABS: ALBUMIN 2.4 GM/DL (3.2-5.2); ALT/SGPT 50 U/L (12-78); BILIRUBIN,TOTAL 0.4 MG/DL (0.2-1.0); BLOOD UREA NITROGEN 11 MG/DL (7-18); CALCIUM LEVEL 8.6 MG/DL (8.5-10.1); CARBON DIOXIDE LEVEL 40 MEQ/L (21-32); CHLORIDE LEVEL 94 MEQ/L (98-107); CREATININE FOR GFR 0.41 MG/DL (0.55-1.30); GLOMERULAR FILTRATION RATE > 60.0 (>51); GLUCOSE, FASTING 152 MG/DL (70-100); MAGNESIUM LEVEL 1.7 MG/DL (1.8-2.4); POTASSIUM SERUM 3.6 MEQ/L (3.5-5.1); SODIUM LEVEL 139 MEQ/L (136-145); TOTAL PROTEIN 5.6 GM/DL (6.4-8.2)
[2019-08-09 08:00] VITALS: BP 127/60
[2019-08-09] MEDS: HumaLOG INSULIN (NovoLOG) PER UNIT SC SCH ×4 (09:09→20:44)
[2019-08-09] MEDS: ATORVASTATIN 20 MG TAB PO SCH (09:10)
[2019-08-09] MEDS: EZETIMIBE 10 MG TAB (ZETIA) PO SCH (09:11)
[2019-08-09] MEDS: GLIMEPIRIDE 2 MG TAB PO SCH ×2 (09:11→20:36)
[2019-08-09] MEDS: MONTELUKAST 10 MG TAB PO SCH (09:11)
[2019-08-09] MEDS: metFORMIN (GLUCOPHAGE) 1000 MG TABLET PO SCH ×2 (09:11→17:11)
[2019-08-09] MEDS: FLUoxetine 20 MG CAP PO SCH (09:11)
[2019-08-09] MEDS: LORATADINE 10 MG TAB PO SCH (09:12)
[2019-08-09] MEDS: CYANOCOBALAMIN 500 MCG TAB PO SCH (09:12)
[2019-08-09] MEDS: DOCUSATE SODIUM 100 MG CAP PO SCH ×2 (09:12→20:37)
[2019-08-09] MEDS: FUROSEMIDE 20 MG TAB PO SCH (09:12)
[2019-08-09] MEDS: PANTOPRAZOLE 20 MG TAB PO SCH (09:12)
[2019-08-09] MEDS: predniSONE 20 MG TAB PO SCH (09:16)
[2019-08-09 12:00] VITALS: BP 129/60
[2019-08-09] MEDS: ZONISAMIDE 50 MG CAP (ZONEGRAN) PO SCH (12:38)
[2019-08-09 16:00] VITALS: BP 125/67
--- NOTE | 2019-08-09 16:04 | IPNPDOC ---
Subjective Date Seen The patient was seen on 08/09/19. Subjective Chief Complaint/HPI Leila reports that her brain/thinking is much more clear than it was yesterday when she was admitted. She saw Dr. Toro earlier today and they report that his working theory for her episode of delirium is complicated migraine headache; his documentation is not available for my review yet. One question she asked for us is if we are able to contact Andrea asked them to expedite the exchange of her oxygen equipment. Apparently she is supposed to have it changed out so the equipment she has can be cleaned after her recent pneumonia. General: Reports: Normal Appetite Eyes: Reports: Vision change (related to the reported need for cataract surgery) Pulmonary: Denies: Dyspnea, Cough Cardiovascular: Denies: Chest Pain, Palpitations Genitourinary: Denies: Dysuria Psych: Reports: Mood Normal; Denies: Memory Issues Objective Physical Examination General Exam: Positive: Alert, Cooperative, No Acute Distress (sitting in a chair talking to her family members when I entered the room) Eye Exam: Negative: Sclera icteric ENT Exam: Positive: Atraumatic, Mucous membr. moist/pink, Other ENT (and examined and able to examine) Neck Exam: Positive: Supple; Negative: Lymphadenopathy Chest Exam: Positive: Clear to auscultation, Normal air movement Heart Exam: Positive: Rate Normal, Normal S1 Abdomen Exam: Positive: Normal bowel sounds, Soft; Negative: Tenderness Extremity Exam: Negative: Edema Skin Exam: Positive: Nl turgor and temperature; Negative: Rash, Breakdown Neuro Exam: Positive: Normal Speech, Normal Tone Psych Exam: Positive: Mental status NL, Mood NL, Memory Intact, Oriented x 3; Negative: Anxiety Assessment /Plan Problems (1) Altered mental state Status: Acute Problem Text: 08/09/19: Her delirium seems to have resolved. The exact cause is not clear to me, but a theory about complex migraines certainly is plausible. 08/08/19: 58 years old white female with past medical history of depression, COPD on home oxygen, diabetes mellitus, emphysema, hyperlipidemia presented with multiple ragged complaints which do not coincide with her physical examination at different times. She response different people and the situation changes in a few seconds at variable rate. Altered mental state could be secondary to seizure disorder versus malingering for secondary gain CT head is essentially within normal limits Chest x-ray is within normal limits MRI is done but report is pending Neurology consult with Dr. Toro was called from ED Will admit patient under TO PCU Seizure precaution Continue Keppra Etiology home meds Aggressive blood sugar every before meals and at bedtime with coverage DVT prophylaxis with Lovenox Activity out of bed to bathroom Will sign out patient to family practice in a.m. (2) HTN (hypertension) Status: Chronic Problem Text: Blood pressure under well control. Continue home meds, monitor. (3) Chronic obstructive airway disease Status: Chronic Problem Text: I will put in a PFS consult requesting assistance with her oxygen equipment at home. Continue oxygen support. Continue DuoNeb every 6 hours when necessary. Continue all home meds. She has a prednisone taper written, I'm not sure how necessary this is. We'll continue for now, but reassess the true need for steroid therapy. (4) Diabetes mellitus Onset Date: 05/07/2014 Status: Chronic Problem Text: Carbohydrate consistent diet. Fingerstick blood sugar before meals and at bedtime with coverage. Plan/VTE VTE Prophylaxis Ordered?: Yes (Lovenox) Plan Diagnostics: Repeat Labs in AM Anticipated Discharge: Home VS, I&O, [facility] Vital Signs/I&O Vital Signs Date Time Temp Pulse Resp B/P (MAP) Pulse Ox O2 Delivery O2 Flow Rate FiO2 08/09/19 08:00 3.0 08/09/19 08:00 97.0 62 18 127/60 (82) 97 08/08/19 16:15 Nasal Cannula 08/08/19 11:33 40 I&O- Last 24 Hours up to 6 AM 08/09/19 06:00 Intake Total 240 ml Output Total 1150 ml Balance -910 ml Laboratory Data 24H LABS Laboratory Tests 2 08/08/19 17:54: Bedside Glucose (Misc Panel) 213H 08/08/19 21:04: Bedside Glucose (Misc Panel) 111H 08/09/19 05:19: Anion Gap 5L, Glomerular Filtration Rate > 60.0, Blood Urea Nitrogen 11, Creatinine 0.41L, Sodium Level 139, Potassium Level 3.6, Chloride Level 94L, Carbon Dioxide Level 40H, Calcium Level 8.6, Aspartate Amino Transf (AST/SGOT) 29, Alanine Aminotransferase (ALT/SGPT) 50, Alkaline Phosphatase 90, Total Bilirubin 0.4, Total Protein 5.6L, Albumin 2.4#L, Magnesium Level 1.7L, Albumin/Globulin Ratio 0.75L 08/09/19 11:25: Bedside Glucose (Misc Panel) 306H CBC/BMP Laboratory Tests 08/09/19 05:19 Calcium Level 8.6, Aspartate Amino Transf (AST/SGOT) 29, Alanine Aminotransferase (ALT/SGPT) 50, Alkaline Phosphatase 90, Total Bilirubin 0.4, Total Protein 5.6 L, Albumin 2.4 #L Microbiology Microbiology 08/08/19 Blood Culture - Preliminary, Resulted No growth after 24 hours . All specim... 08/08/19 Blood Culture - Preliminary, Resulted No growth after 24 hours . All specim... 08/08/19 Respiratory Virus Panel (PCR) ([facility]) - Final, Complete Uriah Jarvis MD Aug 09, 2019 4:04 pm
[2019-08-09] MEDS: IPRATROPIUM 0.5MG/ALBUTEROL 2.5MG INH SOL UD 3ML (DUONEB)(J7620) NEB PRN ×2 (16:27→19:52)
--- NOTE | 2019-08-09 17:39 | REP ---
CAROTID ULTRASOUND: Real-time ultrasound evaluation and duplex Doppler interrogation of the extracranial carotid vasculature is performed. There is mild to moderate plaquing and narrowing in both carotid bulbs extending into the internal and external carotid arteries. Luminal narrowing is less than 50%. There is no evidence of hemodynamically significant stenosis of either internal carotid artery. Normal flow velocities are seen. The vertebral arteries demonstrate normal direction of flow. RIGHT LEFT Peak systolic velocity ICA 66.4 cm/s 61.0 cm/s End diastolic velocity ICA 14.4 cm/s 13.6 cm/s Peak systolic velocity CCA 87.9 cm/s 83.6 cm/s Peak systolic velocity ECA 155.6 cm/s 126.4 cm/s ICA/CCA ratio 0.76 0.73 IMPRESSION: Bilateral luminal narrowing of the internal carotid arteries less than 50%. No evidence of hemodynamically significant stenosis. Electronically Signed by Aguilar Celis MD 08/09/2019 05:32 P
[2019-08-09 20:00] VITALS: BP 118/55
[2019-08-09] MEDS: ENOXAPARIN 40 MG/0.4 ML SYRINGE (J1650) SC SCH (20:37)
--- NOTE | 2019-08-09 20:42 | CR ---
DATE OF CONSULTATION: 08/09/2019 REFERRING PHYSICIAN: Dr. Lopez REASON FOR CONSULTATION: Multiple complaints. HISTORY OF PRESENT ILLNESS: Leila Rosales is a 58-year-old woman who was admitted at [facility] and came to emergency department yesterday and had multiple complaints. Patient and her today state that she had severe headache. It was 10/10 in intensity and would come and go and she had never had such a headache before. She felt confused. She felt a lot of bright colors and lights in her right eye. She felt blurred vision, right more than left eye. She used to have migraines when she was young but had never had such a headache before. She felt dizzy and had nausea, vomiting. She could not talk. She felt out of it. Different providers noted different symptoms when they talked to her in the emergency department. Dr. Dimas told me that she would have eye deviation lasting for 1 minute at times. She was noted not to have any focal neurological deficits yesterday. During our phone conversation we were concerned about complex partial seizure and she received Ativan and Keppra in the emergency department. The patient has history of chronic neck and back pain. She denies seizure or stroke-like symptoms in past. She denies dysphagia, dysarthria, diplopia or urinary incontinence. She states that she has degenerative disc disease in her neck and back. She was recently admitted at [facility] due to pneumonia and COPD exacerbation. She uses oxygen and it seems that there is some concern of inability to get oxygen in a timely fashion. PAST MEDICAL HISTORY: Diabetes, dyslipidemia, anxiety, depression, COPD, acid reflux, seasonal allergies. ALLERGIES: MOXIFLOXACIN, PENICILLIN, CODEINE, FORMOTEROL, SALMETEROL, BUDESONIDE, protein milk, mushroom. HOME MEDICATIONS: - Alogliptine 25 mg by mouth daily - Lipitor 80 mg by mouth daily - vitamin B12 1000 mcg by mouth daily - doxycycline 100 mg by mouth twice a day - vitamin D2 50,000 units once a month - Zetia 10 mg by mouth daily - Prozac 20 mg, three capsules by mouth daily - Lasix 20 mg by mouth daily - glimepiride 4 mg by mouth twice a day - Atrovent two puffs inhalation every 6 hours - Prevacid 30 mg by mouth daily - Claritin 10 mg by mouth daily - metformin 1000 mg by mouth twice a day - Singulair 10 mg by mouth daily - prednisone 20 mg by mouth daily as needed for COPD exacerbation - albuterol inhaler two puffs every four hours - Mucinex 1200 mg by mouth twice a day as needed - Vicodin 5/325 mg by mouth three times a day as needed - naproxen 440 mg by mouth twice a day as needed SOCIAL HISTORY: She is a former smoker and quit more than a year ago. FAMILY HISTORY: Mother with history of hypertension and father with history of heart disease. They both . REVIEW OF SYSTEMS: All systems were reviewed and found to be noncontributory except as mentioned in history of present illness. PHYSICAL EXAMINATION: Temperature 97, pulse 62, respiratory rate 18, blood pressure 127/60, 97% saturation on 3 liters nasal oxygen. Heart: Regular rate and rhythm. Lungs: Show few rhonchi and crackles in the bases. Abdomen: Soft, nontender, nondistended. No pedal edema. No musculoskeletal abnormalities. No rash. No signs of meningeal irritation. The patient is awake, alert, oriented to place, person and time. Normal speech comprehension and repetition. Extraocular muscles are intact. No facial weakness. Tongue and uvula are midline. 5/5 strength in upper extremities. Deep tendon reflexes are 1+ throughout. Normal sensation. Gait is mildly unsteady. Recent and distant memory is intact. Visual black are full to confrontation. There is no nystagmus. DIAGNOSTIC STUDIES: CT scan of head, MRI of brain showed mild small-vessel ischemic disease of brain. MRA brain showed mild atherosclerosis of internal carotid arteries. His urine toxicology screen was normal. Blood alcohol level was less than 0.03. Ammonia level was 42. WBC 17, platelet count 477 with normal metabolic profile. TSH was 0.8., vitamin B1 and vitamin B12 level were normal. Arterial blood gas showed pCO2 96.7 which decreased to 75 and pO2 44.7. pH was 7.28 and increased to 7.38. Urinalysis was normal. ASSESSMENT: 1. Suspected migraine with aura. 2. Rule out transient ischemic attack. 3. Seizures are less likely. 4. Chronic neck and back pain. 5. History of recent pneumonia and COPD exacerbation with chronic compensated hypercapnic respiratory failure. PLAN: 1. Discontinue Keppra. 2. Zonisamide 50 mg by mouth daily. 3. Aspirin 81 mg by mouth daily. 4. Carotid ultrasound and EEG. 5. Follow with our office in 2-4 weeks after hospital discharge.
[2019-08-10] VITALS: BP_SYST 120; BP_SYST 127; BP_DIAS 63; BP_DIAS 65
[2019-08-10 04:00] VITALS: BP 136/62
[2019-08-10 07:51] VITALS: BP 130/58
--- NOTE | 2019-08-10 08:31 | IPNPDOC ---
Subjective Date Seen The patient was seen on 08/10/19. Subjective Chief Complaint/HPI MS change Events since last encounter Patient's behavior has returned to baseline. no further confusion. Planned EEG today. Constitutional: Denies: Chills, Fever, Night Sweats Pulmonary: Reports: Dyspnea (baseline); Denies: Cough, Pleuritic Chest Pain, Other Symptoms Cardiovascular: Denies: Chest Pain, Palpitations, Orthopnea, Paroxysmal Noc. Dyspnea, Lt Headedness Gastrointestinal: Denies: Nausea, Vomiting, Abdominal Pain, Diarrhea, Constipation Neurological: Denies: Weakness, Numbness, Change in speech, Confusion Objective Physical Examination General Exam: Positive: Alert, Cooperative, No Acute Distress Eye Exam: Negative: Sclera icteric ENT Exam: Positive: Atraumatic, Mucous membr. moist/pink, Other ENT (and examined and able to examine) Neck Exam: Positive: Supple; Negative: Lymphadenopathy Chest Exam: Positive: Clear to auscultation, Normal air movement Heart Exam: Positive: Rate Normal, Normal S1 Abdomen Exam: Positive: Normal bowel sounds, Soft; Negative: Tenderness Extremity Exam: Negative: Edema Skin Exam: Positive: Nl turgor and temperature; Negative: Rash, Breakdown Neuro Exam: Positive: Normal Speech, Normal Tone Psych Exam: Positive: Mental status NL, Mood NL, Memory Intact, Oriented x 3; Negative: Anxiety Assessment /Plan Problems (1) Altered mental state Status: Acute Problem Text: 08/10/19: Per neuro consults: complex migraine in differential. Planned EEG today, once this is complete patient can go home and f/u with PCP as scheduled in 3 days. Delirium has resolved. 08/09/19: Her delirium seems to have resolved. The exact cause is not clear to me, but a theory about complex migraines certainly is plausible. 08/08/19: 58 years old white female with past medical history of depression, COPD on home oxygen, diabetes mellitus, emphysema, hyperlipidemia presented with multiple ragged complaints which do not coincide with her physical examination at different times. She response different people and the situation changes in a few seconds at variable rate. Altered mental state could be secondary to seizure disorder versus malingering for secondary gain CT head is essentially within normal limits Chest x-ray is within normal limits MRI is done but report is pending Neurology consult with Dr. Toro was called from ED Will admit patient under TO PCU Seizure precaution Continue Keppra Etiology home meds Aggressive blood sugar every before meals and at bedtime with coverage DVT prophylaxis with Lovenox Activity out of bed to bathroom Will sign out patient to family practice in a.m. (2) HTN (hypertension) Status: Chronic Problem Text: Blood pressure under well control. Continue home meds, monitor. (3) Chronic obstructive airway disease Status: Chronic Problem Text: I will put in a PFS consult requesting assistance with her oxygen equipment at home. Continue oxygen support. Continue DuoNeb every 6 hours when necessary. Continue all home meds. She has a prednisone taper written, I'm not sure how necessary this is. We'll continue for now, but reassess the true need for steroid therapy. (4) Diabetes mellitus Onset Date: 05/07/2014 Status: Chronic Problem Text: Carbohydrate consistent diet. Fingerstick blood sugar before meals and at bedtime with coverage. Plan/VTE VTE Prophylaxis Ordered?: Yes (Lovenox) Plan Diagnostics: Repeat Labs in AM Anticipated Discharge: Home VS, I&O, 24H, Fishbone Vital Signs/I&O Vital Signs Date Time Temp Pulse Resp B/P (MAP) Pulse Ox O2 Delivery O2 Flow Rate FiO2 08/10/19 07:51 97.0 58 18 130/58 (82) 95 3.0 08/08/19 16:15 Nasal Cannula 08/08/19 11:33 40 I&O- Last 24 Hours up to 6 AM 08/10/19 06:00 Intake Total 480 ml Output Total 1450 ml Balance -970 ml Laboratory Data 24H LABS Laboratory Tests 2 08/09/19 11:25: Bedside Glucose (Misc Panel) 306H 08/09/19 16:50: Bedside Glucose (Misc Panel) 350H 08/09/19 20:33: Bedside Glucose (Misc Panel) 271H 08/10/19 07:52: Bedside Glucose (Misc Panel) 210H Microbiology Microbiology 08/08/19 Blood Culture - Preliminary, Resulted No growth after 24 hours . All specim... 08/08/19 Blood Culture - Preliminary, Resulted No growth after 24 hours . All specim... 08/08/19 Respiratory Virus Panel (PCR) ([facility]URVINDER) - Final, Complete Maida Padilla [employer] RESIDENTIAL SERVICE TECHNICIAN Aug 10, 2019 08:31
[2019-08-10] MEDS ORDERED: ASPIRIN 81 MG ENTERIC TAB PO SCH (09:00)
[2019-08-10] MEDS: ATORVASTATIN 20 MG TAB PO SCH (09:39)
[2019-08-10] MEDS: predniSONE 20 MG TAB PO SCH (09:39)
[2019-08-10] MEDS: ZONISAMIDE 50 MG CAP (ZONEGRAN) PO SCH (09:39)
[2019-08-10] MEDS: DOCUSATE SODIUM 100 MG CAP PO SCH (09:39)
[2019-08-10] MEDS: HumaLOG INSULIN (NovoLOG) PER UNIT SC SCH ×3 (09:39→18:17)
[2019-08-10] MEDS: MONTELUKAST 10 MG TAB PO SCH (09:40)
[2019-08-10] MEDS: PANTOPRAZOLE 20 MG TAB PO SCH (09:40)
[2019-08-10] MEDS: EZETIMIBE 10 MG TAB (ZETIA) PO SCH (09:40)
[2019-08-10] MEDS: LORATADINE 10 MG TAB PO SCH (09:40)
[2019-08-10] MEDS: FUROSEMIDE 20 MG TAB PO SCH (09:40)
[2019-08-10] MEDS: CYANOCOBALAMIN 500 MCG TAB PO SCH (09:40)
[2019-08-10] MEDS: metFORMIN (GLUCOPHAGE) 1000 MG TABLET PO SCH ×2 (09:41→18:16)
[2019-08-10] MEDS: FLUoxetine 20 MG CAP PO SCH (09:41)
[2019-08-10 09:58] LABS: VITAMIN B12 LEVEL 1570 PG/ML (247-911)
[2019-08-10] MEDS: GLIMEPIRIDE 2 MG TAB PO SCH (11:28)
[2019-08-10 11:47] VITALS: BP 133/72
[2019-08-10 15:59] VITALS: BP 102/48
--- NOTE | 2019-08-11 06:47 | EEG ---
DATE OF PROCEDURE: 08/10/2019 REFERRING PHYSICIAN: Dr. Abhishek Raymond DIAGNOSIS: Altered mental status, rule out seizure. EEG #: [id number] HISTORY: The patient is a 58-year-old woman who was admitted at [facility] due to severe headache, blurred vision, dizziness, altered mentation and speech. This EEG was done to rule out epileptic potential. She is currently taking zonisamide, aspirin, glimepiride, metformin, Zetia, vitamin B12, Lipitor, etc. TECHNICAL DESCRIPTION: This digital EEG was recorded by 21 scalp, ear and two EKG electrodes and was reviewed in bipolar and referential montages following reformatting in 10-20 international electrode placement system. INTERPRETATION: The patient was noted to be in awake and drowsy states during this EEG. Resting awake background rhythm consisted of 8-1/2 Hz alpha activity measuring 15-40 microvolts in amplitude. Anteriorly low voltage and mixed frequency activity was noted. Attenuation of posterior dominant was seen during transition into drowsiness. Stage I and II sleep were reviewed and were symmetric bilaterally. Hyperventilation could not be performed. Photic stimulation remained unremarkable. EKG revealed normal sinus rhythm. No focal, lateralizing or epileptiform abnormalities were seen. No clinical or electrographic seizures were recorded. CONCLUSION: This EEG in awake, drowsy states, stage I and II sleep is within normal limits.
--- NOTE | 2019-08-11 10:33 | DSES ---
DATE OF ADMISSION: 08/08/2019 DATE OF DISCHARGE: 08/10/2019 DISCHARGE DIAGNOSES: 1. Mental status change, fever secondary to complex migraine. 2. Chronic obstructive pulmonary disease (COPD) exacerbation. 3. Congestive heart failure (CHF). 4. Secondary diastolic dysfunction. 5. Hypertension. 6. Diabetes mellitus type 2, noninsulin dependent. HOSPITAL COURSE: The patient was admitted with sudden onset of global mental status change with dysarthria. Preceding to these symptoms she did have a unilateral right sided headache, throbbing in nature, 10 out of 10 in severity. She did also feel slightly weaker on the right side. These symptoms resolved by day one of admission. She was initially placed on lorazepam and Keppra in the emergency department. Her MRI and MRA of the brain and carotid ultrasound revealed small vessel disease. Blood cultures times two showed no growth. Respiratory panel was negative. While hospitalized, she had no recurrence of the headache. She was seen by Dr. Toro of neurology, who also felt that her symptoms were related to complex migraine. Electroencephalogram (EEG) was done on the day of discharge prior to discharge. The patient was discharged to home on her previous medication regimen, including: - prednisone taper from her previous admission - doxycycline from her previous admission She was started on zonisamide 50 mg by mouth daily by Dr. Toro. She was instructed to followup with Dr. Raymond in [address] Toro in 3 to 4 weeks.
[2019-08-12] MEDS ORDERED: predniSONE 20 MG TAB PO SCH (09:00)
[2019-08-15] MEDS ORDERED: predniSONE 10 MG TAB PO SCH (09:00)
[2019-08-20] MEDS ORDERED: EZET10TA21 PO (14:39)
[2019-08-20] MEDS ORDERED: ZONI50CA3 PO (14:46)
[2019-08-20] MEDS ORDERED: ASPI81TA85 PO (14:46)
[2019-08-20] MEDS ORDERED: CELE1CAP9 PO (14:46)
== END 2019-08-10 19:38 | disposition home or self-care (01) ==
LOC: EDBD 08:15 → M ED 08:15 → M ED INP 13:47 → M PCU 20:45
PROVIDERS: ADMIT Internal Medicine; ATTEND Family Medicine
DX: R41.82 Altered mental status, unspecified (principal); R50.9 Fever, unspecified; G43.909 Migraine, unspecified, not intractable, without status migrainosus; J44.1 Chronic obstructive pulmonary disease with (acute) exacerbation; I50.32 Chronic diastolic (congestive) heart failure; I11.0 Hypertensive heart disease with heart failure; E11.9 Type 2 diabetes mellitus without complications; E78.49 Other hyperlipidemia; K21.9 Gastro-esophageal reflux disease without esophagitis; F41.9 Anxiety disorder, unspecified; F32.9 Major depressive disorder, single episode, unspecified; Z79.84 Long term (current) use of oral hypoglycemic drugs; Z87.891 Personal history of nicotine dependence; Z79.52 Long term (current) use of systemic steroids; Z79.51 Long term (current) use of inhaled steroids; Z88.0 Allergy status to penicillin; Z88.8 Allergy status to other drugs, medicaments and biological substances
CPT/HCPCS: 36415; 36600; 70450; 70544; 70551; 71045; 80047; 80048; 80053; 80076; 80307; 81001; 82140; 82550; 82553; 82607; 82803; 83605; 83735; 83930; 84425; 84443; 85025; 85652; 86140; 87040; 87486; 87581; 87633; 87798; 93005; 93041; 93880; 94640; 94660; 95819; 96372; 96375; 96376; 99285; G0480; J1650; J1953

== ENCOUNTER → 2019-09-10 | Outpatient (REF) | payer OTHER ==
[~2019-09-10] MED LIST changes: +ASPI81TA85 PO; +CELE1CAP9 PO; +EZET10TA21 PO; -GLIM4TAB PO; +GLIM4TAB3 PO; -OMEP40CA2 PO; +OMEP40CA97 PO; +ZONI50CA3 PO
[2019-09-10 15:44] LABS: BASO # 0.1 10^3/uL (0.0-0.2); BASO % 0.5 % (0.0-1.0); EOS # 0.1 10^3/uL (0.0-0.5); EOS % 0.7 % (0.0-3.0); HEMATOCRIT 42.3 % (36.0-47.0); HEMOGLOBIN 13.2 g/dl (12.0-15.5); LYMPH % 18.2 % (24.0-44.0); MEAN CORPUSCULAR HEMOGLOBIN 30.9 pg (27.0-33.0); MEAN CORPUSCULAR HGB CONC 31.2 g/dl (32.0-36.5); MEAN CORPUSCULAR VOLUME 99.1 fl (80.0-96.0); MONO # 0.8 10^3/uL (0.0-0.8); MONO % 7.2 % (0.0-5.0); NEUTROPHILS % 72.7 % (36.0-66.0); PLATELET COUNT, AUTOMATED 397 10^3/uL (150-450); RED BLOOD COUNT 4.27 10^6/uL (4.00-5.40); WHITE BLOOD COUNT 11.1 10^3/uL (4.0-10.0)
[2019-09-10 16:02] LABS: HEMOGLOBIN A1c 10.5 %
[2019-09-10 16:04] LABS: INR 0.97; PROTHROMBIN TIME 12.6 SECONDS (11.8-14.0)
[2019-09-10 16:05] LABS: PARTIAL THROMBOPLASTIN TIME 32.3 SECONDS (25.0-38.4)
[2019-09-10 16:07] LABS: ALBUMIN 4.1 GM/DL (3.2-5.2); ALT/SGPT 29 U/L (12-78); BILIRUBIN,TOTAL 0.2 MG/DL (0.2-1.0); BLOOD UREA NITROGEN 14 MG/DL (7-18); CALCIUM LEVEL 10.2 MG/DL (8.5-10.1); CARBON DIOXIDE LEVEL 35 MEQ/L (21-32); CHLORIDE LEVEL 100 MEQ/L (98-107); CREATININE FOR GFR 0.56 MG/DL (0.55-1.30); GLOMERULAR FILTRATION RATE > 60.0 (>51); GLUCOSE, FASTING 152 MG/DL (70-100); POTASSIUM SERUM 4.4 MEQ/L (3.5-5.1); SODIUM LEVEL 142 MEQ/L (136-145); TOTAL PROTEIN 7.3 GM/DL (6.4-8.2)
== END ==
LOC: M SFHCPLAZ 12:48
PROVIDERS: ATTEND Family Medicine
DX: G43.409 Hemiplegic migraine, not intractable, without status migrainosus (principal)

== ENCOUNTER → 2019-10-13 | Outpatient (CLI) | payer OTHER ==
[2019-10-13 16:20] LABS: BASO # 0.1 10^3/uL (0.0-0.2); BASO % 0.8 % (0.0-1.0); EOS # 0.2 10^3/uL (0.0-0.5); EOS % 2.1 % (0.0-3.0); HEMATOCRIT 41.3 % (36.0-47.0); HEMOGLOBIN 13.2 g/dl (12.0-15.5); LYMPH # 2.9 10^3/uL (1.5-5.0); LYMPH % 25.6 % (24.0-44.0); MEAN CORPUSCULAR HEMOGLOBIN 31.1 pg (27.0-33.0); MEAN CORPUSCULAR VOLUME 97.2 fl (80.0-96.0); MONO # 0.7 10^3/uL (0.0-0.8); MONO % 6.6 % (0.0-5.0); NEUTROPHILS # 7.2 10^3/uL (1.5-8.5); NEUTROPHILS % 64.5 % (36.0-66.0); PLATELET COUNT, AUTOMATED 385 10^3/uL (150-450); RED BLOOD COUNT 4.25 10^6/uL (4.00-5.40); WHITE BLOOD COUNT 11.2 10^3/uL (4.0-10.0)
--- NOTE | 2019-10-13 16:22 | REP ---
Chest x-ray: Two views. History: Community-acquired pneumonia. Comparison chest x-ray August 08, 2019. Findings: Previously noted left lower lobe infiltrate is virtually resolved with some linear density consistent with linear fibrosis and indeed it is unchanged from November 14, 2018 prior chest x-ray. No new infiltrate is seen. The lungs are somewhat hyperinflated. There are clips in the right upper quadrant post cholecystectomy. Heart is not enlarged. Impression: Previously noted infiltrate has resolved. Linear fibrosis left inferior perihilar region. Electronically Signed by Ad Heath MD 10/13/2019 04:26 P
== END ==
LOC: M LAB 15:28
PROVIDERS: ATTEND Physician Assistant Medical
DX: J18.1 Lobar pneumonia, unspecified organism (principal)

== ENCOUNTER → 2020-01-21 | Outpatient (REF) | payer OTHER ==
[~2020-01-21] MED LIST changes: +FLUO20CA20 PO; -FLUO20CA8 PO; -GLIM4TAB3 PO; +GLIM4TAB5 PO; -MONT10TA2 PO; +MONT10TA4 PO; +ZONI50CA11 PO; -ZONI50CA3 PO
[2020-01-21 14:14] LABS: BASO # 0.1 10^3/uL (0.0-0.2); BASO % 0.5 % (0.0-1.0); EOS # 0.1 10^3/uL (0.0-0.5); EOS % 1.2 % (0.0-3.0); HEMATOCRIT 44.4 % (36.0-47.0); HEMOGLOBIN 13.6 g/dl (12.0-15.5); LYMPH # 2.1 10^3/uL (1.5-5.0); MEAN CORPUSCULAR HGB CONC 30.6 g/dl (32.0-36.5); MEAN CORPUSCULAR VOLUME 101.1 fl (80.0-96.0); MONO # 0.7 10^3/uL (0.0-0.8); MONO % 6.3 % (0.0-5.0); NEUTROPHILS # 8.7 10^3/uL (1.5-8.5); NEUTROPHILS % 73.4 % (36.0-66.0); PLATELET COUNT, AUTOMATED 358 10^3/uL (150-450); RED BLOOD COUNT 4.39 10^6/uL (4.00-5.40); WHITE BLOOD COUNT 11.8 10^3/uL (4.0-10.0)
[2020-01-21 14:52] LABS: ALBUMIN 4.1 GM/DL (3.2-5.2); ALT/SGPT 27 U/L (12-78); BILIRUBIN,TOTAL 0.3 MG/DL (0.2-1.0); BLOOD UREA NITROGEN 6 MG/DL (7-18); CALCIUM LEVEL 9.2 MG/DL (8.5-10.1); CARBON DIOXIDE LEVEL 40 MEQ/L (21-32); CHLORIDE LEVEL 94 MEQ/L (98-107); CREATININE FOR GFR 0.59 MG/DL (0.55-1.30); FREE T4 0.96 NG/DL (0.76-1.46); GLOMERULAR FILTRATION RATE > 60.0 (>51); GLUCOSE, FASTING 139 MG/DL (70-100); NT-PRO BNP 102 PG/ML (<125); POTASSIUM SERUM 4.7 MEQ/L (3.5-5.1); SODIUM LEVEL 139 MEQ/L (136-145); THYROID STIMULATING HORMONE 0.714 uIU/ML (0.358-3.740); TOTAL PROTEIN 7.5 GM/DL (6.4-8.2); TROPONIN I < 0.02 NG/ML (< 0.10)
[2020-01-24 00:06] LABS: INSULIN LEVEL 22.8 uIU/mL (2.6-24.9)
== END ==
LOC: M SFHCPLAZ 12:56
PROVIDERS: ATTEND Family Medicine
DX: E11.9 Type 2 diabetes mellitus without complications (principal); M47.816 Spondylosis without myelopathy or radiculopathy, lumbar region; E78.2 Mixed hyperlipidemia; J44.9 Chronic obstructive pulmonary disease, unspecified

== ENCOUNTER → 2020-09-23 | Outpatient (REF) | payer OTHER ==
[~2020-09-23] MED LIST changes: -ASPI81TA85 PO; +ASPI81TA86 PO
[2020-09-23 13:50] LABS: BASO % 0.3 % (0.0-1.0); EOS # 0.2 10^3/uL (0.0-0.5); EOS % 1.5 % (0.0-3.0); HEMATOCRIT 42.9 % (36.0-47.0); HEMOGLOBIN 12.6 g/dl (12.0-15.5); LYMPH # 2.2 10^3/uL (1.5-5.0); LYMPH % 20.8 % (24.0-44.0); MEAN CORPUSCULAR HEMOGLOBIN 29.8 pg (27.0-33.0); MEAN CORPUSCULAR HGB CONC 29.4 g/dl (32.0-36.5); MEAN CORPUSCULAR VOLUME 101.4 fl (80.0-96.0); MONO # 0.8 10^3/uL (0.0-0.8); MONO % 7.1 % (0.0-5.0); NEUTROPHILS # 7.4 10^3/uL (1.5-8.5); NEUTROPHILS % 69.9 % (36.0-66.0); PLATELET COUNT, AUTOMATED 347 10^3/uL (150-450); RED BLOOD COUNT 4.23 10^6/uL (4.00-5.40); WHITE BLOOD COUNT 10.6 10^3/uL (4.0-10.0)
[2020-09-23 14:23] LABS: ALT/SGPT 15 U/L (12-78); BILIRUBIN,TOTAL 0.4 MG/DL (0.2-1.0); BLOOD UREA NITROGEN 14 MG/DL (7-18); CARBON DIOXIDE LEVEL 43 MEQ/L (21-32); CHLORIDE LEVEL 91 MEQ/L (98-107); CHOLESTEROL LEVEL 110 MG/DL (<200); CHOLESTEROL RISK RATIO 2.619 (<5); CREATININE FOR GFR 0.73 MG/DL (0.55-1.30); GLOMERULAR FILTRATION RATE > 60.0 (>51); GLUCOSE, FASTING 262 MG/DL (70-100); HDL CHOLESTEROL 42 MG/DL (>40); LDL CHOLESTEROL 42 MG/DL (<100); NON-HDL-C 68 MG/DL; POTASSIUM SERUM 5.2 MEQ/L (3.5-5.1); SODIUM LEVEL 138 MEQ/L (136-145); TOTAL PROTEIN 7.3 GM/DL (6.4-8.2); TRIGLYCERIDES LEVEL 129 MG/DL (<150)
[2020-09-23 14:33] LABS: PTH INTACT 58.2 PG/ML (18.5-88.0); TOTAL 25(OH) VITAMIN D 51.1 NG/ML (30.0-100.0); VITAMIN B12 LEVEL 1673 PG/ML (247-911)
[2020-09-23 15:06] LABS: HEMOGLOBIN A1c 10.5 %
== END ==
LOC: M SFHCPLAZ 10:53
PROVIDERS: ATTEND Family Medicine
DX: E11.9 Type 2 diabetes mellitus without complications (principal); E53.8 Deficiency of other specified B group vitamins; E55.9 Vitamin D deficiency, unspecified; R10.13 Epigastric pain

== ENCOUNTER → 2021-04-10 | Outpatient (CLI) | payer OTHER ==
[~2021-04-10] MED LIST changes: +GABA-283 PO; -GABA-845 PO; +MONT10TA10 PO; -MONT10TA4 PO
[2021-04-10 10:30] LABS: BASO # 0.1 10^3/uL (0.0-0.2); BASO % 0.6 % (0.0-1.0); EOS # 0.2 10^3/uL (0.0-0.5); EOS % 1.9 % (0.0-3.0); HEMATOCRIT 41.4 % (36.0-47.0); HEMOGLOBIN 12.8 g/dl (12.0-15.5); LYMPH # 2.3 10^3/uL (1.5-5.0); LYMPH % 24.2 % (24.0-44.0); MEAN CORPUSCULAR HEMOGLOBIN 30.3 pg (27.0-33.0); MEAN CORPUSCULAR HGB CONC 30.9 g/dl (32.0-36.5); MEAN CORPUSCULAR VOLUME 98.1 fl (80.0-96.0); MONO # 0.8 10^3/uL (0.0-0.8); MONO % 8.1 % (2.0-8.0); NEUTROPHILS # 6.1 10^3/uL (1.5-8.5); NEUTROPHILS % 64.8 % (36.0-66.0); PLATELET COUNT, AUTOMATED 315 10^3/uL (150-450); RED BLOOD COUNT 4.22 10^6/uL (4.00-5.40); WHITE BLOOD COUNT 9.5 10^3/uL (4.0-10.0)
[2021-04-10 11:04] LABS: HEMOGLOBIN A1c 8.2 %
[2021-04-10 11:15] LABS: ALT/SGPT 24 U/L (12-78); BILIRUBIN,TOTAL 0.2 MG/DL (0.2-1.0); BLOOD UREA NITROGEN 13 MG/DL (7-18); CALCIUM LEVEL 9.5 MG/DL (8.5-10.1); CARBON DIOXIDE LEVEL 33 MEQ/L (21-32); CHLORIDE LEVEL 99 MEQ/L (98-107); CREATININE FOR GFR 0.71 MG/DL (0.55-1.30); FERRITIN 21 NG/ML (8-252); GLOMERULAR FILTRATION RATE > 60.0 (>51); GLUCOSE, FASTING 266 MG/DL (70-100); NT-PRO BNP 40 PG/ML (<125); POTASSIUM SERUM 4.6 MEQ/L (3.5-5.1); SODIUM LEVEL 137 MEQ/L (136-145)
== END ==
LOC: M LAB 09:23
PROVIDERS: ATTEND Family Medicine
DX: E11.9 Type 2 diabetes mellitus without complications (principal)

== ENCOUNTER → 2021-10-16 | Outpatient (CLI) | payer OTHER ==
[~2021-10-16] MED LIST changes: -CEFD1CAP8 PO; +CEFD300C41 PO; +FLUO-96 PO; -FLUO20CA20 PO; -MONT10TA10 PO; +MONT10TA97 PO; +OMEP40CA4 PO; -OMEP40CA97 PO
== END ==
LOC: M LABSMTC 09:03
PROVIDERS: ATTEND Family Medicine
DX: Z20.822 Contact with and (suspected) exposure to COVID-19 (principal)

== ENCOUNTER → 2022-02-20 | Outpatient (REF) | payer OTHER | LOC: M SFHCPLAZ 14:53 | PROVIDERS: ATTEND Physician Assistant | DX: R05.9 Cough, unspecified (principal) ==

== ENCOUNTER → 2022-02-20 | Outpatient (CLI) | payer MEDICAID, OTHER ==
[2022-02-20 15:25] LABS: BASO # 0.1 10^3/uL (0.0-0.2); BASO % 0.5 % (0.0-1.0); EOS # 0.1 10^3/uL (0.0-0.5); EOS % 0.4 % (0.0-3.0); HEMATOCRIT 38.2 % (36.0-47.0); HEMOGLOBIN 11.7 g/dl (12.0-15.5); LYMPH # 1.4 10^3/uL (1.5-5.0); LYMPH % 11.7 % (24.0-44.0); MEAN CORPUSCULAR HEMOGLOBIN 29.8 pg (27.0-33.0); MEAN CORPUSCULAR HGB CONC 30.6 g/dl (32.0-36.5); MEAN CORPUSCULAR VOLUME 97.2 fl (80.0-96.0); MONO # 0.9 10^3/uL (0.0-0.8); MONO % 7.2 % (2.0-8.0); NEUTROPHILS # 9.5 10^3/uL (1.5-8.5); NEUTROPHILS % 79.2 % (36.0-66.0); PLATELET COUNT, AUTOMATED 387 10^3/uL (150-450); RED BLOOD COUNT 3.93 10^6/uL (4.00-5.40)
[2022-02-20 15:44] LABS: HEMOGLOBIN A1c 6.8 %
[2022-02-20 15:57] LABS: ALBUMIN 3.1 GM/DL (3.2-5.2); ALT/SGPT 14 U/L (12-78); BILIRUBIN,TOTAL 0.3 MG/DL (0.2-1.0); BLOOD UREA NITROGEN 7 MG/DL (7-18); CALCIUM LEVEL 9.6 MG/DL (8.8-10.2); CARBON DIOXIDE LEVEL 41 MEQ/L (21-32); CHLORIDE LEVEL 92 MEQ/L (98-107); CHOLESTEROL LEVEL 110 MG/DL (<200); CREATININE FOR GFR 0.43 MG/DL (0.55-1.30); FERRITIN 108 NG/ML (8-252); FREE T4 1.12 NG/DL (0.76-1.46); GLOMERULAR FILTRATION RATE > 60.0 (>45); GLUCOSE, FASTING 179 MG/DL (70-100); HDL CHOLESTEROL 40 MG/DL (>40); LDL CHOLESTEROL 46 MG/DL (<100); NON-HDL-C 70 MG/DL; POTASSIUM SERUM 3.6 MEQ/L (3.5-5.1); SODIUM LEVEL 138 MEQ/L (136-145); THYROID STIMULATING HORMONE 0.472 uIU/ML (0.358-3.740); TOTAL 25(OH) VITAMIN D 47.3 NG/ML (30.0-100.0); TOTAL PROTEIN 6.6 GM/DL (6.4-8.2); TRIGLYCERIDES LEVEL 120 MG/DL (<150)
== END ==
LOC: M PLALAB 12:41
PROVIDERS: ATTEND Family Medicine
DX: I50.32 Chronic diastolic (congestive) heart failure (principal); E11.9 Type 2 diabetes mellitus without complications; D75.89 Other specified diseases of blood and blood-forming organs; E53.8 Deficiency of other specified B group vitamins; E78.2 Mixed hyperlipidemia; R10.13 Epigastric pain

== ENCOUNTER → 2022-10-30 | Outpatient (REF) | payer OTHER, MEDICAID ==
[~2022-10-30] MED LIST changes: +ALBU2.5V10 INH; +ALBU2.5V10 NEB; +ALBU6.7H6 INH; -ALBU83IN INH; -ALBU83IN NEB; +ASPI81TA26 PO; +DOXY-444 PO; +ERGO500029 PO; -PROV108A INH
== END ==
LOC: M SFHCPLAZ 09:55
PROVIDERS: ATTEND Physician Assistant
DX: R05.1 Acute cough (principal)

== ENCOUNTER → 2023-01-01 | Outpatient (CLI) | payer MEDICAID, OTHER ==
[2023-01-01 14:49] LABS: BASO # 0.1 10^3/uL (0.0-0.2); BASO % 0.8 % (0.0-1.0); EOS # 0.2 10^3/uL (0.0-0.5); EOS % 2.2 % (0.0-3.0); HEMATOCRIT 40.7 % (36.0-47.0); HEMOGLOBIN 12.3 g/dl (12.0-15.5); LYMPH # 2.4 10^3/uL (1.5-5.0); LYMPH % 27.7 % (24.0-44.0); MEAN CORPUSCULAR HEMOGLOBIN 29.5 pg (27.0-33.0); MEAN CORPUSCULAR HGB CONC 30.2 g/dl (32.0-36.5); MEAN CORPUSCULAR VOLUME 97.6 fl (80.0-96.0); MONO # 0.7 10^3/uL (0.0-0.8); MONO % 8.1 % (2.0-8.0); NEUTROPHILS # 5.1 10^3/uL (1.5-8.5); NEUTROPHILS % 60.6 % (36.0-66.0); PLATELET COUNT, AUTOMATED 345 10^3/uL (150-450); RED BLOOD COUNT 4.17 10^6/uL (4.00-5.40); WHITE BLOOD COUNT 8.5 10^3/uL (4.0-10.0)
[2023-01-01 15:23] LABS: ALKALINE PHOSPHATASE 112 U/L (46-116); ALT/SGPT 23 U/L (7.0-40); AST/SGOT < 8 U/L (<34); BILIRUBIN,TOTAL 0.2 MG/DL (0.3-1.2); BLOOD UREA NITROGEN 12 MG/DL (9-23); CALCIUM LEVEL 9.9 MG/DL (8.3-10.6); CARBON DIOXIDE LEVEL 37 MMOL/L (20-31); CHLORIDE LEVEL 100 MMOL/L (98-107); CREATININE FOR GFR 0.58 MG/DL (0.55-1.30); GLOMERULAR FILTRATION RATE > 60.0 (>45); GLUCOSE, FASTING 177 MG/DL (74-106); SODIUM LEVEL 138 MMOL/L (136-145); TOTAL PROTEIN 7.3 G/DL (5.7-8.2)
[2023-01-01 15:26] LABS: TOTAL 25(OH) VITAMIN D 23.5 NG/ML (20.0-100.0)
[2023-01-01 15:27] LABS: FERRITIN 9.8 NG/ML (7.3-270.7); THYROID STIMULATING HORMONE 1.092 uIU/ML (0.55-4.78)
[2023-01-01 15:28] LABS: PTH INTACT 49.3 PG/ML (18.5-88.0)
[2023-01-01 15:30] LABS: FREE T4 0.91 NG/DL (0.89-1.76); VITAMIN B12 LEVEL 1468 PG/ML (211-911)
[2023-01-02 19:07] LABS: H PYLORI SERUM QUANT IgG ABY 0.07 (0.00-0.79); IMMUNOTYPING SERUM IGA SO 165 mg/dL (87-352); IMMUNOTYPING SERUM IGM SO 89 mg/dL (26-217)
== END ==
LOC: M PLALAB 10:27
PROVIDERS: ATTEND Family Medicine
DX: E55.9 Vitamin D deficiency, unspecified (principal); I50.32 Chronic diastolic (congestive) heart failure; R10.13 Epigastric pain; E53.8 Deficiency of other specified B group vitamins; D75.89 Other specified diseases of blood and blood-forming organs; E78.2 Mixed hyperlipidemia

== ENCOUNTER → 2023-02-14 | Outpatient (CLI) | payer OTHER | LOC: M WHC 11:45 | PROVIDERS: ATTEND Nurse Practitioner Family | DX: Z12.31 Encounter for screening mammogram for malignant neoplasm of breast (principal) ==

== ENCOUNTER → 2023-02-14 | Outpatient (REF) | payer OTHER, MEDICAID | LOC: M SFHCWAGY 15:39 | PROVIDERS: ATTEND Nurse Practitioner Family | DX: Z12.4 Encounter for screening for malignant neoplasm of cervix (principal) ==

== ENCOUNTER → 2023-04-23 | Outpatient (CLI) | payer OTHER | LOC: M WHC 12:00 | PROVIDERS: ATTEND Nurse Practitioner Family | DX: N64.4 Mastodynia (principal); R10.2 Pelvic and perineal pain; Z13.820 Encounter for screening for osteoporosis; D17.1 Benign lipomatous neoplasm of skin and subcutaneous tissue of trunk; R92.1 Mammographic calcification found on diagnostic imaging of breast; M85.851 Other specified disorders of bone density and structure, right thigh; M85.852 Other specified disorders of bone density and structure, left thigh ==

== ENCOUNTER → 2023-10-31 | Outpatient (CLI) | payer OTHER ==
[~2023-10-31] MED LIST changes: +CEFD1CAP9 PO; -CEFD300C41 PO; +CELE0.09 PO; -CELE1CAP9 PO; +EZET10TA58 PO; -GABA-283 PO; +GABA-284 PO; -ZETI10TA16 PO
== END ==
LOC: M WHC 09:27
PROVIDERS: ATTEND Nurse Practitioner Family
DX: R92.8 Other abnormal and inconclusive findings on diagnostic imaging of breast (principal)

== ENCOUNTER → 2024-03-04 | Outpatient (CLI) | payer OTHER ==
[2024-03-04 13:38] LABS: BASO # 0.1 10^3/uL (0.0-0.2); BASO % 0.8 % (0.0-1.0); EOS # 0.2 10^3/uL (0.0-0.5); EOS % 1.9 % (0.0-3.0); HEMOGLOBIN 12.4 g/dl (12.0-15.5); LYMPH # 2.5 10^3/uL (1.5-5.0); LYMPH % 30.6 % (24.0-44.0); MEAN CORPUSCULAR HEMOGLOBIN 29.2 pg (27.0-33.0); MEAN CORPUSCULAR HGB CONC 29.5 g/dl (32.0-36.5); MEAN CORPUSCULAR VOLUME 99.1 fl (80.0-96.0); MONO # 0.7 10^3/uL (0.0-0.8); MONO % 8.2 % (2.0-8.0); NEUTROPHILS # 4.8 10^3/uL (1.5-8.5); NEUTROPHILS % 57.8 % (36.0-66.0); PLATELET COUNT, AUTOMATED 325 10^3/uL (150-450); RED BLOOD COUNT 4.24 10^6/uL (4.00-5.40); WHITE BLOOD COUNT 8.3 10^3/uL (4.0-10.0)
[2024-03-04 13:59] LABS: ALKALINE PHOSPHATASE 96 U/L (46-116); ALT/SGPT 19 U/L (7.0-40); AST/SGOT 16 U/L (<34); BILIRUBIN,TOTAL 0.2 MG/DL (0.3-1.2); BLOOD UREA NITROGEN 11 MG/DL (9-23); CALCIUM LEVEL 9.5 MG/DL (8.3-10.6); CARBON DIOXIDE LEVEL 39 MMOL/L (20-31); CHLORIDE LEVEL 98 MMOL/L (98-107); CHOLESTEROL LEVEL 225 MG/DL (<200); CHOLESTEROL RISK RATIO 3.83 (<5); CREATININE FOR GFR 0.58 MG/DL (0.55-1.30); FERRITIN 5.5 NG/ML (7.3-270.7); GLOMERULAR FILTRATION RATE > 60.0 (>45); GLUCOSE, FASTING 207 MG/DL (74-106); HDL CHOLESTEROL 58.6 MG/DL (>40); LDL CHOLESTEROL 137.4 MG/DL (<100); NON-HDL-C 166.4 MG/DL; POTASSIUM SERUM 4.5 MMOL/L (3.5-5.1); PTH INTACT 99.1 PG/ML (18.5-88.0); SODIUM LEVEL 136 MMOL/L (136-145); THYROID STIMULATING HORMONE 1.512 uIU/ML (0.55-4.78); TOTAL PROTEIN 6.8 G/DL (5.7-8.2); TRIGLYCERIDES LEVEL 145 MG/DL (<150)
[2024-03-04 14:01] LABS: FREE T4 0.88 NG/DL (0.89-1.76)
[2024-03-04 14:02] LABS: VITAMIN B12 LEVEL 1664 PG/ML (211-911)
[2024-03-04 14:07] LABS: HEMOGLOBIN A1c 10.1 % (4.0-6.0)
[2024-03-06 16:09] LABS: SOLUBLE TRANSFERRIN RECEPTOR 20.3 nmol/L (12.2-27.3)
== END ==
LOC: M PLALAB 10:30
PROVIDERS: ATTEND Family Medicine
DX: E55.9 Vitamin D deficiency, unspecified (principal)

== ENCOUNTER → 2024-03-12 | Outpatient (REF) | payer OTHER, MEDICAID | LOC: M SFHCPLAZ 18:01 | PROVIDERS: ATTEND Family Medicine | DX: I50.32 Chronic diastolic (congestive) heart failure (principal); D50.9 Iron deficiency anemia, unspecified; E78.2 Mixed hyperlipidemia ==